=== PATIENT | male | born 1970 | race African-American/Black ===

== ENCOUNTER 2018-09-21 00:38 | Emergency (ER) | payer SELFPAY ==
--- OUTSIDE RECORDS SUMMARY | 2018-09-21 00:39 | XMS REPORT | Clinical Summary ---
:1970 Author Organization [facility] Address [address] [place] [id number] Care Team Providers Name Role Phone Asked, No Pcp Primary Care Provider Unavailable Allergies No Known Allergies Medications Medication Sig Dispensed Refills Start Date End Date Status hydrALAZINE Take 25 mg by 0 Active (APRESOLINE) 25 MG mouth 3 (three) tablet times a day. amLODIPine (NORVASC) 10 Take 10 mg by 0 Active mg tablet mouth daily. lisinopril Take 10 mg by 0 Active (PRINIVIL,ZESTRIL) 10 mouth daily. mg tablet insulin NPH and regular Inject under the 0 Active human (NovoLIN 70/30) skin. 100 unit/mL (70-30) injection Active Problems Not on file Family History Medical History Relation Name Comments No Known Problems Father Diabetes Mother Diabetes Other siblings Heart disease Other siblings Relation Name Status Comments Father Alive Mother Alive Other siblings Alive Social History Tobacco Use Types Packs/Day Years Used Date Current Every Day Smoker Cigars Smokeless Tobacco: Never Used Alcohol Use Drinks/Week oz/Week Comments No Sex Assigned at Date Recorded Not on file Job Start Date Occupation Industry Not on file Not on file Not on file Travel History Travel Start Travel End No recent travel history available. Last Filed Vital Signs Not on file Plan of Treatment Health Maintenance Due Date Last Done Comments INFLUENZA VACCINE 05/14/2018 HEPATITIS B VACCINES Aged Out No longer eligible based on patient's age to complete this topic IPV VACCINES Aged Out No longer eligible based on patient's age to complete this topic MENINGOCOCCAL VACCINE Aged Out No longer eligible based on patient's age to complete this topic Results Not on fileafter 09/20/2017 Insurance Payer Benefit Plan / Group Subscriber ID Type Phone Address [employer] xxxxxxxxx Workers [employer] Advance Directives Patient has advance care planning documents on file. For more information, please contact:Carlyle Hartley[address] [place] [address]
[2018-09-21 02:13] LABS: Protime INR 0.9
[2018-09-21 02:27] LABS: Absolute Lymphocytes (CBC) 1.8 K/uL (0.7-4.9); Absolute Monocytes 0.3 K/uL (0.1-1.3); Absolute Neutrophil 4.3 K/uL (1.8-8.0); Basophils % 2.8 % (0-1.3); Eosinophils % 1.1 % (0-4.4); Hematocrit 46.3 % (39.6-49.0); Lymphocytes % 26.8 % (15.3-44.8); MCH 30.8 pg (27.0-35.0); MCV 91.4 fL (80-100); MPV 9.3 fL (7.6-11.3); Monocytes % 5.2 % (3.3-12.3); RBC Red Blood Cell Count 5.06 M/uL (4.33-5.43)
--- NOTE | 2018-09-21 02:50 | ER ---
Nurse's Notes [facility] Name: Gustavo Huffman Age: 48 yrs Sex: Male : 1970 Arrival Date: 09/21/2018 Time: 00:39 Bed 16 Private MD: Diagnosis: Pain in hand and fingers Presentation: 09/21 00:58 Presenting complaint: Patient states: he had been out drinking and came home and went aa1 to sleep about 1900 and woke up at approx 2215 with tingling in his R hand. Denies any other symptoms. Transition of care: patient was not received from another setting of care. Onset of symptoms was September 20, 2018. Risk Assessment: Do you want to hurt yourself or someone else? Patient reports no desire to harm self or others. Initial Sepsis Screen: Does the patient meet any 2 criteria? No. Patient's initial sepsis screen is negative. Does the patient have a suspected source of infection? No. Patient's initial sepsis screen is negative. Care prior to arrival: None. 00:58 Method Of Arrival: Ambulatory aa1 00:58 Acuity: DAVID 3 aa1 Triage Assessment: 00:48 Pain: Complains of pain in right hand. cc3 01:09 General: Appears in no apparent distress. comfortable, Behavior is calm, cooperative, aa1 appropriate for age. Historical: - Allergies: : No Known Allergies; aa1 - Home Meds: :09 Insulin: Novolin N Sub-Q 30 unit twice a day [Active]; Hydralazine Oral 2 times per day aa1 [Active]; losartan Oral once daily [Active]; atorvastatin oral oral once daily [Active]; Metformin Oral 2 times per day [Active]; amlodipine oral once daily [Active]; - PMHx: 01:09 Diabetes - IDDM; Hypertension; SD; aa1 - PSHx: 01:09 None; aa1 - Immunization history:: Flu vaccine is not up to date. - Social history:: Smoking status: Patient uses tobacco products, cigars. - Ebola Screening: : No symptoms or risks identified at this time. Screenin:48 Abuse screen: Denies threats or abuse. Denies injuries from another. Nutritional cc3 screening: No deficits noted. Tuberculosis screening: No symptoms or risk factors identified. Fall Risk Ambulatory Aid- None/Bed Rest/Nurse Assist (0 pts). Gait- Normal/Bed Rest/Wheelchair (0 pts) Mental Status- Oriented to own ability (0 pts). 02:30 Patient has been NPO before screening. The patient is alert, able to follow commands. cc3 The patient does not exhibit slurred or garbled speech The patient is not exhibiting difficulty speaking. The patient does not exhibit difficulty understanding words. The patient is able to swallow own secretions with no drooling or need for suction. Patient tolerated one teaspoon of water. No drooling, immediate coughing, gurgling, or clearing of the throat was noted. The patient tolerated 90mL of water. No drooling, immediate coughing, gurgling, or clearing of the throat was noted. The patient passed the bedside swallow screening. Oral medications may be given as ordered. Contact Physician for further diet orders. Provider notified of bedside swallow screening results: Nicole MCKINNON. Assessment: 00:48 General: Appears in no apparent distress. comfortable, Behavior is calm, cooperative, cc3 appropriate for age. Pain: Complains of pain in right hand. Neuro: Level of Consciousness is awake, alert, obeys commands, Oriented to person, place, time, situation, Appropriate for age. Cardiovascular: Denies chest pain. Respiratory: Airway is patent Respiratory effort is even, unlabored, Respiratory pattern is regular, symmetrical. GI: Abdomen is round obese. : No signs and/or symptoms were reported regarding the genitourinary system. EENT: No signs and/or symptoms were reported regarding the EENT system. Derm: No signs and/or symptoms reported regarding the dermatologic system. Musculoskeletal: Circulation, motion, and sensation intact. Range of motion: intact in all extremities. 01:30 Reassessment: Patient appears in no apparent distress at this time. Patient and/or cc3 family updated on plan of care and expected duration. Pain level reassessed. Patient is alert, oriented x 3, equal unlabored respirations, skin warm/dry/pink. 02:15 Reassessment: Patient appears in no apparent distress at this time. Patient and/or cc3 family updated on plan of care and expected duration. Pain level reassessed. Patient is alert, oriented x 3, equal unlabored respirations, skin warm/dry/pink. 03:00 Reassessment: Patient appears in no apparent distress at this time. Patient and/or cc3 family updated on plan of care and expected duration. Pain level reassessed. Patient is alert, oriented x 3, equal unlabored respirations, skin warm/dry/pink. CHECKING DEPARTMENT SUPERVISOR Noé discharged the patient home, no prescription given. IV cannula removed and patient left ER vitally stable and ambulatory with his family. Vital Signs: 01:09 BP 143 / 94; Pulse 78; Resp 18; Temp 97.9; Pulse Ox 100% on R/A; Weight 118.39 kg; aa1 Height 6 ft. 1 in. (185.42 cm); Pain 0/10; 02:36 BP 125 / 72; Pulse 66; Resp 18 S; Pulse Ox 97% on R/A; cc3 01:09 Body Mass Index 34.43 (118.39 kg, 185.42 cm) aa1 ED Course: 00:39 Patient arrived in ED. ds1 00:48 Ragini Griffin is Primary Nurse. cc3 00:48 Patient has correct armband on for positive identification. Placed in gown. Bed in low cc3 position. Call light in reach. Side rails up X 1. radiation monitor on. Pulse ox on. NIBP on. 01:05 Triage completed. aa1 01:09 Arm band placed on. aa1 01:18 [facility]. nh 01:18 Barry Dawkins MD is Attending Physician. nh 01:50 Radiology exam delayed due to IV being inserted for labs at this time. kw1 02:01 Inserted saline lock: 20 gauge in left antecubital area, using aseptic technique. Blood oe collected. 02:07 CT Stroke Brain w/o Contrast In Process Unspecified. EDMS 02:08 Patient moved to radiology via stretcher. kw1 02:15 X-ray completed. Patient moved back from radiology. sg4 02:17 Stroke CXR 1 View In Process Unspecified. EDMS 03:00 No provider procedures requiring assistance completed. IV discontinued, intact, cc3 bleeding controlled, No redness/swelling at site. Pressure dressing applied. Administered Medications: No medications were administered Point of Care Testing: Blood Glucose: 02:28 Blood Glucose: 244 mg/dL; cc3 Ranges: Outcome: 02:49 Discharge ordered by . nh 03:00 Discharged to home ambulatory, with family. cc3 03:00 Condition: stable 03:00 Discharge instructions given to patient, family, Instructed on discharge instructions, follow up and referral plans. Demonstrated understanding of instructions, follow-up care. 03:03 Patient left the ED. cc3 Signatures: Dispatcher [employer] EDEmi Hammond, RN RN aa1 Nicole Umanzor, KITCHENWHERE MAKER KITCHENWHERE MAKER indira Drew, Alpa ds1 Michael Henderson Kimberly kw1 Ragini Griffin cc3 Jessica Jaquez4
--- NOTE | 2018-09-21 02:50 | EDPHYS ---
Physician Documentation [facility] Name: Gustavo Huffman Age: 48 yrs Sex: Male : 1970 Arrival Date: 09/21/2018 Time: 00:39 Bed 16 Private MD: ED Physician Barry Dawkins HPI: 09/21 02:46 This 48 yrs old Black Male presents to ER via Ambulatory with complaints of Numbness Of nh Hand. 02:46 The patient or guardian reports numbness. The complaints affect the right hand nh diffusely. Context: The problem was sustained at home. Onset: The symptoms/episode began/occurred acutely, just prior to arrival. Modifying factors: The symptoms are alleviated by nothing, the symptoms are aggravated by nothing. Associated signs and symptoms: The patient has no apparent associated signs or symptoms. Severity of symptoms: At their worst the symptoms were moderate, just prior to arrival, in the emergency department the symptoms are unchanged. The patient has not experienced similar symptoms in the past. The patient has not recently seen a physician. Patient reports that he was sleeping on his right arm. He woke up and his right hand was asleep. Since, it has localized more to the ring and pinky finger.. Historical: - Allergies: : No Known Allergies; aa1 - Home Meds: : Insulin: Novolin N Sub-Q 30 unit twice a day [Active]; Hydralazine Oral 2 times per day aa1 [Active]; losartan Oral once daily [Active]; atorvastatin oral oral once daily [Active]; Metformin Oral 2 times per day [Active]; amlodipine oral once daily [Active]; - PMHx: 01:09 Diabetes - IDDM; Hypertension; SD; aa1 - PSHx: 01:09 None; aa1 - Immunization history:: Flu vaccine is not up to date. - Social history:: Smoking status: Patient uses tobacco products, cigars. - Ebola Screening: : No symptoms or risks identified at this time. ROS: 02:46 Constitutional: Negative for fever, chills, and weight loss, Eyes: Negative for injury, nh pain, redness, and discharge, ENT: Negative for injury, pain, and discharge, Neck: Negative for injury, pain, and swelling, Cardiovascular: Negative for chest pain, palpitations, and edema, Respiratory: Negative for shortness of breath, cough, wheezing, and pleuritic chest pain, Abdomen/GI: Negative for abdominal pain, nausea, vomiting, diarrhea, and constipation, Back: Negative for injury and pain, : Negative for injury, bleeding, discharge, and swelling, Skin: Negative for injury, rash, and discoloration, Neuro: Negative for headache, weakness, numbness, tingling, and seizure, Psych: Negative for depression, anxiety, suicide ideation, homicidal ideation, and hallucinations, Allergy/Immunology: Negative for hives, rash, and allergies, Endocrine: Negative for neck swelling, polydipsia, polyuria, polyphagia, and marked weight changes, Hematologic/Lymphatic: Negative for swollen nodes, abnormal bleeding, and unusual bruising. 02:46 MS/extremity: Positive for paresthesias, tingling. Exam: 02:46 Constitutional: This is a well developed, well nourished patient who is awake, alert, nh and in no acute distress. Head/Face: Normocephalic, atraumatic. Eyes: Pupils equal round and reactive to light, extra-ocular motions intact. Lids and lashes normal. Conjunctiva and sclera are non-icteric and not injected. Cornea within normal limits. Periorbital areas with no swelling, redness, or edema. ENT: Nares patent. No nasal discharge, no septal abnormalities noted. Tympanic membranes are normal and external auditory canals are clear. Oropharynx with no redness, swelling, or masses, exudates, or evidence of obstruction, uvula midline. Mucous membranes moist. Neck: Trachea midline, no thyromegaly or masses palpated, and no cervical lymphadenopathy. Supple, full range of motion without nuchal rigidity, or vertebral point tenderness. No Meningismus. Chest/axilla: Normal chest wall appearance and motion. Nontender with no deformity. No lesions are appreciated. Cardiovascular: Regular rate and rhythm with a normal S1 and S2. No gallops, murmurs, or rubs. Normal PMI, no JVD. No pulse deficits. Respiratory: Lungs have equal breath sounds bilaterally, clear to auscultation and percussion. No rales, rhonchi or wheezes noted. No increased work of breathing, no retractions or nasal flaring. Abdomen/GI: Soft, non-tender, with normal bowel sounds. No distension or tympany. No guarding or rebound. No evidence of tenderness throughout. Back: No spinal tenderness. No costovertebral tenderness. Full range of motion. Skin: Warm, dry with normal turgor. Normal color with no rashes, no lesions, and no evidence of cellulitis. MS/ Extremity: Pulses equal, no cyanosis. Neurovascular intact. Full, normal range of motion. Neuro: Awake and alert, GCS 15, oriented to person, place, time, and situation. Cranial nerves II-XII grossly intact. Motor strength 5/5 in all extremities. Sensory grossly intact. Cerebellar exam normal. Normal gait. Psych: Awake, alert, with orientation to person, place and time. Behavior, mood, and affect are within normal limits. Vital Signs: 01:09 BP 143 / 94; Pulse 78; Resp 18; Temp 97.9; Pulse Ox 100% on R/A; Weight 118.39 kg; aa1 Height 6 ft. 1 in. (185.42 cm); Pain 0/10; 02:36 BP 125 / 72; Pulse 66; Resp 18 S; Pulse Ox 97% on R/A; cc3 01:09 Body Mass Index 34.43 (118.39 kg, 185.42 cm) aa1 MDM: 01:18 Patient medically screened. or 02:46 Data reviewed: vital signs, nurses notes, and as a result, I will discharge patient. or Counseling: I had a detailed discussion with the patient and/or guardian regarding: the historical points, exam findings, and any diagnostic results supporting the discharge/admit diagnosis, the need for outpatient follow up, to return to the emergency department if symptoms worsen or persist or if there are any questions or concerns that arise at home. 09/21 01:36 Order name: Basic Metabolic Panel; Complete Time: 02:18 or 09/21 01:36 Order name: CBC with Diff; Complete Time: 02:33 or 09/21 01:36 Order name: Protime (+inr); Complete Time: 02:33 or 09/21 01:36 Order name: Ptt, Activated; Complete Time: 02:33 or 09/21 01:36 Order name: CT Stroke Brain w/o Contrast or 09/21 01:36 Order name: Stroke CXR 1 View or 09/21 01:36 Order name: EKG; Complete Time: 01:37 or 09/21 01:36 Order name: Accucheck; Complete Time: 02:30 or 09/21 01:36 Order name: Cardiac monitoring; Complete Time: 02:30 or 09/21 01:36 Order name: EKG - Nurse/Tech; Complete Time: 02:30 or 09/21 01:36 Order name: IV Saline Lock; Complete Time: 02:30 or 09/21 01:36 Order name: Labs collected and sent; Complete Time: 02:30 or 09/21 01:36 Order name: NPO; Complete Time: 02:30 or 09/21 01:36 Order name: O2 Per Protocol; Complete Time: 02:30 or 09/21 01:36 Order name: O2 Sat Monitoring; Complete Time: 02:30 or 09/21 01:36 Order name: Stroke Swallow Screen; Complete Time: 02:41 or Administered Medications: No medications were administered Point of Care Testing: Blood Glucose: 02:28 Blood Glucose: 244 mg/dL; cc3 Ranges: Critical Glucose Levels:Adult <50 mg/dl or >400 mg/dl <40 mg/dl or >180 mg/dl Disposition: 09/21/18 02:49 Discharged to Home. Impression: Pain in hand and fingers. - Condition is Stable. - Discharge Instructions: Ulnar Nerve Transposition. - Medication Reconciliation Form, Thank You Letter, Antibiotic Education, Prescription Opioid Use form. - Follow up: Private Physician; When: 2 - 3 days; Reason: Recheck today's complaints. - Problem is new. - Symptoms are unchanged. Addendum: 09/24/2018 21:51 Co-signature as Attending Physician, Barry Dawkins MD Available for consultation at p s1 all times. . Signatures: Dispatcher [employer] Emi Hanson, RN RN aa1 Nicole Umanzor, TOWN MARSHAL T[place] MARSHAL or Barry Dawkins MD MD ps1 Ragini Griffin cc3 Corrections: (The following items were deleted from the chart) 09/21 03:03 02:49 09/21/2018 02:49 Discharged to Home. Impression: Pain in hand and fingers. cc3 Condition is Stable. Forms are Medication Reconciliation Form, Thank You Letter, Antibiotic Education, Prescription Opioid Use. Follow up: Private Physician; When: 2 - 3 days; Reason: Recheck today's complaints. Problem is new. Symptoms are unchanged. or
--- NOTE | 2018-09-21 12:26 | RAD REPORT ---
EXAM DESCRIPTION: CT - Ct Stroke Brain Wo Cont - 09/21/2018 5:15 am CLINICAL HISTORY: NUMBNESS CVA symptomology COMPARISON: No comparisons TECHNIQUE: All CT scans are performed using dose optimization technique as appropriate and may inclu de automated exposure control or mA/KV adjustment according to patient size. FINDINGS: No intracranial hemorrhage, hydrocephalus or extra-axial fluid collection.No areas of brai n edema or evidence of midline shift. The paranasal sinuses and mastoids are clear. The calvarium is intact. IMPRESSION: No acute intracranial abnormality. If there is continued clinical concern for CVA, MR i maging of the brain would be recommended.
--- NOTE | 2018-09-21 12:32 | RAD REPORT ---
EXAM DESCRIPTION: RAD - Chest Single View - 09/21/2018 2:16 am CLINICAL HISTORY: PAIN Chest pain. COMPARISON: Chest Single View dated 12/18/2016; CHEST PA AND LAT 2 VIEW dated 08/30/2015; CHEST SINGLE VIEW dated 03/28/2011 FINDINGS: Portable technique limits examination quality. The lungs are grossly clear. The heart is normal in size. No displaced fractures. IMPRESSION: No acute intrathoracic process suspected.
--- NOTE | 2018-09-22 07:13 | EKG ---
Test Date: 2018-09-21 Test Time: 02:18:39 Land Survey Technician: [place] MEASUREMENT RESULTS: Intervals: Rate: 69 KS: 162 QRSD: 102 QT: 388 QTc: 415 [place]: P: 55 KS: 162 QRS: 85 T: 59 INTERPRETIVE STATEMENTS: Normal sinus rhythm Normal ECG Compared to ECG 12/19/2016 01:15:59 Myocardial infarct finding no longer present ST (T wave) deviation no longer present Electronically Signed On 09-22-18 07:11:08 HEAVY EQUIPMENT PLUMBING SUPERVISOR by Shaun Madsen
== END 2018-09-21 03:03 | disposition home or self-care (01) ==
LOC: ER 00:38
DX: M79.641 Pain in right hand (principal); M79.644 Pain in right finger(s); E11.9 Type 2 diabetes mellitus without complications; I10 Essential (primary) hypertension; I25.2 Old myocardial infarction; Z79.4 Long term (current) use of insulin; Z79.899 Other long term (current) drug therapy; Z72.0 Tobacco use
CPT/HCPCS: 36415; 70450; 71045; 80048; 82962; 85025; 85610; 85730; 93005; 99284

== ENCOUNTER 2023-08-04 10:49 | Emergency (ER) | payer OTHER ==
--- OUTSIDE RECORDS SUMMARY | 2023-08-04 10:55 | XMS REPORT | Continuity of Care Document ---
:1970 Author Organization [facility] t Address [address] [place] [address] Care Team Providers Name Role Phone PCP, PATIENT DOES NOT HAVE A Primary Care Physician UnavailJUNIE Lr Attending Clinician Unavailable RINKU YUAN Attending Clinician Unavailable SASKIA BEASLEY Attending Clinician Unavailable LAB90 Attending Clinician Unavailable MUMTAZ PRECIADO Attending Clinician Unavailable KADY WALKER Attending Clinician Unavailable RAFA BARRETT Attending Clinician Unavailable NATALIO GIRARD Attending Clinician Unavailable Tomek_T Attending Clinician Unavailable Doctor Unassigned, Juntura Attending Clinician Unavailable Gastroenterology, Tdc Telemed Attending Clinician UnavailOmid Rachel DO Attending Clinician ADRIA MARQUES Attending Clinician Unavailable Tomek_T Admitting Clinician Unavailable ADRIA MARQUES Admitting Clinician Unavailable Payers Payer Name Policy Type Policy Number Effective Date Expiration Date S rosalinda AETNA MP CVS 9 [id number] 2022 00:00:00 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 ON STAND AETNA [place] [place] [id number] 2022 00:00:00 Problems Condition Condition Condition Status Onset Resolution Last Treating Co mments Source Name Details Category Date Date Treatment Clinician Date Diabetes Diabetes Disease Active Kelse y mellitus mellitus 9-26 Seybol d type 2 type 2 00:00: - without without 00 Externa retinopath retinopath l y (multi y (multi HCC) HCC) DM type 2 DM type 2 Disease Active Shashi sey with with 9-05 Seybold diabetic diabetic 00:00: - mixed mixed 00 Externa hyperlipid hyperlipid l emia emia (multi (multi HCC) HCC) 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 00:00: - 00 Externa l Dermatitis Dermatitis Disease Active K elsey 6-20 Seybold 00:00: - 00 Externa l Type 2 Type 2 Disease Active Wendy diabetes diabetes 4-05 Seybol d mellitus mellitus 00:00: - with with 00 Externa hyperglyce hyperglyce l princess, with princess, with long-term long-term current current use of use of insulin insulin (multi (multi HCC) HCC) Other Other Disease Active Wendy hyperlipid hyperlipid 4-05 Se ybold emia emia 00:00: - 00 Externa l Hypertensi Hypertensi Disease Active K elsey on on 4-05 Seybold 00:00: - 00 Externa l Lumbar Lumbar Disease Active Wendy disc disc 4-05 Seybold herniation herniation 00:00: - 00 Externa l Heartburn Heartburn Disease Active Overview: [facility] 06-14 [facility]att[facility] it[facility] of 00:00: g of this [place] 00 note Medical might be Branch different from the original. Added automatic ally from request for surgery [id number] Abdominal Abdominal Disease Active Overview: Univers pain, pain, 06-14 Formattin ity of epigastric epigastric 00:00: g of this [place] 00 note Medical might be Branch different from the original. Added automatic ally from request for surgery [id number] Nausea Nausea Disease Active Overview: Univer s 06-14 Formattin ity of 00:00: g of this [place] note Medical might be Branch different from the original. Added automatic ally from request for surgery [id number] Allergies, Adverse Reactions, Alerts Allergy Allergy Status Severity Reaction(s) Onset Inactive Treating Comm ents Source Name Type Date Date Clinician NO KNOWN Drug Active Univers ALLERGIE Class ity of [facility] Family History Family Member Diagnosis Comments Start Date Stop Date Source Natural mother Diabetes [facility] Other [facility] Social History Social Habit Start Date Stop Date Quantity Comments Source Gender identity Wendy [address] leahmirtha - External History of tobacco Cigar Smoker Elissa guajardo Joselomirtha - use External [facility] Cigarettes smoked 2023-01-22 2023-01-22 Wendy Josuemirtah - current (pack per 00:00:00 00:00:00 Externa l day) - Reported Cigarette 2023-01-22 2023-01-22 Wendy Josuemirtha - pack-years 00:00:00 00:00:00 External Tobacco use and 2023-01-22 2023-01-22 Smokeless Wendymartínez sanchez - exposure 00:00:00 00:00:00 tobacco non-user External History of Social 2017-04-15 2017-04-[address] function 00:00:00 00:00:00 Hospital Alcohol intake 2016-11-14 2016-11-14 Current [facility] 00:00:00 00:00:00 non-drinker of Hospital alcohol (finding) Sex Ass[birth year] At [birth year] [facility] 00:[facility] Smoking Status Start Date Stop Date Source Smokes tobacco daily 2023-01-22 00:00:00 Wendy Josuemirtha - External Former smoker 2021-06-14 00:00:00 2021-06-14 00:00:00 [facility] Medications Ordered Filled Start Stop Current Ordering Indication Dosage Frequency Signature Comments Components Source Medication Medication Date Date Medication? Clinician (SIG) Name Name Potassium Yes [id number] 10meq Take 1 Wendy Chloride CR 9-25 capsule by Se ybold 10 MEQ oral 00:00: mouth once - Cap CR 00 daily Externa l Metformin Yes [id number] TAKE 1 Ke lsey HCl 1000 MG 9-25 TABLET BY Sey bold oral Tablet 00:00: MOUTH - 00 TWICE Externa DAILY IN l THE MORNING AND IN THE EVENING - TAKE WITH MEALS hydroCHLORO Yes [id number] 25mg Take 1 Wendy thiazide 25 9-25 tablet by Sey bold MG oral 00:00: mouth once - Tablet 00 daily Externa l Amlodipine 2023-0 Yes [id number] 5mg Take 1 K elsey Besylate 9-25 tablet by Seybol d (NORVASC) 5 00:00: mouth once - MG oral 00 daily Externa Tablet l hydrALAZINE Yes [id number] 25mg Take 1 Wendy HCl 25 MG 9-25 tablet by Seybo ld oral Tablet 00:00: mouth - 00 twice Externa daily l Trulicity 3 2022- Yes [id number] 3mg Inject 3 Wendy MG/0.5ML 9-05 mg into Seybold subcutaneou 00:00: the skin - s Solution 00 once a Externa Pen-injecto week. l r Pravastatin Yes [id number] 40mg Take 1 Wendy Sodium 40 9-05 3 tablet (40 Seyb old MG oral 00:00: mg total) - Tablet 00 by mouth Externa nightly. l Metformin Yes [id number] 1000mg Take 1 Wendy HCl 1000 MG 9-05 tablet Seybol d oral Tablet 00:00: (1,000 mg - 00 total) by Externa mouth l daily (with breakfast) . Insulin Yes [id number] 10 units Ke lsey Regular 9-05 sc once Seybold Human 00:00: daily with - (NovoLIN R) 00 meals. 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 Trulicity 3 Yes [id number] 3mg Inject 3 Wendy MG/0.5ML 9-05 mg into Seybold subcutaneou 00:00: the skin - s Solution 00 once a Externa Pen-injecto week. l r Pravastatin 2022- Yes [id number] 40mg Take 1 Wendy Sodium 40 9-05 3 tablet (40 Seyb old MG oral 00:00: mg total) - Tablet 00 by mouth Externa nightly. l Insulin Yes [id number] 10 units Ke lsey Regular 9-05 sc once Seybold Human 00:00: daily with - (NovoLIN R) 00 meals. [employer]talk Software Developer a 100 UNIT/ML l injection Solution Sildenafil 2022-0 Yes [id number] 100mg QD Take 1 Wendy Citrate 9-05 tablet Seybold (Viagra) 00:00: (100 mg - 100 MG oral 00 total) by Ext sohail Tablet mouth l daily as needed for erectile dysfunctio n. Gabapentin 2022-0 Yes [id number] 100mg Q.5D Take 1 Wendy 100 MG oral 7-13 capsule Seybo ld Capsule 00:00: (100 mg - 00 total) by Externa mouth 2 l times daily as needed (pain) Gabapentin 2022-0 Yes [id number] 100mg Q.5D Take 1 Wendy 100 MG oral 7-13 capsule Seybo ld Capsule 00:00: (100 mg - 00 total) by Externa mouth 2 l times daily as needed (pain) Sildenafil 0 3- No [id number] 100mg QD Take 1 Wendy Citrate 6-29 09-05 tablet Seybold (Viagra) 00:00: 00:00 (100 mg - 100 MG oral 00 :00 total) by Ext sohail Tablet mouth l daily as needed for erectile dysfunctio n Trulicity 0 Yes [id number] 1.5mg Inject 1.5 Wendy 1.5 6-20 3 mg into Seybold MG/0.5ML 00:00: the skin - subcutaneou 00 once a [employer] Software Developer a s Solution week l Pen-injecto r Losartan 2022-0 Yes [id number] 25mg Take 1 Shashi sey Potassium 6-20 tablet (25 Seyb old 25 MG oral 00:00: mg total) - Tablet 00 by mouth Externa daily l Ketoconazol 2022-0 Yes [id number] Apply Wendy e 2 % apply 6-20 twice Seybold externally 00:00: daily - Cream 00 Externa l Losartan 2022-0 Yes [id number] 25mg Take 1 Shashi sey Potassium 6-20 tablet (25 Seyb old 25 MG oral 00:00: mg total) - Tablet 00 by mouth Externa daily l Ketoconazol 2022-0 Yes [id number] Apply Wendy e 2 % apply 6-20 twice Seybold externally 00:00: daily - Cream 00 Externa l Losartan 2022-0 Yes [id number] 25mg Take 1 Shashi sey Potassium 6-20 tablet (25 Seyb old 25 MG oral 00:00: mg total) - Tablet 00 by mouth Externa daily l Ketoconazol Yes [id number] Apply Wendy e 2 % apply 6-20 twice Seybold externally 00:00: daily - Cream 00 Externa l Trulicity 2022- No [id number] 1.5mg Inject 1.5 Wendy 1.5 6-20 09-05 3 mg into Seybold MG/0.5ML 00:00: 00:00 the skin - subcutaneou 00 :00 once a [employer] Software Developer a s Solution week l Pen-injecto r Insulin Yes [id number] 10 units K elsey Regular 5-23 sc twice Seybold Human 00:00: daily with - (NovoLIN R) 00 meals Externa 100 UNIT/ML l injection Solution Insulin Yes [id number] 10 units K elsey NPH, 5-23 sc twice Seybold Human,, 00:00: daily - Isophane, 00 Externa (NovoLIN N) l 100 UNIT/ML subcutaneou s Suspension Insulin Yes [id number] 10 units K elsey NPH, 5-23 sc twice Seybold Human,, 00:00: daily - Isophane, 00 Externa (NovoLIN N) l 100 UNIT/ML subcutaneou s Suspension Insulin Yes [id number] 10 units K elsey NPH, 5-23 sc twice Seybold Human,, 00:00: daily - Isophane, 00 Externa (NovoLIN N) l 100 UNIT/ML subcutaneou s Suspension Insulin 2022- No [id number] 10 units Wendy Regular 5-23 09-05 sc twice Seybold Human 00:00: 00:00 daily with - (NovoLIN R) 00 :00 meals Externa 100 UNIT/ML l injection Solution Insulin 2022- No 10U Inject 10 Elissa ey NPH, 5-22 05-22 units into Seybold Human,, 15:39: 00:00 the skin 2 - Isophane, 55 :00 times Externa 100 UNIT/ML daily l subcutaneou s Suspension Insulin 2022- No 10U Inject 10 Elissa ey Regular 5-22 05-22 units into Seybo ld Human 100 15:39: 00:00 the skin 2 - UNIT/ML 55 :00 times Externa injection daily l Solution INSULIN 2022- No [id number] 20U Inject 20 Wendy ISOPHANE & 5-22 05-22 units into Se ybold REG MIX, 15:37: 00:00 the skin - HUMAN, 27 :00 daily Externa (70-30) 100 (with l UNIT/ML breakfast) subcutaneou Patient s takes 30 Suspension units of N and 10 units of R in the mornings AMLODIPINE 0 2022- No [id number] 5mg Take 5 mg Wendy BENZOATE OR 5-22 05-22 by mouth Sey bold 15:35: 00:00 daily - 53 :00 Externa l Lisinopril Yes [id number] 20mg Take 1 K elsey 20 MG oral 5-22 tablet (20 Sey bold Tablet 00:00: mg total) - 00 by mouth Externa daily l Insulin Yes [id number] 10U Inject 10 Wendy Regular 5-22 3 units into Seybol d Human 100 00:00: the skin 2 - UNIT/ML 00 times Externa injection daily l Solution Insulin Yes [id number] 10U Inject 10 Wendy NPH, 5-22 3 units into Seybold Human,, 00:00: the skin 2 - Isophane, 00 times Externa 100 UNIT/ML daily l subcutaneou s Suspension Trulicity Yes [id number] .75mg Inject Wendy 0.75 5-22 3 0.75 mg Seybold MG/0.5ML 00:00: into the - subcutaneou 00 skin once Ext sohail s Solution a week l Pen-injecto r Sildenafil Yes [id number] 100mg QD Take 1 Wendy Citrate 5-22 tablet Seybold (Viagra) 00:00: (100 mg - 100 MG oral 00 total) by Ext sohail Tablet mouth l daily as needed for erectile dysfunctio n Sildenafil 2022- Yes [id number] 100mg QD Take 1 Wendy Citrate 5-22 tablet Seybold (Viagra) 00:00: (100 mg - 100 MG oral 00 total) by Ext sohail Tablet mouth l daily as needed for erectile dysfunctio n Lisinopril 2022- No [id number] 20mg Take 1 Wendy 20 MG oral 03-0420 tablet (20 Se ybold Tablet 00:00: 00:00 mg total) - 00 :00 by mouth Externa daily l Trulicity 2022- No [id number] .75mg Inject Wendy 0.75 03-04 3 0.75 mg Seybold MG/0.5ML 00:00: 00:00 into the - subcutaneou 00 :00 skin once Ext sohail s Solution a week l Pen-injecto r INSULIN Yes [id number] 20U Inject 20 K elsey ISOPHANE & 4-27 units into Sey bold REG MIX, 13:49: the skin - HUMAN, 00 daily Externa (70-30) 100 (with l UNIT/ML breakfast) subcutaneou Patient s takes 30 Suspension units of N and 10 units of R in the mornings AMLODIPINE Yes [id number] 5mg Take 5 mg Wendy BENZOATE OR 4-27 by mouth Seyb old 13:49: daily - 00 Externa l Insulin Yes [id number] For use Shashi sey Syringe-Nee 4-24 twice a Seybo ld dle U-100 00:00: day to - (RELI-ON 00 monitor Externa INS SYR blood l 1CC/30G) glucose 30G 1 ML for ICD does not E11.9 apply Misc BD Insulin Yes Wendy Syringe U/F 4-24 Seybold 31G X 02/26" 00:00: - 1 ML does 00 Externa not apply l Misc Insulin Yes [id number] For use Shashi sey Syringe-Nee 4-24 twice a Seybo ld dle U-100 00:00: day to - (RELI-ON 00 monitor Externa INS SYR blood l 1CC/30G) glucose 30G 1 ML for ICD does not E11.9 apply Misc BD Insulin Yes Wendy Syringe U/F 4-24 Seybold 31G X 02/26" 00:00: - 1 ML does 00 Externa not apply l Misc Insulin Yes [id number] For use Shashi sey Syringe-Nee 4-24 twice a Seybo ld dle U-100 00:00: day to - (RELI-ON 00 monitor Externa INS SYR blood l 1CC/30G) glucose 30G 1 ML for ICD does not E11.9 apply Misc BD Insulin 0 Yes Wendy Syringe U/F 4-24 Seybold 31G X 02/26" 00:00: - 1 ML does 00 Externa not apply l Misc Insulin 0 Yes [id number] For use Shashi sey Syringe-Nee 4-24 twice a Seybo ld dle U-100 00:00: day to - (RELI-ON 00 monitor Externa INS SYR blood l 1CC/30G) glucose 30G 1 ML for ICD does not E11.9 apply Misc BD Insulin Yes Wendy Syringe U/F 4-24 Seybold 31G X 02/26" 00:00: - 1 ML does 00 Externa not apply l Misc Insulin Yes [id number] For use Shashi sey Syringe-Nee 4-24 twice a Seybo ld dle U-100 00:00: day to - (RELI-ON 00 monitor Externa INS SYR blood l 1CC/30G) glucose 30G 1 ML for ICD does not E11.9 apply Misc BD Insulin Yes Wendy Syringe U/F 4-24 Seybold 31G X 02/26" 00:00: - 1 ML does 00 Externa not apply l Misc Insulin Pen Yes [id number] Use as Wendy Needle 4-17 directed Seybold (Maxi-Comfo 00:00: - rt Safety 00 Externa Pen Needle) l 29G X 8MM does not apply Misc Insulin Pen 0 Yes [id number] Use as Wendy Needle 4-17 directed Seybold (Maxi-Comfo 00:00: - rt Safety 00 Externa Pen Needle) l 29G X 8MM does not apply Misc Insulin Pen 0 Yes [id number] Use as Wendy Needle 4-17 directed Seybold (Maxi-Comfo 00:00: - rt Safety 00 Externa Pen Needle) l 29G X 8MM does not apply Misc Insulin Pen Yes [id number] Use as Wendy Needle 4-17 directed Seybold (Maxi-Comfo 00:00: - rt Safety 00 Externa Pen Needle) l 29G X 8MM does not apply Misc Insulin Pen Yes [id number] Use as Wendy Needle 4-17 directed Seybold (Maxi-Comfo 00:00: - rt Safety 00 Externa Pen Needle) l 29G X 8MM does not apply Misc Omeprazole 2022-0 2022- No 40mg Take 1 Elissa ey 40 MG oral 4-11 04-11 capsule Seybo ld Delayed 14:32: 00:00 (40 mg - Release 30 :00 total) by Externa Capsule mouth l daily AMLODIPINE Yes [id number] 5mg Take 5 mg Wendy BENZOATE OR 4-11 by mouth Seyb old 14:18: daily - 10 Externa l INSULIN Yes [id number] 20U Inject 20 K elsey ISOPHANE & 4-11 units into Sey bold REG MIX, 14:18: the skin - HUMAN, 10 daily Externa (70-30) 100 (with l UNIT/ML breakfast) subcutaneou Patient s takes 30 Suspension units of N and 10 units of R in the mornings Omeprazole 0 Yes [id number] 40mg Take 1 Wendy 40 MG oral 4-11 capsule Seybol d Delayed 00:00: (40 mg - Release 00 total) by Externa Capsule mouth l daily Amoxicillin 0 Yes [id number] 1{tbl} Take 1 Wendy -Pot 4-11 tablet by Seybold Clavulanate 00:00: mouth 2 - 875-125 MG 00 times Externa oral Tablet daily l Omeprazole 2022-0 Yes [id number] 40mg Take 1 Wendy 40 MG oral 4-11 capsule Seybol d Delayed 00:00: (40 mg - Release 00 total) by Externa Capsule mouth l daily Omeprazole 2022-0 Yes [id number] 40mg Take 1 Wendy 40 MG oral 4-11 capsule Seybol d Delayed 00:00: (40 mg - Release 00 total) by Externa Capsule mouth l daily Omeprazole 2022-0 Yes [id number] 40mg Take 1 Wendy 40 MG oral 4-11 capsule Seybol d Delayed 00:00: (40 mg - Release 00 total) by Externa Capsule mouth l daily Omeprazole 2022-0 Yes [id number] 40mg Take 1 Wendy 40 MG oral 4-11 capsule Seybol d Delayed 00:00: (40 mg - Release total) by Externa Capsule mouth l daily Omeprazole 2022-0 Yes [id number] 40mg Take 1 Wendy 40 MG oral 4-11 capsule Seybol d Delayed 00:00: (40 mg - Release total) by Externa Capsule mouth l daily Amoxicillin 2022-0 Yes [id number] 1{tbl} Take 1 Wendy -Pot 4-11 tablet by Seybold Clavulanate 00:00: mouth 2 - 875-125 MG 00 times Externa oral Tablet daily l Amoxicillin 2022-0 2022- No [id number] 1{tbl} Take 1 Wendy -Pot 4-11 05-22 tablet by Seybold Clavulanate 00:00: 00:00 mouth 2 - 875-125 MG 00 :00 times Externa oral Tablet daily l Blood 2022-0 Yes [id number] Use twice Ke lsey Glucose 4-05 a day for Seybold Monitoring 00:00: blood - Suppl 00 glucose Externa (Blood monitoring l Glucose for ICD of Monitor E11.9. System) w/Device does not apply Kit Glucose Yes [id number] 1{each} 1 each by Wendy Blood in 4-05 other Seybold vitro Strip 00:00: route 2 - 00 times Externa daily For l use twice a day to monitor blood glucose for ICD E11.9. Lancet 2022-0 Yes [id number] For use Shashi sey Devices 4-05 twice a Seybold (Lancing 00:00: day to - Device) 00 monitor Externa does not blood l apply Misc glucose for ICD E11.9. Lancets 33G 2022-0 Yes [id number] 1{each} 1 each by Wendy does not 4-05 other Seybold apply Misc 00:00: route 2 - 00 times Externa daily For l use twice a day to monitor blood glucose for ICD E11.9. Blood 2022-0 Yes [id number] Use twice Ke lsey Glucose 4-05 a day for Seybold Monitoring 00:00: blood - Suppl 00 glucose Externa (Blood monitoring l Glucose for ICD of Monitor E11.9. System) w/Device does not apply Kit Glucose 2022-0 Yes [id number] 1{each} 1 each by Wendy Blood in 4-05 other Seybold vitro Strip 00:00: route 2 - 00 times Externa daily For l use twice a day to monitor blood glucose for ICD E11.9. Lancet 2022-0 Yes [id number] For use Shashi sey Devices 4-05 twice a Seybold (Lancing 00:00: day to - Device) 00 monitor Externa does not blood l apply Misc glucose for ICD E11.9. Lancets 33G 2022-0 Yes [id number] 1{each} 1 each by Wendy does not 4-05 other Seybold apply Misc 00:00: route 2 - 00 times Externa daily For l use twice a day to monitor blood glucose for ICD E11.9. Blood 2022-0 Yes [id number] Use twice Ke lsey Glucose 4-05 a day for Seybold Monitoring 00:00: blood - Suppl 00 glucose Externa (Blood monitoring l Glucose for ICD of Monitor E11.9. System) w/Device does not apply Kit Glucose 2022-0 Yes [id number] 1{each} 1 each by Wendy Amezcua in 4-05 other Seybold vitro Strip 00:00: route 2 - 00 times Externa daily For l use twice a day to monitor blood glucose for ICD E11.9. Lancet 2022-0 Yes [id number] For use Shashi sey Devices 4-05 twice a Seybold (Lancing 00:00: day to - Device) 00 monitor Externa does not blood l apply Misc glucose for ICD E11.9. Lancets 33G 2022-0 Yes [id number] 1{each} 1 each by Wendy does not 4-05 other Seybold apply Misc 00:00: route 2 - 00 times Externa daily For l use twice a day to monitor blood glucose for ICD E11.9. Blood 2022-0 Yes [id number] Use twice Ke lsey Glucose 4-05 a day for Seybold Monitoring 00:00: blood - Suppl 00 glucose Externa (Blood monitoring l Glucose for ICD of Monitor E11.9. System) w/Device does not apply Kit Glucose 2022-0 Yes [id number] 1{each} 1 each by Wendy Blood in 4-05 other Seybold vitro Strip 00:00: route 2 - 00 times Externa daily For l use twice a day to monitor blood glucose for ICD E11.9. Lancet 2022-0 Yes [id number] For use Shashi sey Devices 4-05 twice a Seybold (Lancing 00:00: day to - Device) 00 monitor Externa does not blood l apply Misc glucose for ICD E11.9. Lancets 33G 2022-0 Yes [id number] 1{each} 1 each by Wendy does not 4-05 other Seybold apply Misc 00:00: route 2 - 00 times Externa daily For l use twice a day to monitor blood glucose for ICD E11.9. Blood 2022-0 Yes [id number] Use twice Ke lsey Glucose 4-05 a day for Seybold Monitoring 00:00: blood - Suppl 00 glucose Externa (Blood monitoring l Glucose for ICD of Monitor E11.9. System) w/Device does not apply Kit Glucose 2022-0 Yes [id number] 1{each} 1 each by Wendy Amezcua in 4-05 other Seybold vitro Strip 00:00: route 2 - 00 times Externa daily For l use twice a day to monitor blood glucose for ICD E11.9. Lancet 2022-0 Yes [id number] For use Shashi sey Devices 4-05 twice a Seybold (Lancing 00:00: day to - Device) 00 monitor Externa does not blood l apply Misc glucose for ICD E11.9. Lancets 33G 2022-0 Yes [id number] 1{each} 1 each by Wendy does not 4-05 other Seybold apply Misc 00:00: route 2 - 00 times Externa daily For l use twice a day to monitor blood glucose for ICD E11.9. Blood 2022-0 Yes [id number] Use twice Ke lsey Glucose 4-05 a day for Seybold Monitoring 00:00: blood - Suppl 00 glucose Externa (Blood monitoring l Glucose for ICD of Monitor E11.9. System) w/Device does not apply Kit Glucose 2022-0 Yes [id number] 1{each} 1 each by Wendy Blood in 4-05 other Seybold vitro Strip 00:00: route 2 - 00 times Externa daily For l use twice a day to monitor blood glucose for ICD E11.9. Lancet Yes [id number] For use Shsahi sey Devices 4-05 twice a Seybold (Lancing 00:00: day to - Device) 00 monitor Externa does not blood l apply Misc glucose for ICD E11.9. Lancets 33G 2022-0 Yes [id number] 1{each} 1 each by Wendy does not 4-05 other Seybold apply Misc 00:00: route 2 - 00 times Externa daily For l use twice a day to monitor blood glucose for ICD E11.9. Metformin 2022-0 2022- No 1000mg Take 1 Shashi sey HCl 1000 MG - 04-03 tablet Seybo ld oral Tablet 14:50: 00:00 (1,000 mg - 51 :00 total) by Externa mouth in l the morning and 1 tablet (1,000 mg total) in the evening. Take with meals. hydrALAZINE 2022-2022- No 25mg Take 1 Shashi sey HCl 25 MG - 04-03 tablet (25 Sey bold oral Tablet 14:50: 00:00 mg total) - 51 :00 by mouth 2 Externa times l daily Lisinopril 2022-2022- No 10mg Take 1 Elissa ey 10 MG oral 01-14-03 tablet (10 Se ybold Tablet 14:50: 00:00 mg total) - 51 :00 by mouth Externa daily l Potassium 2022-2022- No 10meq Take 1 Elissa ey Chloride CR - 04-03 capsule Seyb old 10 MEQ oral 14:50: 00:00 (10 mEq - Cap CR 51 :00 total) by Externa mouth l daily Pravastatin 2022-0 2022- No 20mg Take 1 Shashi sey Sodium 20 - 04-03 tablet (20 Sey bold MG oral 14:50: 00:00 mg total) - Tablet 51 :00 by mouth Externa daily l hydroCHLORO 2022-0 2022- No 25mg Take 1 Shashi sey thiazide 25 -03 04-03 tablet (25 S eybold MG oral 14:50: 00:00 mg total) - Tablet 51 :00 by mouth Externa daily l AMLODIPINE 2022-0 Yes [id number] 5mg Take 5 mg Wendy BENZOATE OR 4-03 by mouth Seyb old 14:04: daily - 06 Externa l INSULIN 2022-0 Yes [id number] 20U Inject 20 K elsey ISOPHANE & 4-03 units into Sey bold REG MIX, 14:04: the skin - HUMAN, 06 daily Externa (70-30) 100 (with l UNIT/ML breakfast) subcutaneou Patient s takes 30 Suspension units of N and 10 units of R in the mornings LOSARTAN 2022-0 2022- No Take by Zara y POTASSIUM -12 15-03 mouth 2 Seybol d OR 14:02: 00:00 times - 13 :00 daily Externa l HYDROXYZINE 2022-0 2022- No Take by Kt garcia HCL OR -12 15-03 mouth 2 Seybold 13:58: 00:00 times - 14 :00 daily Externa l ATORVASTATI 2022-0 2022- No Take by Kt garcia N CALCIUM -12 15-03 mouth Seybold OR 13:56: 00:00 every - 15 :00 night at Externa bedtime l Tadalafil 2022-0 Yes [id number] 10mg QD Take 1 K elsey (Cialis) 10 4-03 tablet (10 Se ybold MG oral 00:00: mg total) - Tablet 00 by mouth Externa daily as l needed for erectile dysfunctio n Amlodipine 2022-0 Yes [id number] 5mg Take 1 K elsey Besylate 4-03 tablet (5 Seybol d (NORVASC) 5 00:00: mg total) - MG oral 00 by mouth Externa Tablet daily l hydrALAZINE 2022-0 Yes [id number] 25mg Take 1 Wendy HCl 25 MG 4-03 tablet (25 Seyb old oral Tablet 00:00: mg total) - 00 by mouth 2 Externa times l daily hydroCHLORO 2022-0 Yes [id number] 25mg Take 1 Wendy thiazide 25 4-03 tablet (25 Se ybold MG oral 00:00: mg total) - Tablet 00 by mouth Externa daily l Lisinopril 2022-0 Yes [id number] 10mg Take 1 K elsey 10 MG oral 4-03 tablet (10 Sey bold Tablet 00:00: mg total) - 00 by mouth Externa daily l Metformin 2023-0 Yes [id number] 1000mg Take 1 Wendy HCl 1000 MG 4-03 tablet Seybol d oral Tablet 00:00: (1,000 mg - 00 total) by Externa mouth in l the morning and 1 tablet (1,000 mg total) in the evening. Take with meals. Potassium 2023-0 Yes [id number] 10meq Take 1 Wendy Chloride CR 4-03 capsule Seybo ld 10 MEQ oral 00:00: (10 mEq - Cap CR 00 total) by Externa mouth l daily Pravastatin 2023-0 Yes [id number] 20mg Take 1 Wendy Sodium 20 4-03 tablet (20 Seyb old MG oral 00:00: mg total) - Tablet 00 by mouth Externa daily l hydrALAZINE 2023-0 Yes [id number] 25mg Take 1 Wendy HCl 25 MG 4-03 tablet (25 Seyb old oral Tablet 00:00: mg total) - 00 by mouth 2 Externa times l daily hydroCHLORO 2023-0 Yes [id number] 25mg Take 1 Ewndy thiazide 25 4-03 tablet (25 Se ybold MG oral 00:00: mg total) - Tablet 00 by mouth Externa daily l Metformin 2023-0 Yes [id number] 1000mg Take 1 Wendy HCl 1000 MG 4-03 tablet Seybol d oral Tablet 00:00: (1,000 mg - 00 total) by Externa mouth in l the morning and 1 tablet (1,000 mg total) in the evening. Take with meals. Pravastatin 2023-0 Yes [id number] 20mg Take 1 Wendy Sodium 20 4-03 tablet (20 Seyb old MG oral 00:00: mg total) - Tablet 00 by mouth Externa daily l hydrALAZINE 2023-0 Yes [id number] 25mg Take 1 Wendy HCl 25 MG 4-03 tablet (25 Seyb old oral Tablet 00:00: mg total) - 00 by mouth 2 Externa times l daily hydroCHLORO 2023-0 Yes [id number] 25mg Take 1 Wendy thiazide 25 4-03 tablet (25 Se ybold MG oral 00:00: mg total) - Tablet 00 by mouth Externa daily l Metformin 2023-0 Yes [id number] 1000mg Take 1 Wendy HCl 1000 MG 4-03 tablet Seybol d oral Tablet 00:00: (1,000 mg - 00 total) by Externa mouth in l the morning and 1 tablet (1,000 mg total) in the evening. Take with meals. Pravastatin 2023-0 Yes [id number] 20mg Take 1 Wendy Sodium 20 4-03 tablet (20 Seyb old MG oral 00:00: mg total) - Tablet 00 by mouth Externa daily l hydrALAZINE 2023-0 Yes [id number] 25mg Take 1 Wendy HCl 25 MG 4-03 tablet (25 Seyb old oral Tablet 00:00: mg total) - 00 by mouth 2 Externa times l daily hydroCHLORO 2023-0 Yes [id number] 25mg Take 1 Wendy thiazide 25 4-03 tablet (25 Se ybold MG oral 00:00: mg total) - Tablet 00 by mouth Externa daily l Tadalafil 2023-0 Yes [id number] 10mg QD Take 1 K elsey (Cialis) 10 4-03 tablet (10 Se ybold MG oral 00:00: mg total) - Tablet 00 by mouth Externa daily as l needed for erectile dysfunctio n Amlodipine 3-0 Yes [id number] 5mg Take 1 K elsey Besylate 4-03 tablet (5 Seybol d (NORVASC) 5 00:00: mg total) - MG oral 00 by mouth Externa Tablet daily l hydrALAZINE 2023-0 Yes [id number] 25mg Take 1 Wendy HCl 25 MG 4-03 tablet (25 Seyb old oral Tablet 00:00: mg total) - 00 by mouth 2 Externa times l daily hydroCHLORO 2023-0 Yes [id number] 25mg Take 1 Wendy thiazide 25 4-03 tablet (25 Se ybold MG oral 00:00: mg total) - Tablet 00 by mouth Externa daily l Lisinopril 2023-0 Yes [id number] 10mg Take 1 K elsey 10 MG oral 4-03 tablet (10 Sey bold Tablet 00:00: mg total) - 00 by mouth Externa daily l Metformin 2023-0 Yes [id number] 1000mg Take 1 Wendy HCl 1000 MG 4-03 tablet Seybol d oral Tablet 00:00: (1,000 mg - 00 total) by Externa mouth in l the morning and 1 tablet (1,000 mg total) in the evening. Take with meals. Potassium 2023-0 Yes [id number] 10meq Take 1 Wendy Chloride CR 4-03 capsule Seybo ld 10 MEQ oral 00:00: (10 mEq - Cap CR 00 total) by Externa mouth l daily Pravastatin 2022-0 Yes [id number] 20mg Take 1 Wendy Sodium 20 4-03 tablet (20 Seyb old MG oral 00:00: mg total) - Tablet 00 by mouth Externa daily l Tadalafil 2022-0 Yes [id number] 10mg QD Take 1 K elsey (Cialis) 10 4-03 tablet (10 Se ybold MG oral 00:00: mg total) - Tablet 00 by mouth Externa daily as l needed for erectile dysfunctio n Amlodipine 2022-0 Yes [id number] 5mg Take 1 K elsey Besylate 4-03 tablet (5 Seybol d (NORVASC) 5 00:00: mg total) - MG oral 00 by mouth Externa Tablet daily l hydrALAZINE 2022-0 Yes [id number] 25mg Take 1 Wendy HCl 25 MG 4-03 tablet (25 Seyb old oral Tablet 00:00: mg total) - 00 by mouth 2 Externa times l daily hydroCHLORO 2022-0 Yes [id number] 25mg Take 1 Wendy thiazide 25 4-03 tablet (25 Se ybold MG oral 00:00: mg total) - Tablet 00 by mouth Externa daily l Lisinopril 2022-0 Yes [id number] 10mg Take 1 K elsey 10 MG oral 4-03 tablet (10 Sey bold Tablet 00:00: mg total) - 00 by mouth Externa daily l Metformin 2022-0 Yes [id number] 1000mg Take 1 Wendy HCl 1000 MG 4-03 tablet Seybol d oral Tablet 00:00: (1,000 mg - 00 total) by Externa mouth in l the morning and 1 tablet (1,000 mg total) in the evening. Take with meals. Potassium 2022-0 Yes [id number] 10meq Take 1 Wendy Chloride CR 4-03 capsule Seybo ld 10 MEQ oral 00:00: (10 mEq - Cap CR 00 total) by Externa mouth l daily Pravastatin 2022-0 Yes [id number] 20mg Take 1 Wendy Sodium 20 4-03 tablet (20 Seyb old MG oral 00:00: mg total) - Tablet 00 by mouth Externa daily l Metformin 2022- No [id number] 1000mg Take 1 Wendy HCl 1000 MG 01-14 tablet Seybo ld oral Tablet 00:00: 00:00 (1,000 mg - 00 :00 total) by Externa mouth in l the morning and 1 tablet (1,000 mg total) in the evening. Take with meals. Pravastatin 2022- No [id number] 20mg Take 1 Wendy Sodium 20 01-14 tablet (20 Sey bold MG oral 00:00: 00:00 mg total) - Tablet 00 :00 by mouth Externa daily l Tadalafil 2022- No [id number] 10mg QD Take 1 Wendy (Cialis) 10 01-14 tablet (10 S eybold MG oral 00:00: 00:00 mg total) - Tablet 00 :00 by mouth Externa daily as l needed for erectile dysfunctio n Amlodipine 2022- No [id number] 5mg Take 1 Wendy Besylate 01-14 tablet (5 Seybo ld (NORVASC) 5 00:00: 00:00 mg total) - MG oral 00 :00 by mouth Externa Tablet daily l Lisinopril 2022- No [id number] 10mg Take 1 Wendy 10 MG oral 01-14 tablet (10 Se ybold Tablet 00:00: 00:00 mg total) - 00 :00 by mouth Externa daily l Potassium 2022- No [id number] 10meq Take 1 Wendy Chloride CR 01-14 capsule Seyb old 10 MEQ oral 00:00: 00:00 (10 mEq - Cap CR 00 :00 total) by Externa mouth l daily Azithromyci 2022- No [id number] Take 2 Wendy n 250 MG 01-14 tablets by Seyb old oral Tablet 00:00: 00:00 mouth on - 00 :00 day 1 then Externa 1 tablet l by mouth daily for 4 days thereafter . Azithromyci 2022- No [id number] Take 2 Wendy n 250 MG -03 04-09 tablets by Seyb old oral Tablet 00:00: 04:59 mouth on - 00 :00 day 1 then Externa 1 tablet l by mouth daily for 4 days thereafter . FAMOTIDINE 2022- No Take by Shashi soliz OR 01-11 mouth 2 Seybold 14:06: 00:00 times - 02 :00 daily Externa l traMADol 50 Yes [id number] 50mg Take 1 [facility] mg tablet 2-27 tablet by ity o f 00:00: mouth at [place] 00 bedtime as Medical needed for Branch Pain (scale 4-6) or Pain (scale 7-10). traMADol 50 Yes [id number] 50mg Take 1 [facility] mg tablet 2-27 tablet by ity o f 00:00: mouth at [place] 00 bedtime as Medical needed for Branch Pain (scale 4-6) or Pain (scale 7-10). traMADol 50 Yes [id number] 50mg Take 1 [facility] mg tablet 2-27 tablet by ity o f 00:00: mouth at [place] 00 bedtime as Medical needed for Branch Pain (scale 4-6) or Pain (scale 7-10). hydrALAZINE Yes 25mg Q.[id number] Take 25 mg [facility] (APRESOLINE 11-[id number] mouth [address] ) 25 MG 14:42: 3D (three) [facility] tablet 24 times a l day. amLODIPine Yes 10mg QD Take 10 mg M [facility] (NORVASC) 11-[address] 10 mg 14:42: daily. Hospita tablet 24 l lisinopril Yes 10mg QD Take 10 mg [facility] (PRINIVIL,Z [address] ESTRIL) 10 14:42: daily. Hospi ta mg tablet 24 l insulin NPH Yes Inject Meth jesus and regular 2-[address] human 14:42: skin. Hospita (NovoLIN 24 l 70/30) 100 unit/mL (70-30) injection LISINOPRIL 2015-10 Yes Take by [facility] ers ORAL 0-17 mouth. ity of 17:18: [address] INSULIN 2015-10 Yes inject Univers ZINC HUMAN 0-17 under the ity of RECOMBINANT 17:18: skin. [place] ([address]) [place] HYDROCHLORO 2015-10 Yes Take by Uni vers THIAZIDE 0-17 mouth. ity of ORAL 17:18: [address] LISINOPRIL 2015-10 Yes Take by [facility] ers ORAL 0-17 mouth. ity of 17:18: [address] INSULIN 2015-10 Yes inject Univers ZINC HUMAN 0-17 under the ity of RECOMBINANT 17:18: skin. [place] ([address]) [place] HYDROCHLORO 2015-10 Yes Take by Uni vers THIAZIDE 0-17 mouth. ity of ORAL 17:18: [address] LISINOPRIL 2015-10 Yes Take by [facility] ers ORAL 0-17 mouth. ity of 12:18: [address] INSULIN 2015-10 Yes inject Univers ZINC HUMAN 0-17 under the ity of RECOMBINANT 12:18: skin. [place] ([address]) [place] HYDROCHLORO 2015-10 Yes Take by Uni vers THIAZIDE 0-17 mouth. ity of ORAL 12:18: [address] acetaminoph 2015-10 Yes 1{tbl} Take 1 Un jenise en-codeine 0-05 tablet by ity of (TYLENOL 00:00: mouth [place] #4) 300-60 00 every 4 Medica l mg tablet (four) Branch hours as needed for Pain for up to 16 doses. acetaminoph 2015-10 Yes 1{tbl} Take 1 Un jenise en-codeine 0-05 tablet by ity of (TYLENOL 00:00: mouth [place] #4) 300-60 00 every 4 Medica l mg tablet (four) Branch hours as needed for Pain for up to 16 doses. acetaminoph 2015-10 Yes 1{tbl} Take 1 Un jenise en-codeine 0-05 tablet by ity of (TYLENOL 00:00: mouth [place] #4) 300-60 00 every 4 Medica l mg tablet (four) Branch hours as needed for Pain for up to 16 doses. Immunizations Ordered Filled Immunization Date Status Comments [facility] e Immunization Name Name Covid-19 Vaccine 2021-03-29 Completed Wendy Vogt (Spikevax), 00:00:00 - Ext ernal Mrna-lnp, Brenden Protein, Pf Covid-19 Vaccine 2021-03-29 Completed Wendy S eybold Moderna (Spikevax), 00:00:00 - Ext ernal Mrna-lnp, Brenden Protein, Pf Covid-19 Vaccine 2021-03-01 Completed Wendy desir Moderna (Spikevax), 00:00:00 - Ext ernal Mrna-lnp, Brenden Protein, Pf Covid-19 Vaccine 2021-03-01 Completed Wendy desir Moderna (Spikevax), 00:00:00 - Ext ernal Mrna-lnp, Brenden Protein, Pf Covid-19 Vaccine Unknown Completed Wendy desir Moderna (Spikevax), - Ext ernal Mrna-lnp, Brenden Protein, Pf Covid-19 Vaccine Unknown Completed Wendy Abdula (Spikevax), - Ext ernal Mrna-lnp, Brenden Protein, Pf Vital Signs Vital Name Observation Time Observation Value Comments Source Body weight 2023-06-18 20:08:00 111.131 kg Wendy Rodriguez thang - External BMI 2023-06-18 20:08:00 32.32 kg/m2 Wendy Effie thang - External Systolic blood 2023-06-18 19:58:00 128 mm[Hg] Wendy Kwon - pressure External Diastolic blood 2023-06-18 19:58:00 77 mm[Hg] Zara Kwon - pressure External Heart rate 2023-06-18 19:58:00 84 /min Wendy S thang - External Body temperature 2023-06-18 19:58:00 36.39 Magdalena Elissa ey Doyle - External Respiratory rate 2023-06-18 19:58:00 15 /min Elissa Kwon - External Body height 2023-06-18 19:58:00 185.4 cm Wendy Effie thang - External Oxygen saturation in 2023-06-18 19:58:00 99 /min Wendy Kwon - Arterial blood by External Pulse oximetry Systolic blood 2023-04-02 20:22:00 122 mm[Hg] Wendy Kwon - pressure External Diastolic blood 2023-04-02 20:22:00 76 mm[Hg] Zara Kwon - pressure External Heart rate 2023-04-02 20:22:00 81 /min Wendy Effie thang - External Body temperature 2023-04-02 20:22:00 37.11 Magdalena Elissa ey Seybold - External Respiratory rate 2023-04-02 20:22:00 14 /min Elissa ey Seybold - External Body height 2023-04-02 20:22:00 185.4 cm Wendy S eybold - External Body weight 2023-04-02 20:22:00 112.038 kg Wendy S eybold - External BMI 2023-04-02 20:22:00 32.59 kg/m2 Wendy S eybold - External Oxygen saturation in 2023-04-02 20:22:00 99 /min Wendy Seybold - Arterial blood by External Pulse oximetry Systolic blood 2023-03-04 20:25:00 112 mm[Hg] Wendy Seybold - pressure External Diastolic blood 2023-03-04 20:25:00 75 mm[Hg] Shashise y Seybold - pressure External Heart rate 2023-03-04 20:25:00 88 /min Wendy S eybold - External Body temperature 2023-03-04 20:25:00 36.61 Magdalena Elissa ey Seybold - External Respiratory rate 2023-03-04 20:25:00 19 /min Elissa ey Seybold - External Body height 2023-03-04 20:25:00 185.4 cm Wendy Rodriguez eybold - External Body weight 2023-03-04 20:25:00 114.76 kg Wendy Rodriguez eybold - External BMI 2023-03-04 20:25:00 33.38 kg/m2 Wendy S eybold - External Oxygen saturation in 2023-03-04 20:25:00 97 /min Wendy Seybold - Arterial blood by External Pulse oximetry Systolic blood 2023-01-22 19:15:00 108 mm[Hg] Wendy Seybold - pressure External Diastolic blood 2023-01-22 19:15:00 72 mm[Hg] Kelse y Seybold - pressure External Heart rate 2023-01-22 19:15:00 82 /min Wendy S eybold - External Body temperature 2023-01-22 19:15:00 36.39 Magdalena Elissa ey Seybold - External Respiratory rate 2023-01-22 19:15:00 15 /min Elissa guajardo Seybold - External Body height 2023-01-22 19:15:00 185.4 cm Wendy Rodriguez eybold - External Body weight 2023-01-22 19:15:00 105.688 kg Wendy S eybold - External BMI 2023-01-22 19:15:00 30.74 kg/m2 Wendy S eybold - External Systolic blood 2023-01-14 18:49:00 110 mm[Hg] Wendy Seybold - pressure External Diastolic blood 2023-01-14 18:49:00 72 mm[Hg] Zara y Seybold - pressure External Heart rate 2023-01-14 18:49:00 115 /min Wendy Rodriguez eybold - External Body temperature 2023-01-14 18:49:00 36.17 Magdalena Elissa guajardo Seybold - External Respiratory rate 2023-01-14 18:49:00 15 /min Elissa guajardo Seybold - External Body height 2023-01-14 18:49:00 185.4 cm Wendy Rodriguez eybold - External Body weight 2023-01-14 18:49:00 107.502 kg Wendy Rodriguez eybold - External BMI 2023-01-14 18:49:00 31.27 kg/m2 Wendy Rodriguez eybold - External Body weight 2021-06-14 14:27:00 118.389 kg [facility] BMI 2021-06-14 14:27:00 34.44 kg/m2 [facility] Procedures Procedure Date / Time Performed Performing Clinician [facility] e REFERRAL- 2021-07-19 05:01:00 Doctor Unassigned, No [facility] REQUEST/RESPONSE Name [facility] Plan of Care Planned Activity Planned Date Details Comments Source Future Scheduled 2023-07-26 Screening for [facility] Test 13:04:05 malignant neoplasm of colon (procedure) [code = 237651745] Future Scheduled 2023-07-26 Screening for [facility] Test 13:04:05 malignant neoplasm of colon (procedure) [code = 359498925] Future Scheduled 2023-07-26 Screening for [facility] Test 13:04:05 malignant neoplasm of colon (procedure) [code = 821942064] Future Scheduled 2023-07-26 [facility]:05 (#1) [code = COVID-19 VACCINE (#1)] Future Scheduled 2023-07-26 Screening for [facility] Test 13:04:05 malignant neoplasm of colon (procedure) [code = 380069841] Future Scheduled 2023-07-26 Screening for [facility] Test 13:04:05 malignant neoplasm of colon (procedure) [code = 305499764] Future Scheduled 2023-07-26 SHINGLES VACCINES [facility] Test 13:04:05 (1 of 2) [code = SHINGLES VACCINES (1 of 2)] Future Scheduled 2023-07-26 INFLUENZA VACCINE [facility] Test 13:04:05 (#1) [code = INFLUENZA VACCINE (#1)] Future Scheduled 2023-07-26 RSV VACCINES > 60 [facility] Test 13:04:05 YR (1 - 1-dose 60+ series) [code = RSV VACCINES > 60 YR (1 - 1-dose 60+ series)] Encounters Start End Encounter Admission Attending Care Care Encounter Source Date/Time Date/Time Type Type Clinicians Facility Department ID 2024-07-07 2024-07-07 Outpatient WENDY VILLAREAL [id number] Wendy 14:20:00 14:20:00 JUNIE Seybol d 2023-09-17 2023-09-17 Outpatient WENDY YUAN [id number] Wendy 15:30:00 15:30:00 RINKU Seybol d 2023-07-09 2023-07-09 Outpatient WENDY VILLAREAL [id number] Wendy 14:40:00 14:40:00 JUNIE Seybol d 2023-07-08 2023-07-08 Outpatient WENDY YUAN [id number] Wendy 00:00:00 00:00:00 RINKU Seybol d 2023-07-06 2023-07-06 Outpatient WENDY YUAN [id number] Wendy 00:00:00 00:00:00 RINKU Seybol d 2023-07-03 2023-07-03 Outpatient WENDY BEASLEY [id number] Wendy 00:00:00 00:00:00 SASKIA Seybol d 2023-06-18 2023-06-18 Outpatient PREZAEffie, WENDY GLASER [id number] Wendy 15:00:00 15:00:00 RINKU Seybol d 2023-06-04 2023-06-04 Outpatient PREZAS, WENDY GLASER [id number] Wendy 09:00:00 09:00:00 RINKU Seybol d 2023-05-27 2023-05-27 Outpatient LAB90 WENDY GLASER [id number] Wendy 12:10:00 12:10:00 Seybol d 2023-05-21 2023-05-21 Outpatient OZZY, WENDY GLASER [id number] Wendy 14:30:00 14:30:00 MUMTAZ Seybol d 2023-05-09 2023-05-09 Outpatient DENISE, WENDY GLASER [id number] Wendy 14:15:00 14:15:00 JALAJA Seybol d 2023-04-25 2023-04-25 Outpatient PREZAEffie, WENDY GLASER [id number] Wendy 00:00:00 00:00:00 RINKU Seybol d 2023-04-25 2023-04-25 Outpatient PREZASWENDY [id number] Wendy 00:00:00 00:00:00 RINKU Seybol d 2023-04-12 2023-04-12 Outpatient ARNOLD, WENDY GLASER [id number] Wendy 13:30:00 13:30:00 RAFA Seybol d 2023-04-11 2023-04-11 Outpatient PREZAWENDY Rodriguez [id number] Wendy 00:00:00 00:00:00 RINKU Seybol d 2023-04-02 2023-04-02 Outpatient PREZASWENDY [id number] Wendy 15:30:00 15:30:00 RINKU Seybol d 2023-04-01 2023-04-01 Outpatient PREZASWENDY [id number] Wendy 00:00:00 00:00:00 RINKU Seybol d 2023-03-14 2023-03-14 Outpatient PREZAWENDY Rodriguez [id number] Wendy 00:00:00 00:00:00 RINKU Seybol d 2023-03-05 2023-03-05 Outpatient WENDY YUAN [id number] Wendy 00:00:00 00:00:00 RINKU Seybol d 2023-03-05 2023-03-05 Outpatient PREWENDY RODARTE [id number] Wendy 00:00:00 00:00:00 RINKU Seybol d 2023-03-04 2023-03-04 Outpatient WENDY YUAN [id number] Wendy 15:45:00 15:45:00 RINKU Seybol d 2023-02-27 2023-02-27 Outpatient PREWENDY RODARTE [id number] Wendy 00:00:00 00:00:00 RINKU Seybol d 2023-02-07 2023-02-07 Outpatient WENDY GIRARD [id number] Wendy 14:00:00 14:00:00 NATALIO Seybol d 2023-02-07 2023-02-07 Outpatient WENDY GLASER [id number] Wendy 13:40:00 13:40:00 Seybol d 2023-01-29 2023-01-29 Outpatient WENDY GIRARD [id number] Wendy 00:00:00 00:00:00 NATALIO Seybol d 2023-01-24 2023-01-24 Outpatient WENDY BEASLEY [id number] Wendy 00:00:00 00:00:00 SASKIA Seybol d 2023-01-22 2023-01-22 Outpatient WENDY BEASLEY [id number] Wendy 14:30:00 14:30:00 SASKIA Seybol d 2023-01-16 2023-01-16 Outpatient WENDY BEASLEY [id number] Wendy 00:00:00 00:00:00 SASKIA Seybol d 2023-01-16 2023-01-16 Outpatient WENDY BEASLEY [id number] Wendy 00:00:00 00:00:00 SASKIA Seybol d 2023-01-15 2023-01-15 Outpatient LAB90 WENDY GLASER [id number] Wendy 11:35:00 11:35:00 Seybol d 2023-01-14 2023-01-14 Outpatient LAB90 WENDY WENDY [id number] Wendy 15:00:00 15:00:00 Seybol d 2023-01-14 2023-01-14 Outpatient WENDY BEASLEY WENDY [id number] Wendy 13:45:00 13:45:00 SASKIA Seybol d 2022-12-31 2022-12-31 Outpatient Tomek_T [facility] [id number] [place] 00:00:00 00:00:00 [facility] 2021-07-19 2021-07-19 Orders Doctor BENITO [id number] Univers 00:00:00 00:00:00 Only Unassigned, [place] 350.1.13.10 ity of [facility] [id number] M[place] as [id number] [facility] [address] Branch 2021-06-14 2021-06-14 Office Gastroenterology, [facility]DC[facility] [id number] Univers 07:57:17 15:17:26 Visit AdrienneOmid magana [facility] 350.1.13.1 0 [id number] [phone] [facility] [address] Branch 2019-12-10 2019-12-10 Emergency X KAMERON MARQUES ERT [id number] Univers 17:02:12 19:00:00 ADRIA bolaños of [facility] Results This patient has no known results.
[2023-08-04 11:22] LABS: Absolute Lymphocytes (CBC) 0.8 K/uL (0.7-4.9); Hematocrit 47.6 % (39.6-49.0); Lymphocytes % 10.3 % (15.3-44.8); MCV 92.1 fL (80-100); MPV 8.1 fL (7.6-11.3); Platelets 227 thou/uL (152-406); RBC Red Blood Cell Count 5.17 M/uL (4.33-5.43)
[2023-08-04 11:34] LABS: Protime INR 1.01
[2023-08-04 11:53] LABS: Albumin 3.5 g/dL (3.4-5.0); Bilirubin Direct 0.2 mg/dL (0-0.2); Bilirubin Indirect, Calculated 0.5 mg/dL (0.2-0.8); Bilirubin Total 0.7 mg/dL (0.2-1.0); Magnesium 1.3 mg/dL (1.6-2.4); Potassium 3.7 mEq/L (3.5-5.1); Protein, Total 7.1 g/dL (6.4-8.2); Troponin High Sensitivity 5.5 pg/mL (<58.9)
[2023-08-04] MEDS ORDERED: ONDANSETRON 4 MG/2 ML VIAL ONE (12:59)
[2023-08-04] MEDS ORDERED: NA CHLORIDE 0.9% 1,000 ML ONE (12:59)
--- NOTE | 2023-08-04 13:25 | RAD REPORT ---
EXAM DESCRIPTION: CT - Head Brain Wo Cont - 08/04/2023 1:14 pm CLINICAL HISTORY: Dizziness;Weakness COMPARISON: Head angio dated 08/04/2023 TECHNIQUE: All CT scans are performed using dose optimization technique as appropriate and may inclu de automated exposure control or mA/KV adjustment according to patient size. FINDINGS: No intracranial hemorrhage, hydrocephalus or extra-axial fluid collection.No areas of brai n edema or evidence of midline shift. The paranasal sinuses and mastoids are clear. The calvarium is intact. IMPRESSION: No acute intracranial abnormality.
--- NOTE | 2023-08-04 13:32 | RAD REPORT ---
EXAM DESCRIPTION: CT - Neck Angio - 08/04/2023 1:19 pm CLINICAL HISTORY: unsteady, dizziness COMPARISON: Head Brain Wo Cont dated 08/04/2023 TECHNIQUE: CT angiography of the neck vessels was performed with maximum intensity reformatted image s. CAROTID STENOSIS REFERENCE USING NASCET CRITERIA: Mild - <50% stenosis. Moderate - 50-69% stenosis. Severe - 70-94% stenosis. Near occlusion - 95-99% stenosis. Occluded - 100% stenosis. All CT scans are performed using dose optimization technique as appropriate and may include automated exposure control or mA/KV adjustment according to patient size. FINDINGS: A left aortic arch is identified with normal three vessel configuration of the great vesse ls. No significant flow abnormality is seen of the common carotid bilaterally. No significant stenosis is identified involving the cervical segments of both internal carotid arteri es. Normal flow is seen within both vertebral arteries. Note that there is streak artifact which limits v isualization of short segments of the vertebral arteries. IMPRESSION: No significant flow abnormality of the neck vessels is identified.
--- NOTE | 2023-08-04 13:34 | RAD REPORT ---
EXAM DESCRIPTION: CT - Head angio - 08/04/2023 1:19 pm CLINICAL HISTORY: DIZZINESS COMPARISON: Ct Stroke Brain Wo Cont dated 09/21/2018 TECHNIQUE: CT angiography of the head was performed with maximum intensity reformatted images. 3D ma ximum intensity pixel (MIP) reconstructions were created All CT scans are performed using dose optimization technique as appropriate and may include automated exposure control or mA/KV adjustment according to patient size. FINDINGS: Anterior circulation: No aneurysm or large vessel occlusion. No hemodynamically significant stenosis. No arteriovenous malf ormation identified. Posterior circulation: No aneurysm or large vessel occlusion. No hemodynamically significant stenosis. No arteriovenous malf ormation identified. IMPRESSION: No significant flow abnormality is detected.
[2023-08-04 14:08] LABS: Specific Gravity 1.012 (1.005-1.030); Urine Bilirubin NEGATIVE (Negative); Urine Blood Negative (Negative); Urine Clarity Clear (Clear); Urine Color Light-Yellow (Yellow); Urine Glucose NEGATIVE (Negative); Urine Protein NEGATIVE (Negative); Urine Urobilinogen Normal (Normal)
--- NOTE | 2023-08-04 14:57 | ER ---
Nurse's Notes [facility] Name: Gustavo Huffman Age: 53 yrs Sex: Male : 1970 Arrival Date: 08/04/2023 Time: 10:49 Bed 20 Private MD: Diagnosis: Nausea with vomiting, unspecified;Diarrhea, unspecified;Weakness Presentation: 08/04 11:06 Chief complaint: Patient states: N/V/D since last night. Weak and dizzy today. No fever hb or pain. Coronavirus screen: Vaccine status: Patient reports receiving the 2nd dose of the covid vaccine. Client denies travel out of the [place] in the last 14 days. diarrhea, fatigue, nausea, vomiting. Client presents with at least one sign or symptom that may indicate coronavirus-19. Standard/surgical mask placed on the client. Ebola Screen: Patient denies travel to an Ebola-affected area in the 21 days before illness onset. Initial Sepsis Screen: Does the patient meet any 2 criteria? No. Patient's initial sepsis screen is negative. Does the patient have a suspected source of infection? Yes: Acute abdominal pain. Risk Assessment: Do you want to hurt yourself or someone else? Patient reports no desire to harm self or others. Onset of symptoms was August 03, 2023. 11:06 Method Of Arrival: Ambulatory hb 11:06 Acuity: DAVID 3 hb Triage Assessment: 11:07 General: Appears uncomfortable, Behavior is calm, cooperative, appropriate for age. hb General: Reports feeling ill for fatigue for. Pain: Denies pain. Neuro: Reports dizziness, weakness. Cardiovascular: No deficits noted. Respiratory: No deficits noted. GI: Reports diarrhea, nausea, vomiting. Historical: - Allergies: 11:05 No Known Allergies; hb - PMHx: 11:05 Hypertension; Diabetes - IDDM; [place]; hb - PSHx: 11:05 None; hb - Immunization history:: Adult Immunizations up to date. - Social history:: Smoking status: Patient reports the use of cigarette tobacco products, cigars. Screenin:08 [facility] ED Fall Risk Assessment (Adult) Impaired Gait Yes (1 pt) Mobility Assist hb Device Used Yes (1 pt) Score/Fall Risk Level 0 - 2 = Low Risk Oriented to surroundings, Maintained a safe environment, Educated pt \T\ family on fall prevention, incl call for assistance when getting out of bed, Hourly rounding (assess needs \T\ fall precautionary measures) done. Abuse screen: Denies threats or abuse. Nutritional screening: No deficits noted. Tuberculosis screening: No symptoms or risk factors identified. Assessment: 12:43 General: Appears in no apparent distress. Behavior is calm, cooperative, appropriate cp4 for age. GI: Abdomen is round non-distended, Reports nausea, vomiting. 13:25 Reassessment: Patient back from radiology. cp4 Vital Signs: 11:06 BP 119 / 83 Supine; Pulse 95; Resp 18; Temp 98.4; Pulse Ox 100% ; Weight 111.13 kg; hb Height 6 ft. 1 in. ; Pain 0/10; 11:33 BP 119 / 83 Supine; Pulse Ox 100% ; sm8 11:33 BP 120 / 83 Sitting; Pulse Ox 100% ; sm8 11:33 BP 132 / 90 Standing; Pulse Ox 100% ; sm8 12:49 BP 118 / 82; Pulse 81; Resp 20; Pulse Ox 98% ; cp4 14:00 BP 118 / 75; Pulse 85; Resp 18; Pulse Ox 100% ; cp4 15:00 BP 116 / 72; Pulse 80; Resp 18; Pulse Ox 99% ; cp4 11:06 Body Mass Index 32.32 (111.13 kg, 185.42 cm) hb 11:06 Pain Scale: Adult hb ED Course: 10:54 Patient arrived in ED. ts1 10:55 [facility]C [facility] kb 10:55 Roberto Carlos Stahl MD is Attending Physician. kb 11:05 Mayuri Atkinson RN is Primary Nurse. hb 11:05 Arm band placed on Patient placed in an exam room, on a stretcher. hb 11:07 Triage completed. hb 11:08 Patient has correct armband on for positive identification. Bed in low position. Call hb light in reach. Client placed on continuous cardiac and pulse oximetry monitoring. NIBP monitoring applied. 11:32 EKG done, by ED staff. Inserted saline lock: 22 gauge in right forearm, using aseptic sm8 technique. Blood collected. 12:16 Primary Nurse role handed off by Mayuri Atkinson, RN cp4 12:16 Judith Todd is Primary Nurse. cp4 12:43 No provider procedures requiring assistance completed. cp4 13:03 Patient moved to radiology via stretcher. cp4 13:15 CT Head Brain wo Cont In Process Unspecified. EDMS 13:21 CT Head Angio In Process Unspecified. EDMS 13:21 CT Neck Angio In Process Unspecified. EDMS 15:19 Provided Education on: nausea and vomiting. cp4 15:19 intact, bleeding controlled, No redness/swelling at site. Pressure dressing applied. cp4 Administered Medications: 12:49 Drug: NS 0.9% IV 1000 ml IV at 1000 ml once Route: IV; Rate: 1000 ml; Site: right cp4 antecubital; 12:49 Drug: Ondansetron IVP 4 mg IVP once; over 2 minutes Route: IVP; Site: right antecubital;cp4 Medication: 11:08 VIS not applicable for this client. hb Outcome: 14:56 Discharge ordered by MD. kb 15:19 Discharged to home ambulatory, cp4 15:19 Condition: stable 15:19 Discharge instructions given to patient, Instructed on discharge instructions, follow up and referral plans. medication usage, Demonstrated understanding of instructions, follow-up care, medications, Prescriptions given X 1, 15:21 Patient left the ED. cp4 Signatures: Dispatcher [employer] EDMS Kenzie Garcia, GLOBAL DIRECTOR [employer]-C GLOBAL DIRECTOR [employer] CH[employer]-Ckb Mayuri Atkinson, RN RN Erica Pierson PAS PAS ts1 June Lorenz sm8 Judith Todd cp4
--- NOTE | 2023-08-04 14:57 | EDPHYS ---
Physician Documentation [facility] Name: Gustavo Huffman Age: 53 yrs Sex: Male : 1970 Arrival Date: 08/04/2023 Time: 10:49 Bed 20 Private MD: ED Physician Roberto Carlos Stahl HPI: 08/04 18:52 This 53 yrs old Black Male presents to ER via Ambulatory with complaints of General kb Weakness, Nausea/Vomiting. 18:52 Patient reports he had nausea, vomiting and diarrhea throughout the night, woke up with kb dizziness and generalized weakness. Denies fever or abdominal pain.. Historical: - Allergies: 11:05 No Known Allergies; hb - PMHx: 11:05 Hypertension; Diabetes - IDDM; [place]; hb - PSHx: 11:05 None; hb - Immunization history:: Adult Immunizations up to date. - Social history:: Smoking status: Patient reports the use of cigarette tobacco products, cigars. ROS: 18:52 Constitutional: Negative for fever, chills, and weight loss, kb 18:52 Abdomen/GI: Positive for nausea, vomiting, and diarrhea, Negative for abdominal pain, 18:52 Neuro: Positive for dizziness, weakness, 18:52 All other systems are negative, Exam: 19:00 Constitutional: This is a well developed, well nourished patient who is awake, alert, kb and in no acute distress. Head/Face: Normocephalic, atraumatic. ENT: Moist Mucous membranes Cardiovascular: Regular rate Respiratory: Respirations even and unlabored. No increased work of breathing. Talking in full sentences Abdomen/GI: Soft, non-tender. No distention Skin: Warm, dry with normal turgor. Normal color. MS/ Extremity: Pulses equal, no cyanosis. Neurovascular intact. Full, normal range of motion. Neuro: Awake and alert, GCS 15, oriented to person, place, time, and situation. Moves all extremities. Normal gait. Vital Signs: 11:06 BP 119 / 83 Supine; Pulse 95; Resp 18; Temp 98.4; Pulse Ox 100% ; Weight 111.13 kg; hb Height 6 ft. 1 in. ; Pain 0/10; 11:33 BP 119 / 83 Supine; Pulse Ox 100% ; sm8 11:33 BP 120 / 83 Sitting; Pulse Ox 100% ; sm8 11:33 BP 132 / 90 Standing; Pulse Ox 100% ; sm8 12:49 BP 118 / 82; Pulse 81; Resp 20; Pulse Ox 98% ; cp4 14:00 BP 118 / 75; Pulse 85; Resp 18; Pulse Ox 100% ; cp4 15:00 BP 116 / 72; Pulse 80; Resp 18; Pulse Ox 99% ; cp4 11:06 Body Mass Index 32.32 (111.13 kg, 185.42 cm) hb 11:06 Pain Scale: Adult hb MDM: 10:55 Patient medically screened. kb 19:00 Differential diagnosis: viral gastroenteritis, Dehydration syncope. Data reviewed: kb vital signs, nurses notes. Consideration of Admission/Observation Escalation of care including admission/observation considered. Admission considered for weakness and dizziness but patient is feeling better after treatment. Ambulating with steady. Counseling: I had a detailed discussion with the patient and/or guardian regarding the historical points, exam findings, and any diagnostic results supporting the discharge/admit diagnosis, lab results, radiology results, the need for outpatient follow up, a family practitioner, to return to the emergency department if symptoms worsen or persist or if there are any questions or concerns that arise at home. 08/04 11:04 Order name: Basic Metabolic Panel; Complete Time: 11:58 kb 08/04 11:04 Order name: CBC with Diff; Complete Time: 11:35 kb 08/04 11:04 Order name: Hepatic Function; Complete Time: 11:58 kb 08/04 11:04 Order name: Magnesium; Complete Time: 11:58 kb 08/04 11:04 Order name: Protime (+inr); Complete Time: 11:35 kb 08/04 11:04 Order name: Ptt, Activated; Complete Time: 11:35 kb 08/04 11:04 Order name: Troponin High Sensitivity; Complete Time: 11:58 kb 08/04 11:04 Order name: Urinalysis w/ reflexes; Complete Time: 14:11 kb 08/04 12:42 Order name: CT Head Brain wo Cont; Complete Time: 13:26 kb 08/04 12:42 Order name: CT Head Angio; Complete Time: 13:35 kb 08/04 12:42 Order name: CT Neck Angio; Complete Time: 13:35 kb 08/04 11:04 Order name: EKG; Complete Time: 11:05 kb 08/04 11:04 Order name: Cardiac monitoring; Complete Time: 11:25 kb 08/04 11:04 Order name: EKG - Nurse/Tech; Complete Time: 11:25 kb 08/04 11:04 Order name: IV Saline Lock; Complete Time: 11:25 kb 08/04 11:04 Order name: Labs collected and sent; Complete Time: 11:25 kb 08/04 11:04 Order name: NPO; Complete Time: 11:09 kb 08/04 11:04 Order name: O2 Per Protocol; Complete Time: 11: kb 08/04 11:04 Order name: O2 Sat Monitoring; Complete Time: 11:08 kb 08/04 11:04 Order name: Orthostatics; Complete Time: 11:09 kb Administered Medications: 12:49 Drug: NS 0.9% IV 1000 ml IV at 1000 ml once Route: IV; Rate: 1000 ml; Site: right cp4 antecubital; 12:49 Drug: Ondansetron IVP 4 mg IVP once; over 2 minutes Route: IVP; Site: right antecubital;cp4 Disposition: 08/05 10:00 Co-signature as Attending Physician, Roberto Carlos Stahl MD I reviewed the patient's care rn provided by the Advanced Practice Provider and agree with the diagnosis and treatment plan. Disposition Summary: 08/04/23 14:56 Discharge Ordered Notes: Location: Home kb Condition: Stable kb Diagnosis - Nausea with vomiting, unspecified kb - Diarrhea, unspecified kb - Weakness kb Followup: kb - With: Emergency Department - When: As needed - Reason: Worsening of condition Followup: kb - With: Private Physician - When: 2 - 3 days - Reason: Recheck today's complaints, Continuance of care, Re-evaluation by your physician Discharge Instructions: - Discharge Summary Sheet kb - Food Choices to Help Relieve Diarrhea, Pediatric kb - Nausea and Vomiting, Adult, [id number] kb - Weakness, [id number] kb Forms: - Medication Reconciliation Form kb - Thank You Letter kb - Antibiotic Education kb - Prescription Opioid Use kb - Patient Portal Instructions kb - Leadership Thank You Letter kb Prescriptions: - ondansetron 4 mg Oral Tablet,disintegrating - take 1 tablet ORAL route every 6 hours As needed; 12 tablet; Refills: 0, kb Product Selection Permitted Signatures: Dispatcher [employer] EDKenzie Campos FNP-C FNP-Ckb Nieto, Roberto Carlos, MD MD rn Mayuri Atkinson RN RN Judith Jenkins cpDemi
--- NOTE | 2023-08-05 18:08 | EKG ---
Test Date: 2023-08-04 Test Time: 11:26:43 Fax Machine Repairer: FERDINAND MEASUREMENT RESULTS: Intervals: Rate: 87 [place]: 158 QRSD: 100 QT: 354 QTc: 425 [place]: P: 71 [place]: 158 QRS: 88 T: 42 INTERPRETIVE STATEMENTS: Normal sinus rhythm Normal ECG Compared to ECG 09/21/2018 02:18:39 No significant changes Electronically Signed On 08-05-23 18:05:39 CDT by Dirk Schaefer
== END 2023-08-04 15:21 | disposition home or self-care (01) ==
LOC: ER 10:49
DX: R11.2 Nausea with vomiting, unspecified (principal); R19.7 Diarrhea, unspecified; R53.1 Weakness; I10 Essential (primary) hypertension; F17.210 Nicotine dependence, cigarettes, uncomplicated
CPT/HCPCS: 93005; 85025; 80048; 36415; 83735; 85610; 80076; 85730; 81003; 84484; 70450; 70496; 70498; 96374; 99285; Q9967; J2405; J7030

== ENCOUNTER → 2023-10-25 | Emergency (ER) | payer OTHER ==
[~2023-10-25] MED LIST: HYDROCODONE/APAP 5/325 MG TAB ONE
--- NOTE | 2023-10-25 02:39 | ER ---
Nurse's Notes [facility] Name: Gustavo Huffman Age: 53 yrs Sex: Male : 1970 Arrival Date: 10/25/2023 Time: 00:13 Bed 18 Private MD: Diagnosis: Calcaneal spur, left foot;Pain in left foot Presentation: 10/25 00:47 Chief complaint: Patient states: 1 week of foot and ankle swelling/pain; left ankle km8 noted to be swollen; denies any injury/trauma. Coronavirus screen: Client denies travel out of the [place] in the last 14 days. Ebola Screen: No symptoms or risks identified at this time. Initial Sepsis Screen: Does the patient meet any 2 criteria? No. Patient's initial sepsis screen is negative. Does the patient have a suspected source of infection? No. Patient's initial sepsis screen is negative. Risk Assessment: Do you want to hurt yourself or someone else? Patient reports no desire to harm self or others. Onset of symptoms was October 18, 2023. 00:47 Method Of Arrival: Ambulatory km8 00:47 Acuity: DAVID 4 km8 Triage Assessment: 00:50 General: Appears in no apparent distress. comfortable, Behavior is calm, cooperative, km8 appropriate for age. Pain: Complains of pain in right leg and left leg Pain currently is 6 out of 10 on a pain scale. EENT: No signs and/or symptoms were reported regarding the EENT system. Neuro: Level of Consciousness is awake, alert, obeys commands, Oriented to person, place, time, situation. Cardiovascular: Denies chest pain, Capillary refill < 3 seconds Patient's skin is warm and dry. Respiratory: Airway is patent Respiratory effort is even, unlabored, Respiratory pattern is regular, symmetrical. GI: No signs and/or symptoms were reported involving the gastrointestinal system. : No signs and/or symptoms were reported regarding the genitourinary system. Derm: Skin is intact, is healthy with good turgor, Skin is dry, Skin is pink, warm \T\ dry. normal, Skin temperature is warm. Musculoskeletal: Circulation, motion, and sensation intact. Range of motion: intact in all extremities, Swelling present in left leg Reports pain in right leg and left leg. Historical: - Allergies: 00:50 No Known Allergies; km8 - PMHx: 00:50 Diabetes - IDDM; Hypertension; [place]; km8 - PSHx: 00:50 None; km8 - Immunization history:: Client reports receiving the 2nd dose of the Covid vaccine, Flu vaccine is not up to date. - Social history:: Smoking status: Patient reports the use of cigarette tobacco products, cigars, Patient uses alcohol, on a daily basis. Patient/guardian denies using street drugs. - Family history:: not pertinent. Vital Signs: 00:47 BP 148 / 88; Pulse 93; Resp 16; Temp 98.2(O); Pulse Ox 97% on R/A; Weight 111.13 kg km8 (R); Height 6 ft. 1 in. (R); Pain 610; 00:47 Body Mass Index 32.32 (111.13 kg, 185.42 cm) km8 00:47 Pain Scale: Adult [facility] ED Course: 00:19 Patient arrived in ED. jj6 00:49 Triage completed. km8 00:50 Arm band placed on right wrist. km8 00:57 Eligio Pope MD is Attending Physician. rt 01:19 Alida Merrill, RN is Primary Nurse. nw1 01:26 Foot Left 3 View XRAY In Process Unspecified. EDMS Administered Medications: 01:21 Drug: HYDROcodone-acetaminophen PO 5 mg-325 mg 1 tabs PO once Route: PO; jb4 Outcome: 02:38 Discharge ordered by . rt 02:46 Discharged to home ambulatory, nw1 02:46 Condition: stable 02:46 Discharge instructions given to patient, Instructed on discharge instructions, follow up and referral plans. medication usage, Demonstrated understanding of instructions, follow-up care, medications, Prescriptions given X 1, 02:46 Patient left the ED. nw1 Signatures: Dispatcher [employer] EDMS Shane Lau RN RN jb4 Melba Jenkins jj6 Eligio Pope MD MD rt Milady Hinton RN RN km8 Alida Merrill, RN RN nw1
--- NOTE | 2023-10-25 02:39 | EDPHYS ---
Physician Documentation [facility] Name: Gustavo Huffman Age: 53 yrs Sex: Male : 1970 Arrival Date: 10/25/2023 Time: 00:13 Bed 18 Private MD: ED Physician Eligio Pope HPI: 10/25 04:24 This 53 yrs old Black Male presents to ER via Ambulatory with complaints of Swelling of rt Lower Extremity, Foot Pain, REDNESS/DISCOLORATION ON FOOT. 04:24 Patient reports pain and swelling to his left foot, worse when he walks around. Patient rt states that the pain is somewhat improved, was told to get an x-ray of his primary care. Denies discrete injury. [place] fever, chills, proximal pain. Symptoms are mild in severity, aching nature, nonradiating, no other aggravating or elevating factors.. Historical: - Allergies: 00:50 No Known Allergies; km8 - PMHx: 00:50 Diabetes - IDDM; Hypertension; [place]; km8 - PSHx: 00:50 None; km8 - Immunization history:: Client reports receiving the 2nd dose of the Covid vaccine, Flu vaccine is not up to date. - Social history:: Smoking status: Patient reports the use of cigarette tobacco products, cigars, Patient uses alcohol, on a daily basis. Patient/guardian denies using street drugs. - Family history:: not pertinent. ROS: 04:24 Constitutional: Negative for fever, chills, and weight loss, Cardiovascular: Negative rt for chest pain, palpitations, and edema, Respiratory: Negative for shortness of breath, cough, wheezing, and pleuritic chest pain, Abdomen/GI: Negative for abdominal pain, nausea, vomiting, diarrhea, and constipation, Neuro: Negative for headache, weakness, numbness, tingling, and seizure, 04:24 MS/extremity: Positive for pain, swelling, Exam: 04:24 Constitutional: This is a well developed, well nourished patient who is awake, alert, rt and in no acute distress. Head/Face: Normocephalic, atraumatic. Chest/axilla: Normal chest wall appearance and motion. Nontender with no deformity. No lesions are appreciated. Cardiovascular: Regular rate and rhythm with a normal S1 and S2. No gallops, murmurs, or rubs. Normal PMI, no JVD. No pulse deficits. Respiratory: Lungs have equal breath sounds bilaterally, clear to auscultation and percussion. No rales, rhonchi or wheezes noted. No increased work of breathing, no retractions or nasal flaring. Abdomen/GI: Soft, non-tender, with normal bowel sounds. No distension or tympany. No guarding or rebound. No evidence of tenderness throughout. Neuro: Awake and alert, GCS 15, oriented to person, place, time, and situation. Cranial nerves II-XII grossly intact. Motor strength 5/5 in all extremities. Sensory grossly intact. Cerebellar exam normal. Normal gait. Psych: Awake, alert, with orientation to person, place and time. Behavior, mood, and affect are within normal limits. 04:24 Musculoskeletal/extremity: No appreciable swelling to the left foot, pulses, motor, sensation are intact. No deformities noted, no ankle tenderness. No proximal swelling, calf tenderness. Minimal tenderness noted to the midfoot. Vital Signs: 00:47 BP 148 / 88; Pulse 93; Resp 16; Temp 98.2(O); Pulse Ox 97% on R/A; Weight 111.13 kg km8 (R); Height 6 ft. 1 in. (R); Pain 6/10; 00:47 Body Mass Index 32.32 (111.13 kg, 185.42 cm) km 00:47 Pain Scale: Adult km8 MDM: 00:58 Patient medically screened. rt 04:24 Differential diagnosis: Tendinitis, heel spur, plantar fasciitis, cellulitis. Data rt reviewed: vital signs, nurses notes, radiologic studies. I considered the following discharge prescriptions or medication management in the emergency department Medications were administered in the Emergency Department. See MAR. Independent interpretation of the following test(s) in the Emergency Department X-Ray: My interpretation is No fracture seen on interpretation of x-ray images. Test considered but Not performed: Other Details Patient has no signs of a cellulitis on physical exam. Signs and symptoms not consistent with a DVT. Do not believe that labs, ultrasound are indicated at this time. Counseling: I had a detailed discussion with the patient and/or guardian regarding the historical points, exam findings, and any diagnostic results supporting the discharge/admit diagnosis, radiology results, the need for outpatient follow up, to return to the emergency department if symptoms worsen or persist or if there are any questions or concerns that arise at home. Response to treatment: the patient's symptoms have markedly improved after treatment. 10/25 01:05 Order name: Foot Left 3 View XRAY rt Administered Medications: 01:21 Drug: HYDROcodone-acetaminophen PO 5 mg-325 mg 1 tabs PO once Route: PO; jb4 Disposition Summary: 10/25/23 02:38 Discharge Ordered Notes: Location: Home rt Problem: new rt Symptoms: have improved rt Condition: Stable rt Diagnosis - Calcaneal spur, left foot rt - Pain in left foot rt Followup: rt - With: Private Physician - When: 2 - 3 days - Reason: Discharge Instructions: - Discharge Summary Sheet rt - Heel Spur rt - Foot Pain rt Forms: - Medication Reconciliation Form rt - Thank You Letter rt - Antibiotic Education rt - Prescription Opioid Use rt - Patient Portal Instructions rt - Leadership Thank You Letter rt Prescriptions: - Tramadol 50 mg Oral Tablet - take 1 tablet ORAL route every 8 hours as needed; 12 tablet; Refills: 0, rt Product Selection Permitted Signatures: Dispatcher [employer] Shane Romeo, RN RN jb4 Eligio Pope MD MD rt Milady Hinton RN RN km8
[2023-10-25 09:04] VITALS: BP 148/88; TEMP 98.2; O2SAT 97
--- NOTE | 2023-10-25 22:04 | RAD REPORT ---
EXAM DESCRIPTION: RAD - Foot Left 3 View - 10/25/2023 1:24 am CLINICAL HISTORY: PAIN COMPARISON: None. TECHNIQUE: XR FOOT 3 OR MORE VIEWS LEFT 10/25/2023 1:05 AM MACHINE FANCY STITCHER FINDINGS: There is no fracture. There are moderate degenerative changes at the first MTP joint. Ther e are degenerative changes throughout the mid foot. Vascular calcifications are present. There is a c alcaneal spur. IMPRESSION: No acute osseous findings. Electronically signed by: Erickson Gregory MD 10/25/2023 01:52 AM MACHINE FANCY STITCHER Due to temporary technical issues with the PACS/Fluency reporting system, reports are being signed by the in house radiologists without review as a courtesy to insure prompt reporting. The interpreting radiologist is fully responsible for the content of the report.
== END ==
LOC: ER 00:13
DX: M77.32 Calcaneal spur, left foot (principal)
CPT/HCPCS: 99283

== ENCOUNTER 2024-04-15 11:14 | Inpatient (IN) | payer OTHER ==
[2024-04-15] MEDS ORDERED: ONDANSETRON 4 MG/2 ML VIAL ONE (11:38)
[2024-04-15] MEDS ORDERED: NA CHLORIDE 0.9% 1,000 ML ONE ×2 (11:38→17:30)
[2024-04-15] MEDS ORDERED: FAMOTIDINE 20 MG/2 ML VIAL IV ONE (11:38)
[2024-04-15 11:45] LABS: Absolute Eosinophils 0.1 K/uL (0-0.5); Absolute Lymphocytes (CBC) 1.6 K/uL (0.7-4.9); Absolute Monocytes 0.6 K/uL (0.1-1.3); Absolute Neutrophil 6.4 K/uL (1.8-8.0); Basophils % 0.6 % (0-1.3); Eosinophils % 0.6 % (0-4.4); Hematocrit 46.2 % (39.6-49.0); Hemoglobin 15.6 g/dL (13.6-17.9); Lymphocytes % 18.4 % (15.3-44.8); MCH 31.4 pg (27.0-35.0); MCHC 33.9 g/dL (32.0-36.0); MCV 92.9 fL (80-100); MPV 9.1 fL (7.6-11.3); Monocytes % 6.5 % (3.3-12.3); Neutrophils % 73.9 % (41.7-73.7); Nucleated Red Blood Cells % 0.1 % (0-0); Platelets 248 thou/uL (152-406); RBC Red Blood Cell Count 4.97 M/uL (4.33-5.43); Red Cell Distribution Width 13.3 % (12.1-15.2)
[2024-04-15] MEDS ORDERED: MORPHINE 4 MG/ML SYR ONE (11:52)
[2024-04-15 12:06] LABS: ALT/SGPT 23 U/L (16-61); Albumin 3.5 g/dL (3.4-5.0); Albumin/Globulin Ratio 0.9 (1.1-1.8); Alkaline Phosphatase 60 U/L (45-117); BUN Blood Urea Nitrogen 13 mg/dL (7-18); Bicarbonate 28 mEq/L (21-32); Bilirubin Total 0.5 mg/dL (0.2-1.0); Glomerular Filtration Rate 69 ml/min (=/>90); Glucose Level 305 mg/dL (74-106); Lipase 271 U/L (13-75); Protein, Total 7.5 g/dL (6.4-8.2); Sodium Level 133 mEq/L (136-145)
[2024-04-15 12:11] LABS: AST/SGOT < 10 U/L (15-37)
--- NOTE | 2024-04-15 12:19 | RAD REPORT ---
EXAM DESCRIPTION: US - Abdomen Exam Limited - 04/15/2024 12:05 pm CLINICAL HISTORY: ABD PAIN COMPARISON: No comparisons FINDINGS: The gallbladder demonstrates no gallstones. No pericholecystic fluid or gallbladder wall t hickening. The common bile duct is normal measuring 4 mm. The liver demonstrates no findings of intrahepatic biliary dilatation. IMPRESSION: Negative for cholelithiasis or acute cholecystitis. No biliary ductal dilatation.
--- NOTE | 2024-04-15 12:42 | RAD REPORT ---
EXAM DESCRIPTION: CTAbdomen Pelvis W Contrast - 04/15/2024 12:30 pm CLINICAL HISTORY: Abdominal pain. ABD PAIN COMPARISON: No comparisons TECHNIQUE: Venous CT imaging of the abdomen and pelvis was performed with 100 ml non-ionic IV contra st. All CT scans are performed using dose optimization technique as appropriate and may include automated exposure control or mA/KV adjustment according to patient size. FINDINGS: 8 mm nodule in the right lung base anteriorly. The liver, spleen, adrenal glands and kidneys are within normal limits. There is a large amount of in flammation in the pancreatic head and neck region. No bowel obstruction, free air, free fluid or abscess. The appendix is normal. No evidence of signi ficant lymphadenopathy. No suspicious bony findings. IMPRESSION: Moderately severe acute pancreatitis pattern. 8 mm nodule right lung base anteriorly. The USPSTF recommends annual screening for lung cancer with low-dose CT (LDCT) in adults aged 50 to 80 years who have a 20 pack-year smoking history and currently smoke or have quit within the past 15 years.
[2024-04-15] MEDS ORDERED: NA CHLORIDE 0.9% 2,000 ML ONE (13:23)
[2024-04-15 13:33] LABS: Specific Gravity > 1.030 (1.005-1.030); Urine Bilirubin NEGATIVE (Negative); Urine Blood Negative (Negative); Urine Clarity Clear (Clear); Urine Color Colorless (Yellow); Urine Glucose 4+ (Over) (Negative); Urine Ketones NEGATIVE (Negative); Urine Microscopic Reflex YN NO UMIC; Urine Nitrite NEGATIVE (Negative); Urine Protein NEGATIVE (Negative); Urine Urobilinogen Normal (Normal)
--- NOTE | 2024-04-15 15:01 | ER ---
Nurse's Notes [facility] Name: Gustavo Huffman Age: 54 yrs Sex: Male : 1970 Arrival Date: 04/15/2024 Time: 11:14 Bed 17 Private MD: Diagnosis: Epigastric abdominal tenderness;Other chronic pancreatitis-ACUTE ALCOHOLIC ;Alcohol abuse Presentation: 04/15 11:23 Chief complaint: ABD PAIN RADIATING TO BACK STARTED AT 0300 TODAY. DENIES N/V. db Coronavirus screen: Client denies travel out of the [place] in the last 14 days. At this time, the client does not indicate any symptoms associated with coronavirus-19. Ebola Screen: Patient negative for fever greater than or equal to 101.5 degrees Fahrenheit, and additional compatible Ebola Virus Disease symptoms Patient denies exposure to infectious person. Patient denies travel to an Ebola-affected area in the 21 days before illness onset. No symptoms or risks identified at this time. Initial Sepsis Screen: Does the patient meet any 2 criteria? No. Patient's initial sepsis screen is negative. Does the patient have a suspected source of infection? No. Patient's initial sepsis screen is negative. Risk Assessment: Do you want to hurt yourself or someone else? Patient reports no desire to harm self or others. Onset of symptoms was April 15, 2024 at 03:00. 11:23 Method Of Arrival: Ambulatory db 11:23 Acuity: DAVID 3 db Triage Assessment: 11:26 General: Appears in no apparent distress. comfortable, Behavior is calm, cooperative. db Pain: Complains of pain in back and abdomen. Neuro: Level of Consciousness is awake, alert, obeys commands, Oriented to person, place, time, situation. Respiratory: Airway is patent Respiratory effort is even, unlabored, Respiratory pattern is regular, symmetrical. GI: Reports upper abdominal pain. Historical: - Allergies: 11:26 No Known Allergies; db - PMHx: 11:26 Diabetes - IDDM; Hypertension; TN; db - Immunization history:: Adult Immunizations unknown. - Infectious Disease History:: Denies. - Social history:: Smoking status: Patient reports the use of cigarette tobacco products, cigars. - Family history:: not pertinent. Screenin:51 [facility] ED Fall Risk Assessment (Adult) History of falling in the last 3 months, mb9 including since admission No falls in past 3 months (0 pts) Confusion or Disorientation No (0 pts) Intoxicated or Sedated No (0 pts) Impaired Gait No (0 pts) Mobility Assist Device Used No (0 pt) Altered Elimination No (0 pt) Score/Fall Risk Level 0 - 2 = Low Risk Oriented to surroundings, Maintained a safe environment, Educated pt \T\ family on fall prevention, incl call for assistance when getting out of bed. Abuse screen: Denies threats or abuse. Nutritional screening: No deficits noted. Tuberculosis screening: No symptoms or risk factors identified. Assessment: 11:49 General: Appears in no apparent distress. Behavior is calm, cooperative. Pain: mb9 Complains of pain in abdomen Pain radiates to back Pain currently is 10 out of 10 on a pain scale. Quality of pain is described as sharp, shooting, stabbing, Pain began suddenly, Is continuous. Neuro: Garcia Agitation-Sedation Scale (RASS): 0 - Alert and Calm Level of Consciousness is awake, alert, obeys commands, Oriented to person, place, time, situation, Appropriate for age. Cardiovascular: Patient's skin is warm and dry. Respiratory: Airway is patent Respiratory effort is even, unlabored, Respiratory pattern is regular, symmetrical. GI: Abdomen is round non-distended, Bowel sounds present X 4 quads. Abd is soft in right upper quadrant and right lower quadrant. GI: Reports nausea. : No signs and/or symptoms were reported regarding the genitourinary system. EENT: No signs and/or symptoms were reported regarding the EENT system. Derm: Skin is pink, warm \T\ dry. Musculoskeletal: Range of motion: intact in all extremities. 13:09 Reassessment: No changes from previously documented assessment. Patient and/or family mb9 updated on plan of care and expected duration. Pain level reassessed. Patient is alert, oriented x 3, equal unlabored respirations, skin warm/dry/pink. Vital Signs: 11:23 BP 152 / 90; Pulse 96; Resp 16; Temp 98; Pulse Ox 98% on R/A; Weight 117.93 kg; Height db 6 ft. 1 in. ; 13:51 BP 123 / 55; Pulse 60; Resp 18; Pulse Ox 100% on R/A; mb9 11:23 Body Mass Index 34.30 (117.93 kg, 185.42 cm) db ED Course: 11:17 Patient arrived in ED. im 11:23 Kelvin Sanford MD is Attending Physician. christopher 11:25 Triage completed. db 11:27 Arm band placed on Patient placed in an exam room. db 11:33 Initial lab(s) drawn, by me, sent to lab. Inserted saline lock: 20 gauge in right db antecubital area, using aseptic technique. Blood collected. Accessed. 11:35 Soha Lamas, RN is Primary Nurse. mb9 11:36 CBC with Diff Sent. aw1 11:36 CMP Sent. aw1 11:36 Lipase Sent. aw1 11:36 Urinalysis w/ reflexes Sent. aw1 11:51 Placed in gown. Bed in low position. Call light in reach. Side rails up X 1. Provided mb9 Education on: press call light if needing anything. Client placed on continuous cardiac and pulse oximetry monitoring. NIBP monitoring applied. Door closed. Noise minimized. Warm blanket given. Pillow given. 12:05 EKG done, by ED staff, reviewed by Kelvin Sanford MD. mb9 12:07 US Abdomen Limited In Process Unspecified. EDMS 12:31 CT Abd/Pelvis - IV Contrast Only In Process Unspecified. EDMS 14:59 Larry Pina MD is Hospitalizing Provider. christopher 18:55 BS 169. aw1 19:34 No provider procedures requiring assistance completed. Patient admitted, IV remains in cp4 place. Administered Medications: 11:47 Drug: Ondansetron IVP 4 mg IVP once; over 2 minutes Route: IVP; Site: right antecubital;mb9 13:09 Follow up: Response: No adverse reaction mb9 11:49 Drug: NS 0.9% IV 1000 ml IV at 1 bolus Per protocol; 1000 mL bolus Route: IV; Rate: 1 mb9 bolus; Site: right antecubital; 13:10 Follow up: Response: No adverse reaction; IV Status: Completed infusion mb9 11:49 Drug: Famotidine IVP 20 mg IVP once; dilute with 10 mL 0.9% NaCl; give over 2 minutes mb9 Route: IVP; Site: right antecubital; 13:09 Follow up: Response: No adverse reaction mb9 12:05 Drug: morphine IVP or IV 4 mg IVP once over 4 mins Route: IVP; Infused Over: 4 mins; mb9 Site: right antecubital; 13:09 Follow up: Response: No adverse reaction mb9 13:47 Drug: NS 0.9% IV 1000 ml IV at 1 bolus Per protocol; 1000 mL bolus Route: IV; Rate: 1 mb9 bolus; Site: right antecubital; 13:47 Drug: NS 0.9% IV 1000 ml IV at 125 ml/hr continuous Route: IV; Rate: 125 ml/hr; Site: mb9 right antecubital; 14:59 Not Given (Physician Discretion): ns 0.9% 1000 ml IV at 1 bolus Per protocol; 1000 mL mb9 bolus Medication: 11:51 VIS not applicable for this client. mb9 Outcome: 15:00 Decision to Hospitalize by Provider. christopher 21:14 Patient left the ED. cp4 Signatures: Dispatcher [employer] EDKelvin Valenzuela MD MD cha Benton, Danielle, RN RN db Wilkerson, Mary Beth, RN RN mb9 Jessie Smith Alyssa aw1 Potter, Christina cp4
--- NOTE | 2024-04-15 15:01 | EDPHYS ---
Physician Documentation [facility] Name: Gustavo Huffman Age: 54 yrs Sex: Male : 1970 Arrival Date: 04/15/2024 Time: 11:14 Bed 17 Private MD: ED Physician Kelvin Sanford HPI: 04/15 14:52 This 54 yrs old Black Male presents to ER via Ambulatory with complaints of Abdominal christopher Pain. 14:52 The patient presents with abdominal pain in the epigastric area, in the upper abdomen, christopher abdominal distention in the upper abdomen, in the lower abdomen. Onset: The symptoms/episode began/occurred 3 day(s) ago. The patient presents to the emergency department with nausea, vomiting, abdominal pain, of the epigastric area, right upper quadrant and left upper quadrant, described as crampy. Possible causes: alcohol. The symptoms are aggravated by food , alcohol, The symptoms are alleviated by remaining still. Associated signs and symptoms: Pertinent positives: abdominal pain, nausea, vomiting. The symptoms radiate to back. Historical: - Allergies: :26 No Known Allergies; db - PMHx: 11:26 Diabetes - IDDM; Hypertension; PR; db - Immunization history:: Adult Immunizations unknown. - Infectious Disease History:: Denies. - Social history:: Smoking status: Patient reports the use of cigarette tobacco products, cigars. - Family history:: not pertinent. ROS: 14:52 Constitutional: Negative for fever, chills, and weight loss, Eyes: Negative for injury, christopher pain, redness, and discharge, ENT: Negative for injury, pain, and discharge, Neck: Negative for injury, pain, and swelling, Cardiovascular: Negative for chest pain, palpitations, and edema, Respiratory: Negative for shortness of breath, cough, wheezing, and pleuritic chest pain, Back: Negative for injury and pain, : Negative for injury, bleeding, discharge, and swelling, MS/Extremity: Negative for injury and deformity, Skin: Negative for injury, rash, and discoloration, Neuro: Negative for headache, weakness, numbness, tingling, and seizure, Psych: Negative for depression, anxiety, suicide ideation, homicidal ideation, and hallucinations, Allergy/Immunology: Negative for hives, rash, and allergies, Endocrine: Negative for neck swelling, polydipsia, polyuria, polyphagia, and marked weight changes, 14:52 Abdomen/GI: Positive for abdominal pain, abdominal cramps, abdominal distension, of the epigastric area, right upper quadrant and left upper quadrant, Exam: 14:52 Constitutional: This is a well developed, well nourished patient who is awake, alert, christopher and in no acute distress. Head/Face: Normocephalic, atraumatic. Eyes: Pupils equal round and reactive to light, extra-ocular motions intact. Lids and lashes normal. Conjunctiva and sclera are non-icteric and not injected. Cornea within normal limits. Periorbital areas with no swelling, redness, or edema. ENT: Nares patent. No nasal discharge, no septal abnormalities noted. Tympanic membranes are normal and external auditory canals are clear. Oropharynx with no redness, swelling, or masses, exudates, or evidence of obstruction, uvula midline. Mucous membranes moist. Neck: Trachea midline, no thyromegaly or masses palpated, and no cervical lymphadenopathy. Supple, full range of motion without nuchal rigidity, or vertebral point tenderness. No Meningismus. Chest/axilla: Normal chest wall appearance and motion. Nontender with no deformity. No lesions are appreciated. Cardiovascular: Regular rate and rhythm with a normal S1 and S2. No gallops, murmurs, or rubs. Normal PMI, no JVD. No pulse deficits. Respiratory: Lungs have equal breath sounds bilaterally, clear to auscultation and percussion. No rales, rhonchi or wheezes noted. No increased work of breathing, no retractions or nasal flaring. Back: No spinal tenderness. No costovertebral tenderness. Full range of motion. Male : Normal genitalia with no discharge or lesions. Skin: Warm, dry with normal turgor. Normal color with no rashes, no lesions, and no evidence of cellulitis. MS/ Extremity: Pulses equal, no cyanosis. Neurovascular intact. Full, normal range of motion. Neuro: Awake and alert, GCS 15, oriented to person, place, time, and situation. Cranial nerves II-XII grossly intact. Motor strength 5/5 in all extremities. Sensory grossly intact. Cerebellar exam normal. Normal gait. Psych: Awake, alert, with orientation to person, place and time. Behavior, mood, and affect are within normal limits. 14:52 ECG was reviewed by the Attending Physician. 14:52 Abdomen/GI: Inspection: distension, that is mild, Bowel sounds: normal, Palpation: moderate abdominal tenderness, in the epigastric area, right upper quadrant and left upper quadrant, Liver: no appreciated palpable abnormalities, Hernia: not appreciated, Vital Signs: 11:23 BP 152 / 90; Pulse 96; Resp 16; Temp 98; Pulse Ox 98% on R/A; Weight 117.93 kg; Height db 6 ft. 1 in. ; 13:51 BP 123 / 55; Pulse 60; Resp 18; Pulse Ox 100% on R/A; mb9 11:23 Body Mass Index 34.30 (117.93 kg, 185.42 cm) db MDM: 11:23 Patient medically screened. [facility] 14:56 Differential diagnosis: Nonspecific abd pain, appendicitis, diverticulitis, viral christopher gastroenteritis, gastroenteritis, AAA, bowel obstruction, cholecystitis, Cholelithiasis, diverticulitis, gastritis, gastroesophageal reflux disease, Hepatitis, myocardia ischemia or infarction, non-specific abd pain, pancreatitis, Peptic Ulcer Disease, Peritonitis, Prostatitis, Ureterolithiasis. Data reviewed: vital signs, nurses notes, lab test result(s), EKG, radiologic studies, CT scan, plain films, ultrasound. Consideration of Admission/Observation Patient was admitted/placed on observation. Escalation of care including admission/observation considered. I considered the following discharge prescriptions or medication management in the emergency department Medications were administered in the Emergency Department. See MAR. Independent interpretation of the following test(s) in the Emergency Department EKG: See my EKG interpretation above. Test considered but Not performed: MRI: no mrcp. Historians other than the Patient: Family Member: dad, well informred. Care significantly affected by the following chronic conditions: Diabetes, Hypertension, Obesity. Counseling: I had a detailed discussion with the patient and/or guardian regarding the historical points, exam findings, and any diagnostic results supporting the discharge/admit diagnosis, the presence of at least one elevated blood pressure reading (>120/80) during this emergency department visit, lab results, radiology results, the need for further work-up and treatment in the hospital. 04/15 11:24 Order name: CBC with Diff; Complete Time: 13:17 [facility] 04/15 11:24 Order name: CMP; Complete Time: 13:17 [facility] 04/15 11:24 Order name: Lipase; Complete Time: 13:17 [facility] 04/15 11:24 Order name: Urinalysis w/ reflexes; Complete Time: 14:06 [facility] 04/15 11:43 Order name: Troponin High Sensitivity; Complete Time: 13:17 [facility] 04/15 13:18 Order name: Lipid Profile [facility] 04/15 16:56 Order name: Thyroid Stimulating Hormone EDMS / 16:56 Order name: Urinalysis w/ reflexes EDMS / 16:57 Order name: CBC with Automated Diff EDMS / 16:57 Order name: CBC with Automated Diff EDMS / 16:57 Order name: CBC with Automated Diff EDMS / 16:57 Order name: CBC with Automated Diff EDMS / 16:57 Order name: Comprehensive Metabolic Panel EDMS / 16:57 Order name: Comprehensive Metabolic Panel EDMS / 16:57 Order name: Comprehensive Metabolic Panel EDMS / 16:57 Order name: Comprehensive Metabolic Panel EDMS / 16:57 Order name: Hemoglobin A1c EDMS / 16:57 Order name: Hemoglobin A1c EDMS / 16:57 Order name: Lipase EDMS 07/ 16:57 Order name: Lipase EDMS / 16:57 Order name: Magnesium EDMS / 16:57 Order name: Magnesium EDMS 07/ 16:57 Order name: Magnesium EDMS / 16:57 Order name: Magnesium EDMS 07/03 16:57 Order name: Phosphorus EDMS / 16:57 Order name: Phosphorus EDMS / 16:57 Order name: Phosphorus EDMS / 16:57 Order name: Phosphorus EDMS /03 19:06 Order name: Glucose, Ancillary Testing EDMS / 11:24 Order name: CT Abd/Pelvis - IV Contrast Only; Complete Time: 13:17 [facility] 04/15 11:43 Order name: US Abdomen Limited; Complete Time: 13:17 [facility] 04/15 11:24 Order name: EKG; Complete Time: 11:25 [facility] 04/15 16:57 Order name: Delirium Tremens Prophylaxis-IV Meds EDMS 04/15 11:24 Order name: IV Saline Lock; Complete Time: 11:36 [facility] 04/15 11:24 Order name: Labs collected and sent; Complete Time: 11:36 [facility] 04/15 11:24 Order name: EKG - Nurse/Tech; Complete Time: 12:05 christopher EC:52 Rate is 89 beats/min. Rhythm is regular. QRS [place] is Normal. [place] interval is normal. QRS christopher interval is normal. QT interval is normal. No Q waves. T waves are Normal. No ST changes noted. Clinical impression: NSR w/ Non-specific ST/T Changes and No evidence of ischemia. Interpreted by me. Reviewed by me. Administered Medications: 11:47 Drug: Ondansetron IVP 4 mg IVP once; over 2 minutes Route: IVP; Site: right antecubital;mb9 13:09 Follow up: Response: No adverse reaction mb9 11:49 Drug: NS 0.9% IV 1000 ml IV at 1 bolus Per protocol; 1000 mL bolus Route: IV; Rate: 1 mb9 bolus; Site: right antecubital; 13:10 Follow up: Response: No adverse reaction; IV Status: Completed infusion mb9 11:49 Drug: Famotidine IVP 20 mg IVP once; dilute with 10 mL 0.9% NaCl; give over 2 minutes mb9 Route: IVP; Site: right antecubital; 13:09 Follow up: Response: No adverse reaction mb9 12:05 Drug: morphine IVP or IV 4 mg IVP once over 4 mins Route: IVP; Infused Over: 4 mins; mb9 Site: right antecubital; 13:09 Follow up: Response: No adverse reaction mb9 13:47 Drug: NS 0.9% IV 1000 ml IV at 1 bolus Per protocol; 1000 mL bolus Route: IV; Rate: 1 mb9 bolus; Site: right antecubital; 13:47 Drug: NS 0.9% IV 1000 ml IV at 125 ml/hr continuous Route: IV; Rate: 125 ml/hr; Site: mb9 right antecubital; 14:59 Not Given (Physician Discretion): ns 0.9% 1000 ml IV at 1 bolus Per protocol; 1000 mL mb9 bolus Disposition Summary: 04/15/24 15:00 Hospitalization Ordered Notes: Hospitalization Status: Inpatient Admission christopher Provider: Larry Pina christopher Condition: Stable christopher Problem: new christopher Symptoms: have improved christopher Bed/Room Type: Standard christopher Location: Telemetry/MedSurg (Inpatient)(04/15/24 19:26) jb4 Room Assignment: 205(04/15/24 19:26) jb4 Diagnosis - Epigastric abdominal tenderness christopher - Other chronic pancreatitis - ACUTE ALCOHOLIC christopher - Alcohol abuse christopher Forms: - Medication Reconciliation Form christopher - SBAR form christopher - Leadership Thank You Letter christopher Signatures: Dispatcher [employer] EDKelvin Valenzuela MD MD cha Bryson, James, RN RN jb4 Blanche Cole RN RN kb3 Alexus Melchor RN RN Soha Betts RN RN mb9 Corrections: (The following items were deleted from the chart) 17:33 15:00 Telemetry/MedSurg (Inpatient) christopher kb3 17:33 15:00 christopher kb3 19:26 17:33 [facility] ER HOLD kb3 jb4 19:26 17:33 ERHOLD- kb3 jb4
--- NOTE | 2024-04-15 15:27 | P.HP ---
Certification for Inpatient Patient admitted to: Inpatient With expected LOS: >2 Midnights Patient will require the following post-hospital care: None Practitioner: I am a practitioner with admitting privileges, knowledge of patient current condition, hospital course, and medical plan of care. Services: Services provided to patient in accordance with Admission requirements found in Title 42 Section 412.3 of the Code of Federal Regulations <Maida Santoro - Last Filed: 04/15/24 17:36> Patient History Date of Service: 04/15/24 Reason for admission: moderate/severe pancreatitis History of Present Illness: Mr. Huffman is a 54-year-old with a past medical history of coronary artery disease, hyperlipidemia, insulin-dependent diabetes, and alcohol abuse. He has an intermittent 3-day history of left upper quadrant abdominal pain. 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 He had nausea and vomiting over the weekend and has been feeling so poorly he called into work yesterday (04/14/24). He awoke early this morning with severe constant left upper quadrant pain prompting a call to EMS. On evaluation in the emergency department, he was found to have moderate to severe pancreatitis. He admits to excessive alcohol use/abuse. We will admit him for further investigation and treatment. Home medications list reviewed: Yes - Past Medical/Surgical History Has patient received pneumonia vaccine in the past: No -: CAD -: HTN -: HLD -: IDDM Past Surgical History: Patient denies surgical history Psychosocial/ Personal History: Lives in a trailer with his Sister - Family History Mother -: Heart disease, Hypertension, Diabetes Brother -: Heart disease, Hypertension, Diabetes - Social History Smoking Status: Light Tobacco smoker (1-9 cigarettes/day) Patient receptive to therapy: No (Cigars) Alcohol use: Yes CD- Drugs: No Caffeine use: Yes Place of Residence: Home <Maida Santoro - Last Filed: 04/15/24 17:36> Date of Service: 04/15/24 <Larry Pina - Last Filed: 04/15/24 18:06> Allergies No Known Allergies Allergy (Verified 12/19/16 02:02) Review of Systems 10-point ROS is otherwise unremarkable Gastrointestinal: Nausea, Vomiting, Abdominal Pain, As per HPI <Maida Santoro - Last Filed: 04/15/24 17:36> Physical Examination - Physical Exam General: Alert, In no apparent distress, Oriented x3 HEENT: Atraumatic, Normocephalic Neck: Supple Respiratory: Normal air movement Cardiovascular: No edema, Normal pulses, Regular rate/rhythm Capillary refill: <2 Seconds Gastrointestinal: Soft and benign (decreased tenderness post tx in ED) Musculoskeletal: No clubbing, No swelling Integumentary: No rashes Neurological: Normal speech, Normal tone, Normal affect Lymphatics: No axilla or inguinal lymphadenopathy External genitalia: Deferred Rectal: Deferred - Studies Laboratory Data (last 24 hrs) 04/15/24 04/15/24 11:33 11:33 WBC 8.60 Hgb 15.6 Hct 46.2 Plt Count 248 Sodium 133 L Potassium 4.0 BUN 13 Creatinine 1.24 Glucose 305 H Total Bilirubin 0.5 AST < 10 L ALT 23 Alkaline Phosphatase 60 Lipase 271 H <Maida Santoro - Last Filed: 04/15/24 17:36> - Studies Laboratory Data (last 24 hrs) 04/15/24 04/15/24 11:33 11:33 WBC 8.60 Hgb 15.6 Hct 46.2 Plt Count 248 Sodium 133 L Potassium 4.0 BUN 13 Creatinine 1.24 Glucose 305 H Total Bilirubin 0.5 AST < 10 L ALT 23 Alkaline Phosphatase 60 Lipase 271 H <Larry Pina - Last Filed: 04/15/24 18:06> Assessment and Plan - Plan Pancreatitis hydration pain control NPO Monitor and trend electrolytes, lipase Alcohol abuse Recommend cessation DT prophylaxis Hypertension monitor and trend Hydralazine IV every 6 as needed VTE/GI prophylaxis Lovenox/Protonix - Advance Directives Does patient have a Living Will: No Does patient have a Durable POA for Healthcare: No <Maida Santoro - Last Filed: 04/15/24 17:36> - Plan Pt seen and examined. I agree with the note by the ADMINISTRATIVE ANALYST. Pt is a 54 yo male with past medical history of DM II, Htn, CAD s/p [place], hyperlipidemia, insulin- dependent diabetes, and alcohol abuse who presents with abdominal pain x 3 days. The abd pain is in the epigastric region, crampy, constant and non-radiating in nature with severity of 10/10. The abd pain is associated with nausea and vomiting. Pt reports that alcohol makes it worse. On admission, lab studies show wbc 8.6, Hgb 15.6, K 4, Cr 1.24, lipase 271. At bedside, Pt was in NAD. A/P: Acute pancreatitis: Continue IVF, prn pain med and keep NPO. Lipase 271 Hyponatremia: Na is 133. Will continue IVF and monitor Na level. Alcohol abuse: Will place Pt on CIWA protocol with folic acid, thiamine, multivitamin and prn Ativan. Pt was advised to quit drinking DM II: Continue accuchek, SSI, lantus 10u qhs and ADA diet. Htn: Continue home med DVT ppx: heparin Code: full <Larry Pina - Last Filed: 04/15/24 18:06>
[2024-04-15] MEDS ORDERED: SODIUM CHLORIDE 0.9% 10ML INJ IV PRN (16:42)
[2024-04-15] MEDS ORDERED: DIAZEPAM 10 MG/2 ML INJ SYRINGE IV PRN (16:42)
[2024-04-15] MEDS ORDERED: LORazepam 2 MG/ML VIAL IV PRN (16:42)
[2024-04-15] MEDS: NA CHLORIDE 0.9% 1,000 ML IV SCH (17:00)
[2024-04-15] MEDS: LORazepam 2 MG/ML VIAL IV SCH (17:00)
[2024-04-15] MEDS ORDERED: INSULIN GLARGINE 100 UNIT/ML SQ ONE (17:29)
[2024-04-15] MEDS: INSULIN GLARGINE 100 UNIT/ML SQ SCH (17:30)
[2024-04-15] MEDS ORDERED: LORazepam 2 MG/ML VIAL ONE (17:30)
[2024-04-15] MEDS ORDERED: HYDRALAZINE HCL 20 MG/ML VIAL IV PRN (17:35)
[2024-04-15] MEDS: INSULIN REGULAR (HUMAN) 100 UNIT/ML SQ SCH (18:00)
[2024-04-15] MEDS: PANTOPRAZOLE 40 MG INJ IVP SCH (21:52)
[2024-04-15] MEDS: MORPHINE 4 MG/ML SYR IV PRN (21:58)
[2024-04-16] MEDS ORDERED: D50W 25 GM/50 ML SYRINGE IV PRN (07:28)
[2024-04-16] MEDS ORDERED: GLUCAGON 1 MG/VIAL IM PRN (07:28)
[2024-04-16] MEDS: INSULIN LISPRO 100 UNIT/ML SQ SCH (07:30)
[2024-04-16 08:09] LABS: Absolute Eosinophils 0.1 K/uL (0-0.5); Absolute Lymphocytes (CBC) 1.8 K/uL (0.7-4.9); Absolute Monocytes 0.6 K/uL (0.1-1.3); Absolute Neutrophil 4.6 K/uL (1.8-8.0); Basophils % 0.7 % (0-1.3); Eosinophils % 1.6 % (0-4.4); Hematocrit 41.1 % (39.6-49.0); Lymphocytes % 25.5 % (15.3-44.8); MCH 31.5 pg (27.0-35.0); MCHC 34.1 g/dL (32.0-36.0); MCV 92.4 fL (80-100); MPV 9.5 fL (7.6-11.3); Monocytes % 8.2 % (3.3-12.3); Nucleated Red Blood Cells % 0.1 % (0-0); Platelets 223 thou/uL (152-406); RBC Red Blood Cell Count 4.44 M/uL (4.33-5.43); Red Cell Distribution Width 13.5 % (12.1-15.2)
[2024-04-16] MEDS: ENOXAPARIN 40 MG/0.4 ML SQ SCH (08:45)
[2024-04-16 08:46] LABS: ALT/SGPT 18 U/L (16-61); Albumin 2.7 g/dL (3.4-5.0); Albumin/Globulin Ratio 0.8 (1.1-1.8); Alkaline Phosphatase 50 U/L (45-117); Anion Gap 6.7 mEq/L (5.0-15.0); BUN Blood Urea Nitrogen 9 mg/dL (7-18); Bicarbonate 27 mEq/L (21-32); Bilirubin Total 0.6 mg/dL (0.2-1.0); Globulin 3.4 g/dL (2.3-3.5); Glomerular Filtration Rate 91 ml/min (=/>90); Glucose Level 214 mg/dL (74-106); Lipase 113 U/L (13-75); Magnesium 1.2 mg/dL (1.6-2.4); Phosphorus 2.2 mg/dL (2.5-4.9); Potassium 3.7 mEq/L (3.5-5.1); Protein, Total 6.1 g/dL (6.4-8.2); Sodium Level 136 mEq/L (136-145)
[2024-04-16 08:47] LABS: AST/SGOT < 10 U/L (15-37)
--- NOTE | 2024-04-16 10:15 | P.PN ---
Subjective Date of Service: 04/16/24 Chief Complaint: moderate/severe pancreatitis Pt is resting comfortably in bed. He was sleeping when I saw him. Pt still has abd pain. He denies any nausea or vomiting. No other complaints. Lipase is 113 <- 271. Review of Systems General: Unremarkable Eyes: Unremarkable ENT: Unremarkable Respiratory: Unremarkable Cardiovascular: Unremarkable Gastrointestinal: Abdominal Pain Genitourinary: Unremarkable Musculoskeletal: Unremarkable Integumentary: Unremarkable Neurological: Unremarkable Lymphatics: Unremarkable Physical Examination - Vital Signs Temperature: 98.1 F Blood Pressure: 145/86 Pulse: 70 Respirations: 16 Pulse Ox (%): 98 - Physical Exam General: Alert, In no apparent distress, Oriented x3 HEENT: Atraumatic, Normocephalic, PERRLA Neck: Supple, 2+ carotid pulse no bruit, JVD not distended Respiratory: Clear to auscultation bilaterally, Normal air movement Cardiovascular: No edema, Normal pulses, Regular rate/rhythm, Normal S1 S2 Capillary refill: <2 Seconds Gastrointestinal: Normal bowel sounds, Soft and benign, Non-distended, Tenderness Musculoskeletal: No clubbing, No swelling, No contractures Integumentary: No rashes, No breakdown, No significant lesion Neurological: Normal gait, Normal speech, Normal strength at 5/5 x4 extr Lymphatics: No axilla or inguinal lymphadenopathy - Studies Laboratory Data (last 24 hrs) 04/15/24 04/15/24 04/15/24 11:33 11:33 11:33 WBC 8.60 Hgb 15.6 Hct 46.2 Plt Count 248 Sodium 133 L Potassium 4.0 BUN 13 Creatinine 1.24 Glucose 305 H Total Bilirubin 0.5 AST < 10 L ALT 23 Alkaline Phosphatase 60 Triglycerides 84 Cholesterol 170 HDL Cholesterol 52 Cholesterol/HDL Ratio 3.27 Lipase 271 H Assessment And Plan - Plan Acute pancreatitis: Continue IVF, prn pain med and keep NPO. Lipase 271-> 113. Hyponatremia: Na is 133. Will continue IVF and monitor Na level. Alcohol abuse: Will place Pt on CIWA protocol with folic acid, thiamine, multivitamin and prn Ativan. Pt was advised to quit drinking DM II: Continue accuchek, SSI, lantus 20u qhs and ADA diet. Htn: Continue home med DVT ppx: heparin Code: full Dispo: pending hospital course.
[2024-04-16] MEDS: Magnesium Sulfate 2gm IVPB 2 G/50 ML BAG IV ONE (10:47)
[2024-04-16 11:40] VITALS: O2SAT 99
[2024-04-16 17:29] LABS: Specific Gravity 1.009 (1.005-1.030); Urine Bilirubin NEGATIVE (Negative); Urine Blood Negative (Negative); Urine Clarity Clear (Clear); Urine Color Light-Yellow (Yellow); Urine Glucose NEGATIVE (Negative); Urine Ketones NEGATIVE (Negative); Urine Microscopic Reflex YN NO UMIC; Urine Nitrite NEGATIVE (Negative); Urine Protein NEGATIVE (Negative); Urine Urobilinogen Normal (Normal)
[2024-04-16 17:57] VITALS: BMI 33.3
[2024-04-17] MEDS: ONDANSETRON 4 MG/2 ML VIAL IV PRN (02:07)
[2024-04-17] MEDS: NA CHLORIDE 0.9% 1,000 ML IV SCH (07:27)
[2024-04-17] MEDS ORDERED: D10W 250 ML BAG IV PRN (07:51)
[2024-04-17 08:27] LABS: Absolute Eosinophils 0.2 K/uL (0-0.5); Absolute Lymphocytes (CBC) 2.1 K/uL (0.7-4.9); Absolute Monocytes 0.5 K/uL (0.1-1.3); Absolute Neutrophil 2.8 K/uL (1.8-8.0); Basophils % 0.5 % (0-1.3); Eosinophils % 3.4 % (0-4.4); Hematocrit 41.3 % (39.6-49.0); Hemoglobin 13.6 g/dL (13.6-17.9); Lymphocytes % 37.1 % (15.3-44.8); MCH 30.8 pg (27.0-35.0); MCV 93.3 fL (80-100); MPV 9.3 fL (7.6-11.3); Monocytes % 8.7 % (3.3-12.3); Neutrophils % 50.3 % (41.7-73.7); Platelets 216 thou/uL (152-406); RBC Red Blood Cell Count 4.43 M/uL (4.33-5.43); Red Cell Distribution Width 13.2 % (12.1-15.2)
[2024-04-17 08:44] LABS: ALT/SGPT 16 U/L (16-61); Albumin 2.7 g/dL (3.4-5.0); Albumin/Globulin Ratio 0.8 (1.1-1.8); Alkaline Phosphatase 46 U/L (45-117); Anion Gap 5.8 mEq/L (5.0-15.0); BUN Blood Urea Nitrogen 6 mg/dL (7-18); Bicarbonate 27 mEq/L (21-32); Bilirubin Total 0.4 mg/dL (0.2-1.0); Globulin 3.3 g/dL (2.3-3.5); Glomerular Filtration Rate 98 ml/min (=/>90); Glucose Level 154 mg/dL (74-106); Lipase 53 U/L (13-75); Magnesium 1.5 mg/dL (1.6-2.4); Phosphorus 2.5 mg/dL (2.5-4.9); Potassium 3.8 mEq/L (3.5-5.1); Sodium Level 139 mEq/L (136-145)
[2024-04-17 08:48] LABS: AST/SGOT < 10 U/L (15-37)
--- NOTE | 2024-04-17 09:47 | P.DS ---
Admission Date: 04/15/24 Discharge Date: 04/17/24 Reason for Admission: moderate/severe pancreatitis Consultations: none Procedures: none Brief History of Present Illness: Mr. Huffman is a 54-year-old with a past medical history of coronary artery disease, hyperlipidemia, insulin-dependent diabetes, and alcohol abuse. He has an intermittent 3-day history of left upper quadrant abdominal pain. 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 He had nausea and vomiting over the weekend and has been feeling so poorly he called into work yesterday (04/14/24). He awoke early this morning with severe constant left upper quadrant pain prompting a call to EMS. On evaluation in the emergency department, he was found to have moderate to severe pancreatitis. He admits to excessive alcohol use/abuse. We will admit him for further investigation and treatment. Hospital Course: Mr. Huffman did well over the course of his hospitalization. Lipase trended down from 271 to 53. Pain resolved. He is able to tolerate his diet. He has been counseled on the dangers of alcohol. He did not necessitate any withdrawal treatment over the course of his admission. Hemoglobin A1c is 10.2 and he is aware he needs to do a much better job of controlling his blood sugar. Follow- up with PCP and endocrinology has been strongly encouraged <Maida Santoro - Last Filed: 04/17/24 10:42> Admission Date: 04/15/24 Discharge Date: 04/17/24 Hospital Course: Pt seen and examined. I agree with the note by the [employer]. Lipase is within normal range 217 -> 113 -> 53. He was advised to quit drinking. Pt was discharged Jardiance. A1c is 10.2 He needs to follow up with his PCP to monitor glucose. Will start insulin if glucose remained uncontrolled. Ok to dc. <Larry Pina - Last Filed: 04/17/24 22:28> Disposition: ROUTINE DISCHARGE Discharge Condition: GOOD Vital Signs/Physical Exam: Temp Pulse Resp BP Pulse Ox 97.1 F 62 16 132/68 97 04/17/24 08:00 04/17/24 08:00 04/17/24 08:00 04/17/24 08:00 04/17/24 08:00 General: Alert, In no apparent distress, Oriented x3 HEENT: Atraumatic, Normocephalic Neck: Supple Respiratory: Clear to auscultation bilaterally, Normal air movement Cardiovascular: Normal pulses, Regular rate/rhythm Capillary refill: <2 Seconds Gastrointestinal: Normal bowel sounds, Soft and benign Musculoskeletal: No clubbing Integumentary: No rashes Neurological: Normal speech, Normal tone, Normal affect Lymphatics: No axilla or inguinal lymphadenopathy External genitalia: Deferred Rectal: Deferred Laboratory Data at Discharge: WBC 5.60 thou/uL (4.3-10.9) 04/17/24 07:56 Hgb 13.6 g/dL (13.6-17.9) 04/17/24 07:56 Hct 41.3 % (39.6-49.0) 04/17/24 07:56 Plt Count 216 thou/uL (152-406) 04/17/24 07:56 Sodium 139 mEq/L (136-145) 04/17/24 07:56 Potassium 3.8 mEq/L (3.5-5.1) 04/17/24 07:56 BUN 6 mg/dL (7-18) L 04/17/24 07:56 Creatinine 0.92 mg/dL (0.70-1.30) 04/17/24 07:56 Glucose 154 mg/dL (74-106) H 04/17/24 07:56 Phosphorus 2.5 mg/dL (2.5-4.9) 04/17/24 07:56 Magnesium 1.5 mg/dL (1.6-2.4) L 04/17/24 07:56 Total Bilirubin 0.4 mg/dL (0.2-1.0) 04/17/24 07:56 AST < 10 U/L (15-37) L 04/17/24 07:56 ALT 16 U/L (16-61) 04/17/24 07:56 Alkaline Phosphatase 46 U/L (45-117) 04/17/24 07:56 Triglycerides 84 mg/dL (<150) 04/15/24 11:33 Cholesterol 170 mg/dL (<200) 04/15/24 11:33 HDL Cholesterol 52 mg/dL (40-60) 04/15/24 11:33 Cholesterol/HDL Ratio 3.27 04/15/24 11:33 Lipase 53 U/L (13-75) 04/17/24 07:56 <Santoro,Maida Florencio - Last Filed: 04/17/24 10:42> Vital Signs/Physical Exam: Temp Pulse Resp BP Pulse Ox 97.4 F 69 16 138/84 94 04/17/24 11:44 04/17/24 11:44 04/17/24 11:44 04/17/24 11:44 04/17/24 11:44 Laboratory Data at Discharge: WBC 5.60 thou/uL (4.3-10.9) 04/17/24 07:56 Hgb 13.6 g/dL (13.6-17.9) 04/17/24 07:56 Hct 41.3 % (39.6-49.0) 04/17/24 07:56 Plt Count 216 thou/uL (152-406) 04/17/24 07:56 Sodium 139 mEq/L (136-145) 04/17/24 07:56 Potassium 3.8 mEq/L (3.5-5.1) 04/17/24 07:56 BUN 6 mg/dL (7-18) L 04/17/24 07:56 Creatinine 0.92 mg/dL (0.70-1.30) 04/17/24 07:56 Glucose 154 mg/dL (74-106) H 04/17/24 07:56 Phosphorus 2.5 mg/dL (2.5-4.9) 04/17/24 07:56 Magnesium 1.5 mg/dL (1.6-2.4) L 04/17/24 07:56 Total Bilirubin 0.4 mg/dL (0.2-1.0) 04/17/24 07:56 AST < 10 U/L (15-37) L 04/17/24 07:56 ALT 16 U/L (16-61) 04/17/24 07:56 Alkaline Phosphatase 46 U/L (45-117) 04/17/24 07:56 Triglycerides 84 mg/dL (<150) 04/15/24 11:33 Cholesterol 170 mg/dL (<200) 04/15/24 11:33 HDL Cholesterol 52 mg/dL (40-60) 04/15/24 11:33 Cholesterol/HDL Ratio 3.27 04/15/24 11:33 Lipase 53 U/L (13-75) 04/17/24 07:56 <Dagmar Pinajorgenimo Huff - Last Filed: 04/17/24 22:28> Diet: ADA Activity: Ad grace <Maida Santoro - Last Filed: 04/17/24 10:42> <Dagmar Pinalilliana Huff - Last Filed: 04/17/24 22:28> Home Medications: Amlodipine [Norvasc*] 5 mg PO DAILY 04/16/24 Gabapentin 100 mg PO BID PRN 04/16/24 Hydralazine [Apresoline*] 25 mg PO BID 04/16/24 Potassium Chloride 10 meq PO DAILY 04/16/24 hydroCHLOROthiazide [Hydrochlorothiazide] 25 mg PO DAILY 04/16/24 Empagliflozin [Jardiance] 25 mg PO DAILY #30 tab 04/17/24 Insulin NPH Human Isophane [Novolin N] 10 unit SQ BID #1 vial 04/17/24 Insulin Regular, Human [Novolin R] 10 unit SQ BID #10 ml 04/17/24 Promethazine Tab [Phenergan] 25 mg PO Q6HP PRN #15 tab 04/17/24 New Medications: Promethazine Tab [Phenergan] 25 mg PO Q6HP PRN #15 tab PRN Reason: Nausea / Vomiting Empagliflozin [Jardiance] 25 mg PO DAILY #30 tab Insulin NPH Human Isophane [Novolin N] 10 unit SQ BID #1 vial Insulin Regular, Human [Novolin R] 10 unit SQ BID #10 ml Physician Discharge Instructions: Mr. Huffman did well over the course of his hospitalization. Lipase trended down from 271 to 53. Pain resolved. He is able to tolerate his diet. He has been counseled on the dangers of alcohol. He did not necessitate any withdrawal treatment over the course of his admission. Hemoglobin A1c is 10.2 and he is aware he needs to do a much better job of controlling his blood sugar. Follow- up with PCP and endocrinology has been strongly encouraged. He has an appointment with Dr. Short on 04/28/24. He likes his Novolin N and Novolin R regimen and had been talking about adding a daily pill. Will discharge with Jardiance (and Phenergan). Okay to DC IV and DC home Follow-up with primary care provider in 1 to 2 weeks Please call the inpatient unit for any questions or concerns regarding hospital stay Return to the ER for worsening symptoms Followup: Cruz Short DO [Primary Care Provider] -
--- NOTE | 2024-04-17 11:03 | P.DS ---
Admission Date: 04/15/24 Discharge Date: 04/17/24 Reason for Admission: moderate/severe pancreatitis Consultations: none Procedures: none Brief History of Present Illness: Mr. Huffman is a 54-year-old with a past medical history of coronary artery disease, hyperlipidemia, insulin-dependent diabetes, and alcohol abuse. He has an intermittent 3-day history of left upper quadrant abdominal pain. 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 He had nausea and vomiting over the weekend and has been feeling so poorly he called into work yesterday (04/14/24). He awoke early this morning with severe constant left upper quadrant pain prompting a call to EMS. On evaluation in the emergency department, he was found to have moderate to severe pancreatitis. He admits to excessive alcohol use/abuse. We will admit him for further investigation and treatment. Hospital Course: Mr. Huffman did well over the course of his hospitalization. Lipase trended down from 271 to 53. Pain resolved. He is able to tolerate his diet. He has been counseled on the dangers of alcohol. He did not necessitate any withdrawal treatment over the course of his admission. Hemoglobin A1c is 10.2 and he is aware he needs to do a much better job of controlling his blood sugar. He likes his current insulin regimen and has "finally gotten it down to $6". He and his PCP have been discussing adding a daily pill. Will discharge with Jardiance 25mg po daily. Follow-up with PCP Dr. Short (04/28/24). <Maida Santoro - Last Filed: 04/17/24 10:58> Admission Date: 04/15/24 Discharge Date: 04/17/24 Hospital Course: Pt seen and examined. I agree with the note by the [employer]. Lipase is within normal range 217 -> 113 -> 53. He was advised to quit drinking. Pt was discharged Jardiance. A1c is 10.2 He needs to follow up with his PCP to monitor glucose. Will start insulin if glucose remained uncontrolled. Ok to dc. <Larry Pina - Last Filed: 04/17/24 11:52> Disposition: ROUTINE DISCHARGE Discharge Condition: GOOD Vital Signs/Physical Exam: Temp Pulse Resp BP Pulse Ox 97.1 F 62 16 132/68 97 04/17/24 08:00 04/17/24 08:00 04/17/24 08:00 04/17/24 08:00 04/17/24 08:00 General: Alert, In no apparent distress, Oriented x3 HEENT: Atraumatic, Normocephalic Neck: Supple Respiratory: Clear to auscultation bilaterally, Normal air movement Cardiovascular: Normal pulses, Regular rate/rhythm Capillary refill: <2 Seconds Gastrointestinal: Normal bowel sounds, Soft and benign Musculoskeletal: No clubbing Integumentary: No rashes, No breakdown Neurological: Normal gait, Normal tone, Normal affect Lymphatics: No axilla or inguinal lymphadenopathy External genitalia: Deferred Rectal: Deferred Laboratory Data at Discharge: WBC 5.60 thou/uL (4.3-10.9) 04/17/24 07:56 Hgb 13.6 g/dL (13.6-17.9) 04/17/24 07:56 Hct 41.3 % (39.6-49.0) 04/17/24 07:56 Plt Count 216 thou/uL (152-406) 04/17/24 07:56 Sodium 139 mEq/L (136-145) 04/17/24 07:56 Potassium 3.8 mEq/L (3.5-5.1) 04/17/24 07:56 BUN 6 mg/dL (7-18) L 04/17/24 07:56 Creatinine 0.92 mg/dL (0.70-1.30) 04/17/24 07:56 Glucose 154 mg/dL (74-106) H 04/17/24 07:56 Phosphorus 2.5 mg/dL (2.5-4.9) 04/17/24 07:56 Magnesium 1.5 mg/dL (1.6-2.4) L 04/17/24 07:56 Total Bilirubin 0.4 mg/dL (0.2-1.0) 04/17/24 07:56 AST < 10 U/L (15-37) L 04/17/24 07:56 ALT 16 U/L (16-61) 04/17/24 07:56 Alkaline Phosphatase 46 U/L (45-117) 04/17/24 07:56 Triglycerides 84 mg/dL (<150) 04/15/24 11:33 Cholesterol 170 mg/dL (<200) 04/15/24 11:33 HDL Cholesterol 52 mg/dL (40-60) 04/15/24 11:33 Cholesterol/HDL Ratio 3.27 04/15/24 11:33 Lipase 53 U/L (13-75) 04/17/24 07:56 <Santoro,Maida Florencio - Last Filed: 04/17/24 10:58> Vital Signs/Physical Exam: Temp Pulse Resp BP Pulse Ox 97.4 F 69 16 138/84 94 04/17/24 11:44 04/17/24 11:44 04/17/24 11:44 04/17/24 11:44 04/17/24 11:44 Laboratory Data at Discharge: WBC 5.60 thou/uL (4.3-10.9) 04/17/24 07:56 Hgb 13.6 g/dL (13.6-17.9) 04/17/24 07:56 Hct 41.3 % (39.6-49.0) 04/17/24 07:56 Plt Count 216 thou/uL (152-406) 04/17/24 07:56 Sodium 139 mEq/L (136-145) 04/17/24 07:56 Potassium 3.8 mEq/L (3.5-5.1) 04/17/24 07:56 BUN 6 mg/dL (7-18) L 04/17/24 07:56 Creatinine 0.92 mg/dL (0.70-1.30) 04/17/24 07:56 Glucose 154 mg/dL (74-106) H 04/17/24 07:56 Phosphorus 2.5 mg/dL (2.5-4.9) 04/17/24 07:56 Magnesium 1.5 mg/dL (1.6-2.4) L 04/17/24 07:56 Total Bilirubin 0.4 mg/dL (0.2-1.0) 04/17/24 07:56 AST < 10 U/L (15-37) L 04/17/24 07:56 ALT 16 U/L (16-61) 04/17/24 07:56 Alkaline Phosphatase 46 U/L (45-117) 04/17/24 07:56 Triglycerides 84 mg/dL (<150) 04/15/24 11:33 Cholesterol 170 mg/dL (<200) 04/15/24 11:33 HDL Cholesterol 52 mg/dL (40-60) 04/15/24 11:33 Cholesterol/HDL Ratio 3.27 04/15/24 11:33 Lipase 53 U/L (13-75) 04/17/24 07:56 <Larry Pina - Last Filed: 04/17/24 11:52> Diet: ADA Activity: Ad grace <Maida Santorolen - Last Filed: 04/17/24 10:58> <Larry Pina - Last Filed: 04/17/24 11:52> Home Medications: Amlodipine [Norvasc*] 5 mg PO DAILY 04/16/24 Gabapentin 100 mg PO BID PRN 04/16/24 Hydralazine [Apresoline*] 25 mg PO BID 04/16/24 Potassium Chloride 10 meq PO DAILY 04/16/24 hydroCHLOROthiazide [Hydrochlorothiazide] 25 mg PO DAILY 04/16/24 Empagliflozin [Jardiance] 25 mg PO DAILY #30 tab 04/17/24 Insulin NPH Human Isophane [Novolin N] 10 unit SQ BID #1 vial 04/17/24 Insulin Regular, Human [Novolin R] 10 unit SQ BID #10 ml 04/17/24 Promethazine Tab [Phenergan] 25 mg PO Q6HP PRN #15 tab 04/17/24 New Medications: Empagliflozin [Jardiance] 25 mg PO DAILY #30 tab Insulin NPH Human Isophane [Novolin N] 10 unit SQ BID #1 vial Insulin Regular, Human [Novolin R] 10 unit SQ BID #10 ml Promethazine Tab [Phenergan] 25 mg PO Q6HP PRN #15 tab PRN Reason: Nausea / Vomiting Physician Discharge Instructions: Mr. Huffman did well over the course of his hospitalization. Lipase trended down from 271 to 53. Pain resolved. He is able to tolerate his diet. He has been counseled on the dangers of alcohol. He did not necessitate any withdrawal treatment over the course of his admission. Hemoglobin A1c is 10.2 and he is aware he needs to do a much better job of controlling his blood sugar. Follow- up with PCP and endocrinology has been strongly encouraged. He has an appointment with Dr. Short on 04/28/24. He likes his Novolin N and Novolin R regimen and had been talking about adding a daily pill. Will discharge with Jardiance (and Phenergan). Okay to DC IV and DC home Follow-up with primary care provider in 1 to 2 weeks Please call the inpatient unit for any questions or concerns regarding hospital stay Return to the ER for worsening symptoms Followup: Cruz Short DO [Primary Care Provider] -
--- NOTE | 2024-04-17 11:14 | EKG ---
Test Date: 2024-04-15 Test Time: 12:08:56 [employer] Dispatcher: MB MEASUREMENT RESULTS: Intervals: Rate: 89 NM: 158 QRSD: 94 QT: 356 QTc: 433 [place]: P: 73 NM: 158 QRS: 97 T: 44 INTERPRETIVE STATEMENTS: Normal sinus rhythm Normal ECG Compared to ECG 08/04/2023 11:26:43 No significant changes Electronically Signed On 04-17-24 11:12:19 CDT by Rey Kingsley
[2024-04-17 11:53] VITALS: BP 138/84; TEMP 97.4
[2024-04-17] MEDS ORDERED: LORazepam 2 MG/ML VIAL IV SCH (17:00)
== END 2024-04-17 14:31 | disposition home or self-care (01) | DRG 439 ==
LOC: ER 11:14 → ERHOLD 16:42 → 2ND 21:03
PROVIDERS: ADMIT Hospitalist; ATTEND Hospitalist
DX: K85.20 Alcohol induced acute pancreatitis without necrosis or infection (principal); E87.1 Hypo-osmolality and hyponatremia; Z59.01 Sheltered homelessness; F10.10 Alcohol abuse, uncomplicated; E11.9 Type 2 diabetes mellitus without complications; I10 Essential (primary) hypertension; E78.5 Hyperlipidemia, unspecified; E66.9 Obesity, unspecified; I25.2 Old myocardial infarction; I25.10 Atherosclerotic heart disease of native coronary artery without angina pectoris; F17.210 Nicotine dependence, cigarettes, uncomplicated; Z79.4 Long term (current) use of insulin; Z68.34 Body mass index [BMI] 34.0-34.9, adult; Z79.899 Other long term (current) drug therapy; Z71.41 Alcohol abuse counseling and surveillance of alcoholic
CPT/HCPCS: 36415; 74177; 76705; 80053; 80061; 81003; 82947; 83036; 83690; 83735; 84100; 84443; 84484; 85025; 93005; 96361; 96374; 96375; 99285; C9113; J1650; J1815; J2405; J3475; J7030; Q9967

== ENCOUNTER 2024-07-07 21:24 | Emergency (ER) | payer OTHER ==
[2024-07-07] MEDS ORDERED: KETOROLAC 30 MG/ML INJ ONE (22:47)
--- NOTE | 2024-07-07 23:47 | ER ---
Nurse's Notes [id number] Name: Gustavo Huffman Age: 54 yrs Sex: Male : 1970 Arrival Date: 07/07/2024 Time: 21:24 Bed 17 Private MD: Diagnosis: Headache, fungal rash Presentation: 07/07 21:48 Chief complaint: Patient states: c/o headache and neck pain that started Saturday after me1 looking down working on his car a lot the day before. Took naproxen before coming to ER and pain is less than it was. Has rash to left anterior thigh for a month- has been putting antifungal cream on it but it has continued to get bigger. Coronavirus screen: Vaccine status: Patient reports receiving the 2nd dose of the covid vaccine. Ebola Screen: No symptoms or risks identified at this time. Initial Sepsis Screen: Does the patient meet any 2 criteria? No. Patient's initial sepsis screen is negative. Does the patient have a suspected source of infection? No. Patient's initial sepsis screen is negative. Risk Assessment: Do you want to hurt yourself or someone else? Patient reports no desire to harm self or others. Onset of symptoms was July 05, 2024. 21:48 Method Of Arrival: Ambulatory nm1 21:48 Acuity: DAVID 4 me1 Triage Assessment: 07/08 00:00 Headache History: Denies prior headaches. General: Appears Behavior is calm, br2 cooperative. Pain: Also complains of. Pain: Pain. 00:08 Pain: Pain began 3 hours ago. br2 Historical: - Allergies: 07/07 21:53 No Known Allergies; me1 - PMHx: 21:53 Diabetes - IDDM; Hypertension; ND; me1 - PSHx: 21:53 None; me1 - Immunization history:: Adult Immunizations up to date. - Infectious Disease History:: Denies. - Social history:: Smoking status: Patient reports the use of cigarette tobacco products, cigars. Screenin:00 [facility] ED Fall Risk Assessment (Adult) History of falling in the last 3 months, ha1 including since admission No falls in past 3 months (0 pts) Confusion or Disorientation No (0 pts) Intoxicated or Sedated No (0 pts) Impaired Gait No (0 pts) Mobility Assist Device Used No (0 pt) Altered Elimination No (0 pt) Score/Fall Risk Level 0 - 2 = Low Risk Oriented to surroundings, Maintained a safe environment. Abuse screen: Denies threats or abuse. Denies injuries from another. Nutritional screening: No deficits noted. Tuberculosis screening: No symptoms or risk factors identified. Assessment: 22:00 Reassessment: Patient and/or family updated on plan of care and expected duration. Pain ha1 level reassessed. Patient is alert, oriented x 3, equal unlabored respirations, skin warm/dry/pink. General: Appears in no apparent distress. uncomfortable, well groomed. Pain: Complains of pain in scalp Pain radiates to occipital area. Neuro: No deficits noted. Garcia Agitation-Sedation Scale (RASS): 0 - Alert and Calm Level of Consciousness is awake, alert, obeys commands, Oriented to person, place, time, situation. Cardiovascular: No deficits noted. Reports None Denies chest pain, shortness of breath, Capillary refill < 3 seconds. Respiratory: No deficits noted. Airway is patent. GI: No deficits noted. No signs and/or symptoms were reported involving the gastrointestinal system. Abdomen is flat. : No deficits noted. No signs and/or symptoms were reported regarding the genitourinary system. EENT: No deficits noted. No signs and/or symptoms were reported regarding the EENT system. Derm: No deficits noted. No signs and/or symptoms reported regarding the dermatologic system. Musculoskeletal: Reports pain in scalp Pain is 6 out of 10 on a pain scale. 07/08 00:00 Reassessment: Patient and/or family updated on plan of care and expected duration. Pain br2 level reassessed. Patient is alert, oriented x 3, equal unlabored respirations, skin warm/dry/pink. Patient states feeling better. Patient states symptoms have improved. Vital Signs: 07/07 21:48 BP 153 / 94; Pulse 98; Resp 17; Temp 98.2; Pulse Ox 96% ; Weight 108.86 kg; Height 6 me1 ft. 1 in. ; Pain 4/10; 22:00 BP 138 / 85; Pulse 87; Resp 18 S; Temp 98.2(O); Pulse Ox 97% on R/A; ha1 23:58 BP 157 / 99; Pulse 80; Resp 18 S; Pulse Ox 97% on R/A; Pain 3/10; br2 21:48 Body Mass Index 31.66 (108.86 kg, 185.42 cm) me1 21:48 Pain Scale: Adult me1 23:58 Pain Scale: Adult br2 ED Course: 21:30 Patient arrived in ED. gm2 21:49 Zhang Aguero MD is Attending Physician. sp3 21:53 Triage completed. me1 21:53 Arm band placed on Patient placed in waiting room. me1 22:00 Patient has correct armband on for positive identification. Bed in low position. Call ha1 light in reach. Side rails up X 1. Provided Education on: treatment plan . 22:00 No provider procedures requiring assistance completed. ha1 22:37 CT Head Brain wo Cont In Process Unspecified. EDMS 22:45 Sachi Mena, RN is Primary Nurse. ha1 07/08 00:08 Patient did not have IV access during this emergency room visit. br2 Administered Medications: 07/07 22:53 Drug: Ketorolac IM 60 mg IM once Route: IM; Site: left gluteus; ha1 07/08 00:08 Follow up: Response: No adverse reaction; Pain is decreased br2 Medication: 07/07 22:00 VIS not applicable for this client. 1 Outcome: 23:46 Discharge ordered by . sp3 07/08 00:01 Discharged to home ambulatory, br2 Condition: improved Discharge instructions given to patient, Instructed on discharge instructions, follow up and referral plans. Demonstrated understanding of instructions, follow-up care, 00:10 Patient left the ED. br2 Signatures: Dispatcher [employer] EDWV Zhang Aguero MD MD sp3 Sachi Mena, BALBIR MCGREGOR 1 Linda Thompson RN RN nm1 Radha Mayorga 2 Lauryn Delgado RN RN br2
--- NOTE | 2024-07-07 23:47 | EDPHYS ---
Physician Documentation [facility] Name: Gustavo Huffman Age: 54 yrs Sex: Male : 1970 Arrival Date: 07/07/2024 Time: 21:24 Bed 17 Private MD: ED Physician Zhang Aguero HPI: 07/07 22:39 This 54 yrs old Black Male presents to ER via Ambulatory with complaints of Rash, sp3 Headache. 22:39 54-year-old male with history of hypertension, diabetes presents with headache since sp3 Saturday morning where he was "working on his rooms and had his head bent over". He denies any significant trauma, sudden onset of searing pain, numbness or tingling, chest pain, back pain, shortness of breath, or any other signs or symptoms on ROS at this time. Patient states that he took some impt-abu-msumqmh medicine and symptoms are improving. He also has a rash on his left thigh that has been slowly getting worse over the last month. He keeps putting "foot cream on it" but it is not improving. He denies fever or any other associated symptoms.. Historical: - Allergies: 21:53 No Known Allergies; me1 - PMHx: 21:53 Diabetes - IDDM; Hypertension; [place]; me1 - PSHx: 21:53 None; me1 - Immunization history:: Adult Immunizations up to date. - Infectious Disease History:: Denies. - Social history:: Smoking status: Patient reports the use of cigarette tobacco products, cigars. ROS: 22:44 Constitutional: Negative for fever, chills, and weight loss, Eyes: Negative for injury, sp3 pain, redness, and discharge, ENT: Negative for injury, pain, and discharge, Neck: Negative for injury, pain, and swelling, Cardiovascular: Negative for chest pain, palpitations, and edema, Respiratory: Negative for shortness of breath, cough, wheezing, and pleuritic chest pain, Abdomen/GI: Negative for abdominal pain, nausea, vomiting, diarrhea, and constipation, Back: Negative for injury and pain, : Negative for injury, bleeding, discharge, and swelling, Psych: Negative for depression, anxiety, suicide ideation, homicidal ideation, and hallucinations, Allergy/Immunology: Negative for hives, rash, and allergies, Endocrine: Negative for neck swelling, polydipsia, polyuria, polyphagia, and marked weight changes, Hematologic/Lymphatic: Negative for swollen nodes, abnormal bleeding, and unusual bruising, 22:44 All other systems are negative, Exam: 22:44 Constitutional: This is a well developed, well nourished patient who is awake, alert, sp3 and in no acute distress. Head/Face: Normocephalic, atraumatic. Eyes: Pupils equal round and reactive to light, extra-ocular motions intact. Lids and lashes normal. Conjunctiva and sclera are non-icteric and not injected. Cornea within normal limits. Periorbital areas with no swelling, redness, or edema. ENT: Nares patent. No nasal discharge, no septal abnormalities noted. External auditory canals are clear. Oropharynx with no redness, swelling, or masses, exudates, or evidence of obstruction, uvula midline. Mucous membranes moist. Neck: Trachea midline, no thyromegaly or masses palpated, and no cervical lymphadenopathy. Supple, full range of motion without nuchal rigidity, or vertebral point tenderness. No Meningismus. Chest/axilla: Normal chest wall appearance and motion. Nontender with no deformity. No lesions are appreciated. Cardiovascular: Regular rate and rhythm with a normal S1 and S2. No gallops, murmurs, or rubs. Normal PMI, no JVD. No pulse deficits. Respiratory: Lungs have equal breath sounds bilaterally, clear to auscultation and percussion. No rales, rhonchi or wheezes noted. No increased work of breathing, no retractions or nasal flaring. Abdomen/GI: Soft, non-tender, with normal bowel sounds. No distension or tympany. No guarding or rebound. No evidence of tenderness throughout. Back: No spinal tenderness. No costovertebral tenderness. Full range of motion. MS/ Extremity: Pulses equal, no cyanosis. Neurovascular intact. Full, normal range of motion. Neuro: Awake and alert, GCS 15, oriented to person, place, time, and situation. Cranial nerves II-XII grossly intact. Motor strength 5/5 in all extremities. Sensory grossly intact. Cerebellar exam normal. Normal gait. Psych: Awake, alert, with orientation to person, place and time. Behavior, mood, and affect are within normal limits. 22:44 Skin: 6 cm diameter area on left thigh with mild erythema, pruritus and peeling skin noted. Nikolsky sign negative and no signs of cellulitis.. Vital Signs: 21:48 BP 153 / 94; Pulse 98; Resp 17; Temp 98.2; Pulse Ox 96% ; Weight 108.86 kg; Height 6 me1 ft. 1 in. ; Pain 4/10; 22:00 BP 138 / 85; Pulse 87; Resp 18 S; Temp 98.2(O); Pulse Ox 97% on R/A; ha1 23:58 BP 157 / 99; Pulse 80; Resp 18 S; Pulse Ox 97% on R/A; Pain 3/10; br2 21:48 Body Mass Index 31.66 (108.86 kg, 185.42 cm) me1 21:48 Pain Scale: Adult me1 23:58 Pain Scale: Adult br2 MDM: 22:00 Patient medically screened. sp3 22:46 Data reviewed: vital signs, nurses notes, radiologic studies. ED course: 54-year-old sp3 male with headache and rash. Regarding headache, differential diagnosis includes benign headache, migraine, or other intracranial process. CT scan is pending for this. Ketorolac 60 mg IM also given. Regarding rash differential diagnosis includes eczema versus fungal infection. I am not highly suspicious of any other process including cellulitis. Will prescribe antifungal cream and follow-up to PCP. If CT scan is negative we will discharge patient home.. 23:46 ED course: CT scan negative we will safely discharge patient home at this time.. sp3 07/07 22:08 Order name: CT Head Brain wo Cont; Complete Time: 23:58 sp3 Administered Medications: 22:53 Drug: Ketorolac IM 60 mg IM once Route: IM; Site: left gluteus; ha1 07/08 00:08 Follow up: Response: No adverse reaction; Pain is decreased br2 Disposition Summary: 07/07/24 23:46 Discharge Ordered Notes: Location: Home sp3 Condition: Stable sp3 Diagnosis - Headache, fungal rash sp3 Followup: sp3 - With: Private Physician - When: Upon discharge from the Emergency Department - Reason: Continuance of care Discharge Instructions: - Discharge Summary Sheet sp3 - General Headache Without Cause sp3 Forms: - Medication Reconciliation Form sp3 - Antibiotic Education sp3 - Prescription Opioid Use sp3 - Patient Portal Instructions sp3 - Leadership Thank You Letter sp3 Prescriptions: - Clotrimazole 1 % Topical Cream - Apply to affected area 1 application TOPICAL route every 12 hours; 15 gram; sp3 Refills: 0, Product Selection Permitted - Diclofenac Sodium 75 mg Oral Tablet Sustained Release - take 1 tablet ORAL route 2 times per day; 30 tablet; Refills: 0, Product sp3 Selection Permitted Signatures: Dispatcher [employer] Zhang Mitchell MD MD sp3 Sachi Mena RN RN ha1 Linda Thompson RN RN me1 Lauryn Delgado RN br2
--- NOTE | 2024-07-07 23:54 | RAD REPORT ---
EXAM DESCRIPTION: CT HEAD WITHOUT IV CONTRAST 07/07/2024 11:16 PM CDT CLINICAL HISTORY: 54 years, Male, Headache. COMPARISON: CT Head and Cervical Spine 05/15/2024. FINDINGS: Multiple transaxial tomograms of the brain were obtained from the base of the skull to the vertex wit hout contrast. An individualized dose optimization technique, Automated Exposure Control, was utilized for the perfo rmed procedure. Brain: Brain parenchyma as well as the deleon-white matter differentiation demonstrate to be within nor mal limits. There is no evidence for acute intraparenchymal hemorrhage. There is no midline shifts and/or mass effect. No focal areas of hypodensities. Ventricles: Lateral ventricles and cisterns displace normal appearance. Vasculature: No visualized abnormalities in the arteries or dural venous sinuses. Scalp/skull: The calvarium demonstrate to be intact with no evidence for acute bony injuries. Sinuses: The visualized paranasal sinuses and mastoid air cells demonstrate to be clear. Orbits: No significant abnormalities in the visualized orbital structures. IMPRESSION: No evidence for acute intraparenchymal hemorrhage. Unremarkable CT scan of the head without contrast. Electronically signed by: William Sanchez MD 07/07/2024 11:24 PM CDT RP Due to temporary technical issues with the [employer]ACS/[email or web address] reporting system, reports are being jen d by the in-house radiologist without review as a courtesy to ensure prompt reporting the interpreting radiologist is fully responsible for the content of the report. Transcribed Date/Time: 07/07/2024 11:54 PM
[2024-07-08 00:24] VITALS: TEMP 98.2
[2024-07-08 00:26] VITALS: O2SAT 97
[2024-07-08 00:27] VITALS: BP 157/99
== END 2024-07-08 00:10 | disposition home or self-care (01) ==
LOC: ER 21:24
DX: R51.9 Headache, unspecified (principal); R21 Rash and other nonspecific skin eruption; E11.9 Type 2 diabetes mellitus without complications; I10 Essential (primary) hypertension; Z72.0 Tobacco use
CPT/HCPCS: 70450; 96372; 99284

== ENCOUNTER 2025-07-14 21:10 | Inpatient (IN) | payer OTHER, SELFPAY ==
[2025-07-14] MEDS ORDERED: ASPIRIN 81 MG CHEWABLE TABLET ONE (21:57)
[2025-07-14 22:16] LABS: Absolute Lymphocytes (CBC) 2.5 K/uL (0.7-4.9); Hematocrit 48.4 % (39.6-49.0); Hemoglobin 16.6 g/dL (13.6-17.9); MCH 30.1 pg (27.0-35.0); MCHC 34.3 g/dL (32.0-36.0); MCV 87.8 fL (80-100); MPV 9.7 fL (7.6-11.3); Nucleated RBC Absolute Count 0.0 (0-0); Nucleated Red Blood Cells % 0.1 % (0-0); RBC Red Blood Cell Count 5.51 M/uL (4.33-5.43); White Blood Count 8.00 thou/uL (4.3-10.9)
[2025-07-14 22:31] LABS: Anion Gap 9.7 mEq/L (5.0-15.0); BUN Blood Urea Nitrogen 8.0 mg/dL (7-18); Glucose Level 343.0 mg/dL (74-106); NT PRO-BNP 49.0 pg/mL (<125); Potassium 3.7 mEq/L (3.5-5.1)
[2025-07-14 22:35] LABS: Troponin High Sensitivity 687.4 pg/mL (<58.9)
--- NOTE | 2025-07-14 22:36 | RAD REPORT ---
EXAMINATION: ONE VIEW CHEST XR CLINICAL INDICATION: Male, 55 years old.,CHEST PAIN TECHNIQUE: Frontal chest projection is submitted. Examination is limited by patient positioning and t echnique. COMPARISON: 05/15/2024 FINDINGS: The lungs are well inflated and clear. No pneumothorax or sizable effusion. The heart is normal in s ize. Mediastinal contours are unremarkable. IMPRESSION: No acute intrathoracic abnormalities.
[2025-07-14] MEDS ORDERED: CLOPIDOGREL 75 MG TABLET ONE (23:09)
[2025-07-14] MEDS ORDERED: ENOXAPARIN 100 MG/ML SYR SQ ONE (23:09)
--- NOTE | 2025-07-14 23:12 | EDPHYS ---
Physician Documentation [facility] Name: Gustavo Huffman Age: 55 yrs Sex: Male : 1970 Arrival Date: 07/14/2025 Time: 21:10 Bed 2 Private MD: ED Physician Yaniv Cleary HPI: 07/15 00:33 This 55 yrs old Black Male presents to ER via Ambulatory with complaints of Chest pain. tt7 00:33 Patient reports chest pain that started yesterday, but is a constant tight/squeezing tt7 pain in the center of his chest, he has some associated tingling sensation in his left arm, no other associated symptoms. He denies fever, shortness of breath, nausea/vomiting. He rates pain as 7/10 in severity. Past medical history includes hypertension, diabetes, myocardial infarction. Historical: - Allergies: 07/14 22:08 No Known Allergies; br2 - PMHx: 22:08 Diabetes - IDDM; Hypertension; [place]; br2 - Immunization history:: Adult Immunizations up to date. - Infectious Disease History:: Denies. - Social history:: Smoking status: Patient reports the use of cigarette tobacco products, Patient uses CIGARS, Patient/guardian denies using alcohol, street drugs. ROS: 07/15 00:35 Constitutional: negative for fever. Cardiovascular: Positive for chest pain. tt7 Respiratory: negative for shortness of breath. Abdomen/GI: negative for abdominal pain, nausea, vomiting, diarrhea. MS/Extremity: negative for injury and deformity. Skin: negative for rash. Neuro: negative for focal weakness. Exam: 00:35 Constitutional: vital signs reviewed, well appearing. Head/Face: normocephalic, tt7 atraumatic. Eyes: no conjunctival injection, anicteric sclerae. ENT: mucus membranes moist. Neck: trachea midline, no JVD, no meningismus. Chest/axilla: normal chest wall appearance and motion, nontender, no crepitus. Cardiovascular: regular rate and rhythm, no murmurs, no rubs, no lower extremity edema. Respiratory: normal respiratory effort, no accessory muscle use, lungs CTAB. Abdomen/GI: soft, nondistended, nontender, no guarding or rebound, negative Villafuerte's sign, no McBurney point tenderness. Back: normal ROM. Skin: warm, dry, intact, normal turgor, normal color, no rash. MS/ Extremity: normal ROM of extremities, no gross deformities. Neuro: alert and oriented with appropriate mental status, normal speech, follows commands, no focal neurologic deficits. Psych: appropriate mood and affect. Vital Signs: 07/14 22:04 BP 166 / 89; Pulse 92; Resp 14; Pulse Ox 97% on R/A; jb4 22:04 BP 178 / 106; Pulse 97; Resp 18; Temp 97.2; Pulse Ox 97% on R/A; Weight 108.86 kg; br2 Height 6 ft. 1 in. ; Pain 8/; 23:35 BP 175 / 101; Pulse 93; Resp 16; Pulse Ox 99% on R/A; jb4 07/15 00:13 BP 164 / 102; Pulse 91; Resp 18; Pulse Ox 96% on R/A; jb4 01:19 BP 149 / 76; Pulse 80; Resp 17; Pulse Ox 94% on R/A; mf3 07/14 22:04 Body Mass Index 31.66 (108.86 kg, 185.42 cm) br2 22:04 Pain Scale: Adult br2 MDM: 07/14 21:24 Medical Screening Exam initiated tt7 23:12 ED course: 55-year-old male with anginal chest pain, he has a history of previous [place], tt7 vital signs are overall stable, standard cardiac workup ordered, differential diagnosis includes ACS, pneumothorax, pneumonia, GERD, hypertensive crisis. Patient loaded with aspirin. Cardiac monitoring was ordered due to the potential for ischemia causing dysrythmia. I independently interpreted the patient's cardiac rhythm as normal sinus rhythm at a rate of 90 bpm on the monitor technician. I independently interpreted the patient's EKG performed on 07/14/2025 at 2130. On my interpretation, EKG demonstrates normal sinus rhythm, ventricular rate 94 bpm, normal axis, normal QRS interval, some very trace ST elevation in aVF without reciprocal change, no STEMI. 23:13 ED course: I independently interpreted the patient's chest x-ray. On my interpretation, tt7 chest x-ray demonstrates no radiographic evidence of acute cardiopulmonary disease. Laboratory findings demonstrate an elevated troponin of over 680, consistent with NSTEMI, will load with Plavix and anticoagulate with therapeutic Lovenox. I spoke with anesthesiologist assistant certified Dr. Kingsley regarding the patient's clinical presentation, elevated troponin, and EKG findings, he will consult on the case. I spoke with the hospitalist Michael Cee regarding the patient's clinical presentation, laboratory study results, EKG findings and he accepts the patient for admission. 07/15 00:24 ED course: I independently interpreted the patient's EKG performed on 07/15/2025 at tt7 0019. On my interpretation, EKG demonstrates normal sinus rhythm, ventricular rate 79 bpm, normal axis, normal QRS interval, no STEMI. 00:47 Counseling: I had a detailed discussion with the patient and/or guardian regarding the tt7 historical points, exam findings, and any diagnostic results supporting the discharge/admit diagnosis, lab results, radiology results, the need for further work-up and treatment in the hospital. 00:51 Data reviewed: vital signs, nurses notes, lab test result(s), EKG, radiologic studies. tt7 07/14 21:54 Order name: Basic Metabolic Panel; Complete Time: 22:52 7 07/14 21:54 Order name: CBC with Diff; Complete Time: 22:52 7 07/14 21:54 Order name: NT PRO-BNP; Complete Time: 22:52 tt7 07/14 21:54 Order name: Troponin HS; Complete Time: 22:52 7 07/14 21:54 Order name: XRAY Chest (1 view); Complete Time: 22:52 tt7 07/14 21:54 Order name: EKG; Complete Time: 21:55 7 07/14 21:54 Order name: Cardiac monitoring; Complete Time: 22:7 07/14 21:54 Order name: EKG - Nurse/Tech; Complete Time: 22:7 07/14 21:54 Order name: IV Saline Lock; Complete Time: 22:7 07/14 21:55 Order name: Labs collected and sent; Complete Time: 22:00 7 07/14 21:55 Order name: O2 Per Protocol; Complete Time: 22:00 tt7 07/14 21:55 Order name: O2 Sat Monitoring; Complete Time: 22:00 tt7 07/14 23:18 Order name: EKG - Nurse/Tech; Complete Time: 00:23 tt7 Administered Medications: 07/14 22:04 Drug: Aspirin PO Chewable Tablet 324 mg PO once; 81 mg tablets x 4 Route: PO; jb4 23:34 Follow up: Response: No adverse reaction jb4 23:15 Drug: Clopidogrel PO 300 mg PO once Route: PO; jb4 07/15 02:18 Follow up: Response: No adverse reaction jb4 07/14 23:15 Drug: Enoxaparin Sub-Q 1 mg/kg Sub-Q once Route: Sub-Q; Site: left lower abdomen; jb4 07/15 02:18 Follow up: Response: No adverse reaction jb4 07/14 23:33 Drug: HYDROmorphone IVP 0.5 mg IVP once Route: IVP; Site: right antecubital; jb4 07/15 02:18 Follow up: Response: No adverse reaction; Marked relief of symptoms; Pain is decreased; jb4 RASS: Alert and Calm (0) 07/14 23:33 Drug: Ondansetron IVP 4 mg IVP once; over 2 minutes Route: IVP; Site: right antecubital;jb4 07/15 02:18 Follow up: Response: No adverse reaction; Marked relief of symptoms jb4 Disposition: 00:51 Co-signature as Attending Physician, Yaniv Cleary DO. tt7 00:51 Co-signature as Attending Physician, Yaniv Cleary DO. tt7 Disposition Summary: 07/14/25 23:12 Hospitalization Ordered Notes: Hospitalization Status: Inpatient Admission tt7 Provider: Michael Cee ttJulia [facility] tt7 Condition: Fair tt7 Problem: new tt7 Symptoms: have improved tt7 Bed/Room Type: Standard tt7 Room Assignment: 223(07/15/25 00:50) kl Diagnosis - NSTEMI tt7 - Acute myocardial infarction, unspecified tt7 Forms: - Medication Reconciliation Form tt7 - SBAR form tt7 - Leadership Thank You Letter tt7 Signatures: Dispatcher [employer] Perlita Choudhary RN RN kl Bryson, James, RN RN jb4 Lauryn Delgado RN RN br2 Yaniv Cleary DO DO tt7 Corrections: (The following items were deleted from the chart) 00:26 07/14 23:13 ED course: I spoke with anesthesiologist assistant certified Dr. Torres regarding the patient's tt7 clinical presentation, elevated troponin, and EKG findings, he will consult on the case. tt7 07/15 00:37 07/14 23:12 tt7 kl 07/15 00:50 00:37 212 kl kl 00:51 07/14 23:12 ED course: I independently interpreted the patient's EKG performed on tt7 07/14/2025 at 2130. On my interpretation, EKG demonstrates normal sinus rhythm, ventricular rate 94 bpm, normal axis, normal QRS interval, some very trace ST elevation in aVF without reciprocal change, no STEMI. tt7 07/15 00:51 07/14 23:13 ED course: I spoke with anesthesiologist assistant certified Dr. Torres regarding the patient's tt7 clinical presentation, elevated troponin, and EKG findings, he will consult on the case. I spoke with the hospitalist Michael Cee regarding the patient's clinical presentation, laboratory study results, EKG findings and he accepts the patient for admission. tt7
--- NOTE | 2025-07-14 23:12 | ER ---
Nurse's Notes [facility] Name: Gustavo Huffman Age: 55 yrs Sex: Male : 1970 Arrival Date: 07/14/2025 Time: 21:10 Bed 2 Private MD: Diagnosis: NSTEMI;Acute myocardial infarction, unspecified Presentation: 07/14 22:04 Chief complaint: Patient states: PT STATES HE HAS CP TO LEFT CHEST WALL THAT RADIATES br2 TO LUE....TINGLING/NUMBNESS.. PT DENIES SOB/NAUSEA. Coronavirus screen: Client denies travel out of the [place] in the last 14 days. Ebola Screen: Patient denies exposure to infectious person. Initial Sepsis Screen: Does the patient meet any 2 criteria? HR > 90 bpm. Does the patient have a suspected source of infection? No. Patient's initial sepsis screen is negative. Risk Assessment: Do you want to hurt yourself or someone else? Patient reports no desire to harm self or others. Onset of symptoms was July 13, 2025 at 09:00. 22:04 Method Of Arrival: Ambulatory br2 22:04 Acuity: DAVID 3 br2 Triage Assessment: 22:08 General: Appears uncomfortable, Behavior is calm, cooperative. Pain: Complains of pain br2 in anterior aspect of left upper chest and left breast Pain radiates to left arm Pain currently is 8 out of 10 on a pain scale. Historical: - Allergies: 22:08 No Known Allergies; br2 - PMHx: 22:08 Diabetes - IDDM; Hypertension; [place]; br2 - Immunization history:: Adult Immunizations up to date. - Infectious Disease History:: Denies. - Social history:: Smoking status: Patient reports the use of cigarette tobacco products, Patient uses CIGARS, Patient/guardian denies using alcohol, street drugs. Screenin:04 [facility] ED Fall Risk Assessment (Adult) History of falling in the last 3 months, jb4 including since admission No falls in past 3 months (0 pts) Confusion or Disorientation No (0 pts) Intoxicated or Sedated No (0 pts) Impaired Gait No (0 pts) Mobility Assist Device Used No (0 pt) Altered Elimination No (0 pt) Score/Fall Risk Level 0 - 2 = Low Risk Oriented to surroundings, Maintained a safe environment. Abuse screen: Denies threats or abuse. Nutritional screening: No deficits noted. Tuberculosis screening: No symptoms or risk factors identified. Assessment: 22:04 General: Appears in no apparent distress. uncomfortable, Behavior is calm, cooperative, jb4 appropriate for age. Pain: Complains of pain in chest Pain radiates to left arm Pain currently is 9 out of 10 on a pain scale. Quality of pain is described as shooting, Pain began 1 day ago. Is continuous. Neuro: Level of Consciousness is awake, alert, obeys commands, Oriented to person, place, time, situation. Cardiovascular: Patient's skin is warm and dry. Respiratory: Airway is patent Respiratory effort is even, unlabored, Respiratory pattern is regular, symmetrical. Derm: Skin is intact, Skin is dry, Skin is normal, Skin temperature is warm. Musculoskeletal: Circulation, motion, and sensation intact. Range of motion: intact in all extremities. 23:35 Reassessment: Patient appears in no apparent distress at this time. Patient and/or jb4 family updated on plan of care and expected duration. Pain level reassessed. Patient is alert, oriented x 3, equal unlabored respirations, skin warm/dry/pink. admitting provider at the bedside. 07/15 00:13 Reassessment: Patient appears in no apparent distress at this time. Patient and/or jb4 family updated on plan of care and expected duration. Pain level reassessed. Patient is alert, oriented x 3, equal unlabored respirations, skin warm/dry/pink. Vital Signs: 07/14 22:04 BP 166 / 89; Pulse 92; Resp 14; Pulse Ox 97% on R/A; jb4 22:04 BP 178 / 106; Pulse 97; Resp 18; Temp 97.2; Pulse Ox 97% on R/A; Weight 108.86 kg; br2 Height 6 ft. 1 in. ; Pain 8/10; 23:35 BP 175 / 101; Pulse 93; Resp 16; Pulse Ox 99% on R/A; jb4 07/15 00:13 BP 164 / 102; Pulse 91; Resp 18; Pulse Ox 96% on R/A; jb4 01:19 BP 149 / 76; Pulse 80; Resp 17; Pulse Ox 94% on R/A; mf3 07/14 22:04 Body Mass Index 31.66 (108.86 kg, 185.42 cm) br2 22:04 Pain Scale: Adult br2 ED Course: 07/14 21:12 Patient arrived in ED. sj2 21:24 Yaniv Cleary DO is Attending Physician. tt7 22:04 Patient has correct armband on for positive identification. Bed in low position. Call jb4 light in reach. Side rails up X 1. Provided Education on: plan of care. Client placed on continuous cardiac and pulse oximetry monitoring. NIBP monitoring applied. equipment monitor phototypesetting on. Pulse ox on. 22:04 No provider procedures requiring assistance completed. Inserted saline lock: 20 gauge jb4 in right antecubital area, using aseptic technique. Blood collected. Patient maintains SpO2 saturation greater than 95% on room air. 22:07 Initial lab(s) drawn, by me, sent to lab. EKG done, by ED staff, reviewed by Yaniv Cleary DO. 22:08 Triage completed. br2 22:08 Arm band placed on right wrist. br2 22:22 Shane Lau, RN is Primary Nurse. jb4 22:33 XRAY Chest (1 view) In Process Unspecified. EDMS 23:11 Michael Cee, BALBIR is Hospitalizing Provider. tt7 07/15 02:18 Patient admitted, IV remains in place. jb4 Administered Medications: 07/14 22:04 Drug: Aspirin PO Chewable Tablet 324 mg PO once; 81 mg tablets x 4 Route: PO; jb4 23:34 Follow up: Response: No adverse reaction jb4 23:15 Drug: Clopidogrel PO 300 mg PO once Route: PO; jb4 07/15 02:18 Follow up: Response: No adverse reaction jb4 07/14 23:15 Drug: Enoxaparin Sub-Q 1 mg/kg Sub-Q once Route: Sub-Q; Site: left lower abdomen; jb4 07/15 02:18 Follow up: Response: No adverse reaction jb4 07/14 23:33 Drug: HYDROmorphone IVP 0.5 mg IVP once Route: IVP; Site: right antecubital; jb4 07/15 02:18 Follow up: Response: No adverse reaction; Marked relief of symptoms; Pain is decreased; jb4 RASS: Alert and Calm (0) 07/14 23:33 Drug: Ondansetron IVP 4 mg IVP once; over 2 minutes Route: IVP; Site: right antecubital;jb4 07/15 02:18 Follow up: Response: No adverse reaction; Marked relief of symptoms jb4 Medication: 07/14 22:04 VIS not applicable for this client. jb4 Outcome: 23:12 Decision to Hospitalize by Provider. tt7 07/15 02:17 Admitted to Med/surg accompanied by nurse, via wheelchair, room 223, with chart, jb4 Condition: stable Discharge instructions given to patient, Instructed on the need for admit, Demonstrated understanding of instructions, 02:18 Patient left the ED. jb4 Signatures: Dispatcher [employer] EDMS Shane Lau RN RN jb4 Wendy Winter Belinda RN RN br2 Kaylee Lewis Mimi RN RN mf3 Yaniv Cleary, DO DO tt7
[2025-07-14] MEDS ORDERED: ONDANSETRON 4 MG/2 ML VIAL ONE (23:22)
[2025-07-14] MEDS ORDERED: HYDROMORPHONE HCL 0.5 MG/0.5 ML INJ ONE (23:22)
[2025-07-15] MEDS ORDERED: NITROGLYCERIN 0.4 MG/TAB SL PRN (00:33)
[2025-07-15] MEDS: HEPARIN/D5W 25,000 UNIT/500 ML BAG IV SCH (02:45)
[2025-07-15] MEDS: INSULIN REGULAR (HUMAN) 100 UNIT/ML SQ SCH (02:48)
[2025-07-15 03:21] VITALS: BMI 31.6
--- NOTE | 2025-07-15 06:49 | P.HP ---
Certification for Inpatient Patient admitted to: Observation With expected LOS: <2 Midnights Patient will require the following post-hospital care: None Practitioner: I am a practitioner with admitting privileges, knowledge of patient current condition, hospital course, and medical plan of care. Services: Services provided to patient in accordance with Admission requirements found in Title 42 Section 412.3 of the Code of Federal Regulations Patient History Date of Service: 07/15/25 Reason for admission: NSTEMI History of Present Illness: Patient is a 55-year-old male with past medical history of type 2 diabetes mellitus, essential hypertension, who reports to ER today complaining of severe chest pain radiating to his left arm with associated tingling and numbness. Patient states his chest pain started yesterday, states at the time he did not have any numbness and tingling on his left arm, described initial chest pain as heavy, and tight pain, states he did not report to ER yesterday because the pain was not severe like the pain he had today. Patient states his chest pain today was so severe, and radiates to his left arm with associated tingling and numbness to his left arm which he did not have yesterday. Patient states the chest pain intensity is about an 8/10. Patient denies ever having such a prior chest pain before. Patient initial troponin in ER was 687.4. During admission assessment, patient still endorses chest pain, but states he felt little better after receiving the morphine. According to report received from ER Doctor, states Dr. Kingsley was consulted on the patient. Course in ER. (1) chest x-ray. Impression: No acute intrathoracic abnormalities Allergies No Known Allergies Allergy (Verified 04/16/24 05:50) Home Medications: Amlodipine [Norvasc*] 5 mg PO DAILY 04/16/24 Gabapentin 100 mg PO BID PRN 04/16/24 Hydralazine [Apresoline*] 25 mg PO BID 04/16/24 Potassium Chloride 10 meq PO DAILY 04/16/24 Empagliflozin [Jardiance] 25 mg PO DAILY #30 tab 04/17/24 Insulin NPH Human Isophane [Novolin N] 10 unit SQ BID #1 vial 04/17/24 Insulin Regular, Human [Novolin R] 10 unit SQ BID #10 ml 04/17/24 - Past Medical/Surgical History Diabetic: Yes -: CAD -: HTN -: HLD -: IDDM Psychosocial/ Personal History: Lives in a trailer with his Sister - Family History Mother -: Heart disease, Hypertension, Diabetes Brother -: Heart disease, Hypertension, Diabetes - Social History Smoking Status: Current every day smoker Alcohol use: Yes CD- Drugs: No Caffeine use: Yes Place of Residence: Home Review of Systems 10-point ROS is otherwise unremarkable Cardiovascular: Chest Pain Physical Examination - Vital Signs Temperature: 98.4 F Blood Pressure: 138/85 Pulse: 79 Respirations: 18 Pulse Ox (%): 97 - Physical Exam General: Alert, In no apparent distress, Oriented x3, Cooperative HEENT: Atraumatic, Normocephalic, PERRLA, Mucous membr. moist/pink, Sclerae nonicteric Neck: Supple, 2+ carotid pulse no bruit, JVD not distended, No Thyromegaly, No LAD, Without JVD or thyroid abnormality Respiratory: Clear to auscultation bilaterally, Normal air movement Cardiovascular: No edema, Normal pulses, Regular rate/rhythm, Normal S1 S2, No gallops, No rubs, No murmurs Capillary refill: <2 Seconds Gastrointestinal: Normal bowel sounds, Soft and benign, Non-distended, W/out hepatomegaly, No ascites, No tenderness, No masses, No rebound, No guarding Musculoskeletal: No clubbing, No swelling, No contractures, No erythema, No tenderness, No warmth Integumentary: No rashes, No breakdown, No significant lesion, No tenderness/swelling, No erythema, No warmth, No cyanosis Neurological: Normal gait, Normal speech, Normal strength at 5/5 x4 extr, Normal tone, Sensation intact, Cranial nerves 3-12 intact, Normal reflexes 2+, Normal affect Lymphatics: No axilla or inguinal lymphadenopathy - Studies Laboratory Data (last 24 hrs) 07/14/25 07/14/25 21:30 21:30 WBC 8.00 Hgb 16.6 Hct 48.4 Plt Count 251 Sodium 134 L Potassium 3.7 BUN 8 Creatinine 1.10 Glucose 343 H Male Exam - Male Exam Inguinal exam: No hernias Assessment and Plan - Plan Patient is a 55-year-old male who reports to ER complaining of severe chest pain, radiates to his left arm with associated numbness and tingling. Patient admitted with NSTEMI, initial troponin 687.4. (1) NSTEMI. -Heparin infusion initiated. -Cardio consult. -Serial troponin every 8 x 3. -Nitro 0.4 mg sublingual as needed every 5 minutes x 3. -Morphine 4 mg as needed every 4 hours. -Order echocardiogram. -EKG every 8 hours x 3. -Aspirin 81 mg p.o. daily. (2)Chronic type 2 diabetes mellitus. -ACHS, moderate sliding scale coverage. (3)Chronic hypertension. -Home medications to be resumed when reconciled. (4)Explained entire treatment plan to the patient, solicited questions answered and voiced understanding. Discharge Plan: Home Plan to discharge in: 72 Hours - Advance Directives Does patient have a Living Will: No Does patient have a Durable POA for Healthcare: No - Code Status/Comfort Care Code Status Assessed: Yes Code Status: Full Code Critical Care: No Time Spent Managing Pts Care (In Minutes): 55
[2025-07-15] MEDS: FLU (Fluarix) 25-26 (6MOS UP)/PF 45 MCG/0.5 ML Syringe IM ONE (07:45)
[2025-07-15] MEDS: ASPIRIN EC 81 MG TAB PO SCH (08:20)
[2025-07-15] MEDS: METOPROLOL TAR 25 MG TAB PO SCH (08:20)
[2025-07-15] MEDS: MORPHINE 4 MG/ML SYR IV PRN (08:20)
[2025-07-15 09:32] LABS: HDL Cholesterol 34.0 mg/dL (40-60); LDL Cholesterol, Calculated 74.0 mg/dL (<130); LDL Cholesterol,Calc NonReport 74.0
--- NOTE | 2025-07-15 10:51 | P.CNS ---
Date of Consult: 07/15/25 Chief Complaint: NSTEMI History of Present Illness: Patient with PMH of HTN, DM, Presented with chest pressure sensation, mid chest, arm numbness, that has been going on since yesterday, deneis any other cardiac symptoms Allergies No Known Allergies Allergy (Verified 04/16/24 05:50) Home medications list reviewed: Yes Home Medications: Amlodipine [Norvasc*] 5 mg PO DAILY 04/16/24 Gabapentin 100 mg PO BID PRN 04/16/24 Hydralazine [Apresoline*] 25 mg PO BID 04/16/24 Metformin HCl 1 tab PO BID 07/15/25 Multivitamin [Multivitamins] 1 tab PO DAILY 07/15/25 Omeprazole [Prilosec] 1 tab PO DAILY 07/15/25 - Past Medical/Surgical History Diabetic: Yes -: CAD -: HTN -: HLD -: IDDM Psychosocial/ Personal History: Lives in a trailer with his Sister - Family History Mother Medical History: Heart disease, Hypertension, Diabetes Brother Medical History: Heart disease, Hypertension, Diabetes - Social History Alcohol use: Yes CD- Drugs: No Caffeine use: Yes Place of Residence: Home Review of Systems 10-point ROS is otherwise unremarkable Physical Examination Temp Pulse Resp BP Pulse Ox 98.3 F 79 16 165/100 H 96 07/15/25 08:00 07/15/25 08:00 07/15/25 08:00 07/15/25 08:00 07/15/25 08:00 General: Alert, In no apparent distress HEENT: Atraumatic, PERRLA, Mucous membr. moist/pink, EOMI, Sclerae nonicteric Neck: Supple, 2+ carotid pulse no bruit, No LAD, Without JVD or thyroid abnormality Respiratory: Clear to auscultation bilaterally, Normal air movement Cardiovascular: Regular rate/rhythm, Normal S1 S2 Gastrointestinal: Normal bowel sounds, No tenderness Musculoskeletal: No tenderness Integumentary: No rashes Neurological: Normal gait, Normal speech, Normal tone, Normal affect Lymphatics: No axilla or inguinal lymphadenopathy Laboratory Data (last 24 hrs) 07/14/25 07/14/25 21:30 21:30 WBC 8.00 Hgb 16.6 Hct 48.4 Plt Count 251 Sodium 134 L Potassium 3.7 BUN 8 Creatinine 1.10 Glucose 343 H - Problems (1) NSTEMI (non-ST elevated myocardial infarction) Current Visit: Yes Status: Acute Plan: patient with typical angina and elevated troponin NPO for coronary angiogram ASA 81 mg daily Lipitor 40 mg daily continue Heparin drip get echo (2) HTN (hypertension) Current Visit: Yes Status: Acute Plan: resume home medications and monitor (3) HLD (hyperlipidemia) Current Visit: Yes Status: Acute Plan: lipitor 40 mg daily
[2025-07-15 13:15] VITALS: TEMP 97.8
[2025-07-15] MEDS: NA CHLORIDE 0.9% 500 ML ONE (15:46)
[2025-07-15] MEDS: MIDAZOLAM HCL 2 MG/2 ML INJ ONE (15:46)
[2025-07-15] MEDS: FENTANYL CITR 100 MCG/2 ML ONE (15:46)
[2025-07-15] MEDS ORDERED: HEPARIN 10,000 UNIT/10 ML VIAL IV ONE (16:12)
[2025-07-15] MEDS ORDERED: HEPA 1000U/500MLS 2,000 UNIT/1,000 ML BAG IV ONE (16:12)
[2025-07-15] MEDS ORDERED: HEPARIN 5000 UNIT/ML 1 ML VIAL ONE (16:12)
[2025-07-15] MEDS ORDERED: LIDOCAINE 1% 20 ML MDV ONE (16:12)
[2025-07-15] MEDS ORDERED: ATROPINE SULF 1 MG/10 ML SYR IV ONE (16:12)
[2025-07-15] MEDS ORDERED: FLUMAZENIL 0.1 MG/ML (5 mL VIAL) IV ONE (16:13)
[2025-07-15] MEDS ORDERED: NALOXONE 0.4 MG/ML VIAL ONE (16:13)
--- NOTE | 2025-07-15 18:24 | P.DS ---
Admission Date: 07/15/25 Discharge Date: 07/15/25 Disposition: ROUTINE DISCHARGE Discharge Condition: FAIR Reason for Admission: NSTEMI Brief History of Present Illness: 55-year-old male with past medical history of type 2 diabetes mellitus, essential hypertension, presented to ER complaining of chest pain radiating to his left arm with associated tingling and numbness, 1 day duration. Patient's initial troponin in ER was 687.4. EKG showed no ischemic changes, cardiology Dr. Kingsley was was contacted by the ED and patient hospitalized for further management. Hospital Course: Diagnosis NSTEMI Essential hypertension DM type II. Patient admitted to the medical floor, diagnosed with NSTEMI, his troponin trended up to 3,000. He was treated with heparin drip. Cardiology Dr. Kingsley evaluated patient and performed cardiac catheterization, and reported mild coronary artery disease with did not warrant any percutaneous intervention. Patient's elevated troponin deemed secondary to microvascular ischemic changes per Dr. Kingsley. Dr. Kingsley recommended aspirin, Plavix and statin which are prescribed on discharge. Patient advised to follow-up with registration clerk within 1 to 2 weeks. Vital Signs/Physical Exam: Temp Pulse Resp BP Pulse Ox 97.8 F 76 15 136/85 95 07/15/25 12:00 07/15/25 12:00 07/15/25 12:00 07/15/25 12:00 07/15/25 12:00 General: Alert, In no apparent distress, Oriented x3 HEENT: Mucous membr. moist/pink, Sclerae nonicteric Neck: Supple, JVD not distended Respiratory: Clear to auscultation bilaterally, Normal air movement Cardiovascular: No edema, Regular rate/rhythm, Normal S1 S2 Gastrointestinal: Soft and benign, Non-distended, No tenderness Musculoskeletal: No swelling, No tenderness Integumentary: No rashes, No cyanosis Neurological: Normal speech, Normal strength at 5/5 x4 extr, Cranial nerves 3-12 intact Laboratory Data at Discharge: WBC 8.00 thou/uL (4.3-10.9) 07/14/25 21:30 Hgb 16.6 g/dL (13.6-17.9) 07/14/25 21:30 Hct 48.4 % (39.6-49.0) 07/14/25 21:30 Plt Count 251 thou/uL (152-406) 07/14/25 21:30 APTT Cancelled 07/15/25 Unknown Sodium 134 mEq/L (136-145) L 07/14/25 21:30 Potassium 3.7 mEq/L (3.5-5.1) 07/14/25 21:30 BUN 8 mg/dL (7-18) 07/14/25 21:30 Creatinine 1.10 mg/dL (0.70-1.30) 07/14/25 21:30 Glucose 343 mg/dL (74-106) H 07/14/25 21:30 Triglycerides 123 mg/dL (<150) 07/15/25 09:00 Cholesterol 133 mg/dL (<200) 07/15/25 09:00 HDL Cholesterol 34 mg/dL (40-60) L 07/15/25 09:00 Cholesterol/HDL Ratio 3.91 07/15/25 09:00 Home Medications: Amlodipine [Norvasc*] 5 mg PO DAILY 04/16/24 Gabapentin 100 mg PO BID PRN 04/16/24 Aspirin [Aspirin EC 81 MG] 81 mg PO DAILY #30 tab 07/15/25 Atorvastatin Calcium [Lipitor] 40 mg PO BEDTIME #30 tab 07/15/25 Clopidogrel Bisulfate [Plavix] 75 mg PO DAILY #30 tab 07/15/25 Metformin HCl 1 tab PO BID 07/15/25 Metoprolol Tartrate [Lopressor*] 25 mg PO BID 6AM 6PM #60 tab 07/15/25 Multivitamin [Multivitamins] 1 tab PO DAILY 07/15/25 Omeprazole [Prilosec] 1 tab PO DAILY 07/15/25 New Medications: Aspirin [Aspirin EC 81 MG] 81 mg PO DAILY #30 tab Atorvastatin Calcium [Lipitor] 40 mg PO BEDTIME #30 tab Metoprolol Tartrate [Lopressor*] 25 mg PO BID 6AM 6PM #60 tab Clopidogrel Bisulfate [Plavix] 75 mg PO DAILY #30 tab Diet: AHA Activity: Ad grace Followup: Rey Kingsley MD [ACTIVE - CAN ADMIT] - 1-2 Weeks LOVE ALEMAN [Primary Care Provider] - Time spent managing pt's care (in minutes): 33
[2025-07-15 19:12] VITALS: BP 123/79; O2SAT 97
--- NOTE | 2025-07-16 22:52 | OP ---
Date of Procedure: 07/15/2025 Surgeon: Rey Kingsley Procedure Performed: Selective coronary angiogram. Indication For Procedure: Non-ST elevation MT. Complications: None. Estimated Blood Loss: Less than 50 cc. Access: Right radial, closed by TR band. Sedation Time: 20 minutes with 1 of Versed and 50 of fentanyl. Description Of Procedure: After risks, benefits, and alternatives were explained to the patient, the patient agreed to proceed with procedure and signed informed consent. The patient was brought back to the energy systems laboratory director, prepped and draped in sterile fashion. Time-out was performed. Sedation was admini stered. Next, right radial access was obtained using ultrasound-guided micropuncture technique. Tig er 4 catheter was advanced over a J-wire to the aortic root. Selective angiogram was done using same catheter. At the end of procedure, catheter was removed over a J-wire. Sheath was removed. TR ban d was applied. Hemostasis achieved and the patient was moved back to recovery in stable condition. Findings: 1. Left main, normal. 2. LAD, proximal 30% to 40% disease, then mild luminal irregularities. 3. Left circ, mild luminal irregularities. 4. RCA, mild luminal irregularities. Assessment: Mild proximal LAD disease. Plan: To continue medical management. TAYLOR/LEAH Voice ID: [id number] Report ID: [id number]
== END 2025-07-15 20:02 | disposition home or self-care (01) | DRG 281 ==
LOC: ER 21:10 → ERHOLD 07-15 00:30 → 2ND 07-15 01:34
PROVIDERS: ADMIT Internal Medicine; ATTEND Internal Medicine
PROC: 4A023N7 Measurement of Cardiac Sampling and Pressure, Left Heart, Percutaneous Approach (ICD-10-PCS; principal; 2025-07-15)
PROC: B2111ZZ Fluoroscopy of Multiple Coronary Arteries using Low Osmolar Contrast (ICD-10-PCS; 2025-07-15)
DX: I21.4 Non-ST elevation (NSTEMI) myocardial infarction (principal); Z59.02 Unsheltered homelessness; E11.9 Type 2 diabetes mellitus without complications; I10 Essential (primary) hypertension; E78.5 Hyperlipidemia, unspecified; I25.2 Old myocardial infarction; I25.118 Atherosclerotic heart disease of native coronary artery with other forms of angina pectoris; F17.210 Nicotine dependence, cigarettes, uncomplicated; Z79.84 Long term (current) use of oral hypoglycemic drugs; Z79.899 Other long term (current) drug therapy; Z79.4 Long term (current) use of insulin; Z79.82 Long term (current) use of aspirin; Z79.02 Long term (current) use of antithrombotics/antiplatelets
CPT/HCPCS: 36415; 71045; 76937; 80048; 80061; 82947; 83880; 84484; 85025; 85730; 93005; 93306; 93454; 96372; 96374; 96375; 99152; 99285; C1893; J0461; J1171; J1644; J1650; J1815; J2003; J2250; J2312; J2405; J3010; J7040; Q9966